=== PATIENT | female | born 1955 | race Caucasian/White ===

== ENCOUNTER → 2018-08-19 07:17 | Outpatient (CLI) | payer OTHER, SELFPAY ==
[2018-08-19 10:52] LABS: Anion Gap 4 (5-15); BUN 21 mg/dL (7-18); BUN/Creat Ratio 19.6 RATIO (10-20); CRP < 2.90 mg/L (0.0-3.0); Calcium,Total 8.8 mg/dL (8.5-10.1); Chloride 108 mmol/L (98-107); Cholesterol 239 mg/dL (200); Creatinine, Serum 1.07 mg/dL (0.55-1.02); EST Glomerular Filtration Rate 55 mL/min (>60); Est Glom Filt Rate - Afr Amer 67 mL/min (>60); Glucose 86 mg/dL (74-106); High Density Lipoprotein 71 mg/dL; Potassium 3.3 mmol/L (3.5-5.1); Sodium Level 141 mmol/L (136-145); T4 Total, Thyroxin 7.2 ug/dL (4.8-13.9); Thyroid Stim Hormone (TSH) 9.63 uIU/mL (0.358-3.74); Triglycerides 125 mg/dL; Very Low Density Lipoprotein 25 mg/dL (5-40)
== END ==
DX: I73.00 Raynaud's syndrome without gangrene (principal); E78.5 Hyperlipidemia, unspecified; E03.9 Hypothyroidism, unspecified
CPT/HCPCS: 36415; 80048; 80061; 84436; 84443; 86038; 86140

== ENCOUNTER → 2018-09-02 08:51 | Outpatient (CLI) | payer OTHER, SELFPAY ==
--- NOTE | 2018-09-02 09:07 | ART_ITS ---
Reason For Study: PVD/suspected raynauds Procedure A bilateral lower extremity continuous wave Doppler with analog waveform analysis,segmental pressures,and ankle brachial indexes without exercise. Left Segmental Pressures Left brachial= 120mmHg. Left posterior tibial artery = 134mmHg. Left dorsalis pedis artery = 128mmHg. Left digit = 68 mmHg. The left dorsalis pedis waveforms are triphasic. The left posterior tibial artery waveforms are triphasic. Right Segmental Pressures Right brachial= 114mmHg. Right posterior tibial artery = 132mmHg. Right dorsalis pedis artery = 133mmHg. Right digit = 69 mmHg. The right dorsalis pedis waveforms are triphasic. The right posterior tibial artery waveforms are triphasic. Indices The right ankle brachial index by the dorsalis pedis is 1.11. The right ankle brachial index by the posterior tibial artery is 1.10. The right digital-brachial index is 0.58. The left ankle brachial index by the dorsalis pedis is 1.07. The left ankle brachial index by the posterior tibial artery is 1.12. The left digital-brachial index is 0.57. Interpretation Summary Triphasic Doppler waveforms are noted at ankle level bilaterally. Pulse-volume recording waveform amplitudes appear diminished at digital level bilaterally. Resting ankle-brachial indices are normal bilaterally. Digital-brachial indices are mildly diminished bilaterally. Arterial flow appears to be relatively normal at ankle level bilaterally. There is evidence of mild, distal, small-vessel arterial occlusive disease at digital level in the lower extremities bilaterally. Ordering Physician: NKECHI GIMENEZ Performed By: Jessica Florian RVT
== END ==
DX: I73.9 Peripheral vascular disease, unspecified (principal)
CPT/HCPCS: 93923

== ENCOUNTER → 2018-10-04 15:19 | Outpatient (CLI) | payer OTHER, SELFPAY ==
[2017-01-19 06:32] VITALS: BMI 19.7
[2018-10-04 17:31] LABS: Absolute Lymphocyte Count 2.07 X10^3/ul (0.83-4.51); Absolute Neutrophil Count 2.6 X10^3/uL (2.0-7.7); Basophil# 0.02 X10^3/uL; Basophil% 0.4 % (0-1); Eosinophil# 0.11 X10^3/uL; Hematocrit 41.8 % (37-47); Hemoglobin 13.4 g/dl (12.0-15.0); Lymphocyte # 2.07 X10^3/ul (4.0); Lymphocyte % 37.2 % (19-41); Mean Corp Hgb Conc 32.1 g/gl (32-36); Mean Corpuscular Hgb 29.5 pg (27.0-32.0); Mean Corpuscular Volume 91.9 fL (81-99); Mean Platelet Vol. 10.8 fl (6.2-12.0); Monocyte# 0.73 X10^3/uL; Monocyte% 13.1 % (0-10); Neutrophil # 2.62 X10^3/uL (2.7-7.7); Neutrophil % 47.1 % (47-70); Platelet Count 236 K/mm3 (150-450); RBC Distribution Width CV 14.1 % (11.6-14.6); RBC Distribution Width SD 46.4 fl (35.1-43.9); Red Blood Count 4.55 M/mm3 (4.2-5.4); White Blood Count 5.6 K/mm3 (4.4-11.0)
[2018-10-04 17:33] LABS: Color, Urine Yellow (Yellow); Glucose, Dipstick Normal (Normal); Ketone-Dipstick Negative (Negative); Leukocyte Esterase-Dipstick 500 /ul (Negative); Nitrite-Dipstick Negative (Negative); Occult Blood-Urine Negative /ul (Negative); Protein-Dipstick Negative (Negative); Urine Bilirubin Dipstick Negative (Negative); Urine Clarity Clear (Clear); Urine Urobilinogen Normal (Normal)
[2018-10-04 17:42] LABS: POSITIVE COUNT NO; POSITIVE DIFFERENTIAL NO; POSITIVE MORPHOLOGY NO
[2018-10-04 17:52] LABS: ALB/GLOB Ratio 0.8 RATIO (0.9-2.4); AST(SGOT) 18 U/L (15-37); Alanine Aminotransfer ALT/SGPT 35 U/L (13-56); Albumin, Serum 3.2 g/dL (3.2-5.0); Alkaline Phosphatase 121 U/L (45-117); Anion Gap 7 (5-15); BUN 27 mg/dL (7-18); BUN/Creat Ratio 27.1 RATIO (10-20); Calcium,Total 8.6 mg/dL (8.5-10.1); Chloride 108 mmol/L (98-107); EST Glomerular Filtration Rate 60 mL/min (>60); Est Glom Filt Rate - Afr Amer 72 mL/min (>60); Globulin 3.9 g/dL (2.2-4.2); Glucose 77 mg/dL (74-106); Potassium 3.9 mmol/L (3.5-5.1); Protein, Total 7.1 g/dL (6.4-8.2); Sodium Level 142 mmol/L (136-145)
[2018-10-07 19:39] LABS: Anti-Smooth Muscle ABS 13 Units (0-19); HEPATITIS B SURFACE AG Negative (Negative); Hep C Antibodies <0.1 s/co ratio (0.0-0.9)
== END ==
DX: N18.9 Chronic kidney disease, unspecified (principal); M32.9 Systemic lupus erythematosus, unspecified
CPT/HCPCS: 36415; 80053; 81002; 83516; 85025; 86225; 86235; 86803; 87340

== ENCOUNTER → 2019-04-11 16:43 | Outpatient (CLI) | payer OTHER, SELFPAY ==
[2017-01-19 06:32] VITALS: BMI 19.7
[2019-04-11 18:02] LABS: AST(SGOT) 18 U/L (15-37); Alanine Aminotransfer ALT/SGPT 32 U/L (13-56); Albumin, Serum 3.7 g/dL (3.2-5.0); Alkaline Phosphatase 122 U/L (45-117); Globulin 3.6 g/dL (2.2-4.2); Protein, Total 7.3 g/dL (6.4-8.2); Thyroid Stim Hormone (TSH) 9.18 uIU/mL (0.358-3.74)
[2019-04-16 17:11] LABS: Thyroglobulin Antibody < 1.0 IU/mL (0.0-0.9); Thyroid Peroxidase AB 386 IU/mL (0-34)
== END ==
DX: E03.9 Hypothyroidism, unspecified (principal)
CPT/HCPCS: 36415; 80076; 84443; 86376; 86800

== ENCOUNTER → 2019-04-18 10:26 | Outpatient (CLI) | payer OTHER, SELFPAY ==
[2017-01-19 06:32] VITALS: BMI 19.7
[2019-04-21 14:07] LABS: Thyroid Peroxidase AB 390 IU/mL (0-34)
[2019-04-21 15:10] LABS: Thyroglobulin Antibody < 1.0 IU/mL (0.0-0.9)
== END ==
DX: E03.9 Hypothyroidism, unspecified (principal)
CPT/HCPCS: 36415; 86376; 86800

== ENCOUNTER → 2019-11-12 07:31 | Outpatient (CLI) | payer OTHER, SELFPAY ==
[2019-07-07 06:41] VITALS: BMI 19.7
== END ==
DX: E03.9 Hypothyroidism, unspecified (principal)
CPT/HCPCS: 36415; 84443

== ENCOUNTER → 2020-01-16 13:01 | Outpatient (CLI) | payer OTHER, SELFPAY ==
[2019-07-07 06:41] VITALS: BMI 19.7
--- NOTE | 2020-01-16 13:40 | BI_ITS ---
MAMMOGRAPHY - BILATERAL SCREENING REASON FOR EXAM: Female, 64 years old. Routine annual screening examination. PERTINENT HISTORY: Sister with breast cancer. Aunt with breast cancer. TECHNIQUE: Digital bilateral breast michelle (3D mammographic acquisition) in the CC and MLO projections. 2-D mediolateral oblique (MLO) and craniocaudad (CC) views of both breasts were obtained. CAD: Full Field Digital Mammography with Computer Added Detection was performed. COMPARISON: Comparison is made with prior examination dated 05/08/2017 and 09/11/2012. FINDINGS: Breast Composition: The breasts are extremely dense, which lowers the sensitivity of mammography. There are no dominant masses or suspicious calcifications. No other significant abnormalities are identified. There has been no significant change since the prior study. BI/SCREEN MAMM (CAD) W/MICHELLE BILAT IMPRESSION: Stable bilateral screening mammogram. Yearly follow-up mammogram recommended. (A) ASSESSMENT CATEGORY: BIRADS Category 1: Negative. A letter regarding these results will be sent to the patient by the facility within 30 days. Approximately 10% of breast cancers are not detected by mammography. A normal mammogram should not delay biopsy of a clinically suspicious abnormality. [id number] Electronically Signed: Dario Renteria, at 14:13 EDT , Service support ,
== END ==
DX: Z12.31 Encounter for screening mammogram for malignant neoplasm of breast (principal)
CPT/HCPCS: 77063; 77067

== ENCOUNTER 2020-05-21 12:43 | Outpatient (RCR) | payer OTHER, SELFPAY ==
[2019-07-07 06:41] VITALS: BMI 19.7
== END 2020-05-21 23:59 ==
LOC: IMMUN 12:43
PROVIDERS: Visit Provider Family Medicine
DX: Z23 Encounter for immunization (principal)
CPT/HCPCS: 0011A; 0012A; 91301

== ENCOUNTER → 2020-11-19 07:20 | Outpatient (CLI) | payer OTHER, SELFPAY ==
[2019-07-07 06:41] VITALS: BMI 19.7
[2020-11-19 10:32] LABS: T4 Total, Thyroxin 7.6 ug/dL (4.8-13.9); Thyroid Stim Hormone (TSH) 9.99 uIU/mL (0.358-3.74)
[2020-11-20 08:35] LABS: Thyroid Peroxidase AB 396 IU/mL (0-34)
== END ==
DX: E03.9 Hypothyroidism, unspecified (principal)
CPT/HCPCS: 36415; 84436; 84443; 86376

== ENCOUNTER → 2021-01-20 15:18 | Outpatient (CLI) | payer OTHER, SELFPAY ==
--- NOTE | 2021-01-20 15:22 | BI_ITS ---
MAMMOGRAPHY - BILATERAL SCREENING REASON FOR EXAM: Female, 65 years old. Routine annual screening examination. PERTINENT HISTORY: Aunt with breast cancer. TECHNIQUE: Digital bilateral breast michelle (3D mammographic acquisition) in the CC and MLO projections. 2-D mediolateral oblique (MLO) and craniocaudad (CC) views of both breasts were obtained. CAD: Full Field Digital Mammography with Computer Added Detection was performed. COMPARISON: Comparison is made with prior examination of 01/16/2020 and 05/08/2017. FINDINGS: Breast Composition: The breasts are extremely dense, which lowers the sensitivity of mammography. There are no dominant masses or suspicious calcifications. Stable small benign-appearing bilateral axillary nodes. No other significant abnormalities are identified. There has been no significant change since the prior study. BI/SCRN MAMM (CAD)W/MICHELLE BILAT IMPRESSION: Stable bilateral screening mammogram. Yearly follow-up mammogram recommended. (A) ASSESSMENT CATEGORY: BIRADS Category 2: Benign. A letter regarding these results will be sent to the patient by the facility within 30 days. Approximately 10% of breast cancers are not detected by mammography. A normal mammogram should not delay biopsy of a clinically suspicious abnormality. [id number] Electronically Signed: Dario Renteria MD at 8:36 EDT , Service support ,
== END ==
DX: Z12.31 Encounter for screening mammogram for malignant neoplasm of breast (principal)
CPT/HCPCS: 77063; 77067

== ENCOUNTER → 2022-01-27 | Outpatient (CLI) | payer OTHER, SELFPAY ==
--- NOTE | 2022-01-27 08:34 | BI_ITS ---
MAMMOGRAPHY - BILATERAL SCREENING REASON FOR EXAM: Female, 66 years old. Routine annual screening examination. PERTINENT HISTORY: Sister with breast cancer. Aunts with breast cancer. TECHNIQUE: Digital bilateral breast michelle (3D mammographic acquisition) in the CC and MLO projections. 2-D mediolateral oblique (MLO) and craniocaudad (CC) views of both breasts were obtained. CAD: Full Field Digital Mammography with Computer Added Detection was performed. COMPARISON: Comparison is made with prior study dated 01/20/2021 and 01/16/2020. FINDINGS: Breast Composition: The breasts are extremely dense, which lowers the sensitivity of mammography. There are no dominant masses or suspicious calcifications. Stable small benign-appearing bilateral axillary lymph nodes. No other significant abnormalities are identified. There has been no significant change since the prior study. BI/SCRN MAMM (CAD)W/MICHELLE BILAT IMPRESSION: Stable bilateral screening mammogram. Yearly follow-up mammogram recommended. (A) ASSESSMENT CATEGORY: BIRADS Category 2: Benign. A letter regarding these results will be sent to the patient by the facility within 30 days. Approximately 10% of breast cancers are not detected by mammography. A normal mammogram should not delay biopsy of a clinically suspicious abnormality. [id number] Electronically Signed: Dario Renteria MD at 10:03 EDT ,
== END | disposition home or self-care (01) ==
LOC: OPBI 08:32
PROVIDERS: PCP Internal Medicine; Visit Provider Nurse Practitioner Women's Health
DX: Z12.31 Encounter for screening mammogram for malignant neoplasm of breast (principal)
CPT/HCPCS: 77063; 77067

== ENCOUNTER → 2022-11-14 | Outpatient (CLI) | payer OTHER, SELFPAY ==
--- NOTE | 2022-11-13 | FLU_PTH ---
PATIENT: JAMARI THOMPSON LOC: [facility] U#:[id number] AGE/SX: 66/F ROOM: RE11/14/[address]: Dr. Kasey Go MD : 1955 BED: DIS: 11/14/2022 SPEC #: [id number] RECD: 11/14/22 12:11 STATUS: UNNO JHON #: [id number] ERNIE: 11/13/22 00:[address]: Kasey Go DEPT: CYTOLOGY RECD BY: Keely Washington ENTERED: 11/14/22 13:19 SP TYPE: Fluid OTHR DR: Dr. Tracy Treviño MD Tissues: A - Thyroid gland, NOS B - Thyroid gland, NOS Procedures: Special Stain Group II Surgery Specimen Level IV Cytospin Fluid Cytology Other HEADER OPERATION: Ultrasound-guided fine needle aspiration of right thyroid PRE-OP DIAGNOSIS: Abnormal ultrasound TISSUE SUBMITTED: A - FNA right thyroid fluid, B - FNA right thyroid x6 slides DIAGNOSIS CYTOLOGY A. Right thyroid fluid, fine needle aspiration (cytospin and cell block): Negative for malignant cells. See comment. B. Right thyroid, fine needle aspiration (smears): Consistent with benign follicular/colloid nodule ([place] Category II). Adequate for evaluation. See comment. SJ:anca 11/15/2022 COMMENT A. A few clusters of benign follicular cells are noted. Correlation with clinical, radiologic findings and appropriate follow up are necessary. The [place] System for thyroid diagnostic categorization was used in the evaluation of this case. CYTOLOGY STUDY Slides are reviewed. CYTOLOGY GROSS A - Received is 30 ml of cloudy brown fluid labeled with the patient's name and and designated per the requisition as right thyroid. Submitted for cytology preparation including cell block. B - Received are six smears labeled with the patient's name and designated per the requisition as right thyroid. Submitted for staining. / anca 11/14/2022 TC:5 CPT: 49861 x2, 30458
== END | disposition home or self-care (01) ==
LOC: LABSPEC 12:42
PROVIDERS: PCP Internal Medicine; Referring Provider Surgery; Visit Provider Surgery
DX: R94.6 Abnormal results of thyroid function studies (principal)
CPT/HCPCS: 88108; 88161; 88305; 88313

== ENCOUNTER → 2023-01-29 | Outpatient (CLI) | payer MEDICARE, SELFPAY ==
--- NOTE | 2023-01-29 08:25 | BI_ITS ---
MAMMOGRAPHY - BILATERAL SCREENING REASON FOR EXAM: Female, 67 years old. Routine annual screening examination. PERTINENT HISTORY: Sister with breast cancer. Aunt with breast cancer. TECHNIQUE: Digital bilateral breast michelle (3D mammographic acquisition) in the CC and MLO projections. 2-D mediolateral oblique (MLO) and craniocaudad (CC) views of both breasts were obtained. CAD: Full Field Digital Mammography with Computer Added Detection was performed. COMPARISON: Comparison is made with prior study dated January 27, 2022 and January 20, 2021. FINDINGS: Breast Composition: The breasts are extremely dense, which lowers the sensitivity of mammography. There are no dominant masses or suspicious calcifications. Stable small benign-appearing bilateral axillary lymph nodes. No other significant abnormalities are identified. There has been no significant change since the prior study. BI/SCRN MAMM (CAD)W/MICHELLE BILAT IMPRESSION: Stable bilateral screening mammogram. Yearly follow-up mammogram recommended. (A) ASSESSMENT CATEGORY: BIRADS Category 2: Benign. A letter regarding these results will be sent to the patient by the facility within 30 days. Approximately 10% of breast cancers are not detected by mammography. A normal mammogram should not delay biopsy of a clinically suspicious abnormality. [id number] Electronically Signed: Dario Renteria MD at 9:27 EDT ,
== END | disposition home or self-care (01) ==
PROVIDERS: PCP Internal Medicine; Referring Provider Nurse Practitioner Women's Health; Visit Provider Nurse Practitioner Women's Health
DX: Z12.31 Encounter for screening mammogram for malignant neoplasm of breast (principal)
CPT/HCPCS: 77063; 77067

== ENCOUNTER 2023-04-04 21:39 | Emergency (ER) | payer MEDICARE, SELFPAY ==
[2023-04-04 21:39] VITALS: BP 140/85; PULSE 75; RESP 16; TEMP 36.2; O2SAT 96; BMI 22.8
--- NOTE | 2023-04-04 21:51 | EX.ED.UPPERE ---
HPI History of Present Illness Chief Complaint: Laceration Narrative Narrative: 67-year-old female who denies significant past medical history presents with her sister for a laceration on her left hand that she sustained when she cut it on a broken pipe plate that was ceramic. The pipeline had already been broken and then was in the garbage. When she went to throw away something else, she pushed the item down, and sustained a laceration to her left hand from the broken pipe plate. She states that she sustained a laceration approximately 2 hours ago. She is unsure of her last tetanus immunization, may have been 10 years ago. She tried to get the laceration on her left hand at the base of her pinky finger to stop and it finally did, but she is not sure how deep it is. She denies any foreign body sensation but states she has a throbbing pain in her left hand. She is right-hand dominant. She denies other injury. 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 Had mets. had done radiation. Doing chemo now. No surgery. Surgical History Cataract extraction status of right eye H/O inguinal hernia repair History of rhinoplasty Social History Smoking Status: Never smoker alcohol intake: never substance use type: does not use what type of physical activity do you participate in: walking frequency: 5-6 times per week seatbelt use: always do you feel safe at home: Yes additional social history: Single ROS ROS ED ROS Narrative Constitutional: No fever, no chills. HEENT: No sore throat. No neck pain. No loss of vision. No rhinorrhea. Cardiovascular: No chest pain. No palpitations. No pedal edema. Respiratory: No cough, no shortness of breath. Abdominal: No abdominal pain. No nausea. No vomiting. Genitourinary: No dysuria. No hematuria. Musculoskeletal: No myalgias. No arthralgias. Neurologic: No headaches. No dizziness. No lightheadedness. Skin: No rash. No change in color. Positive laceration to left palm Psychiatric: No depression. No anxiety. EXAM Physical Exam Narrative Exam Narrative: Afebrile. Vital signs noted. HEENT: Normocephalic. Atraumatic. PERRL, EOMI. Neck soft and supple. No point tenderness or step off. Cardiovascular: Regular rate and rhythm. No murmurs, rubs, or gallops appreciated. Respiratory: No tachypnea. Lungs clear to auscultation bilaterally. Gastrointestinal: Abdomen soft, nontender, with normoactive bowel sounds. No rebound or guarding. Neurological: Awake. Alert. Nonfocal, nonlateralizing. Skin: No rash. Normal color. No pallor. 1.5 cm laceration running obliquely on palm of left hand below fifth digit. Minimal oozing from midportion of the laceration. Full range of motion of left digits. Good capillary refill. Palpable radial pulse. Musculoskeletal: No pedal edema. Full range of motion extremities. Const Vital Signs: 04/04/23 21:39 Temperature 97.2 F L Temperature Source Temporal Pulse Rate 75 Respiratory Rate 16 Blood Pressure 140/85 H Blood Pressure Mean 103 Pulse Ox 96 Oxygen Delivery Method Room Air MDM MDM MDM Narrative Medical decision making narrative: I do not feel x-rays are indicated. Her tetanus immunization will be updated. I do feel that in order to achieve hemostasis, that the wound should be cleansed and sutures applied. She denies foreign body sensation. She was informed of the risk of infection and scarring and acknowledges an understanding. See procedure note for full details. 3 simple interrupted sutures using five-point 0 Ethilon were used for the skin closure and hemostasis. She was placed in a dry sterile dressing. She will have the sutures removed by her primary care provider in the next 7 to 10 days or return to the emergency department. She will take [id number] analgesics as needed. I feel she can be discharged safely home with follow-up. Return instructions to the emergency department reviewed. Disposition is discharged home in improved and stable condition. History & Record Review Discussion w/independent historian: Patient Additional record(s) reviewed:: Prior ED visit (Noncontributory to current chief complaint.) Differential Diagnosis Differential Diagnosis: Not applicable. Procedures Lacerations Left hand: Length: 0.59 in Depth: Skin Shape: Linear Prep: Sterile Conditions and Shure-Clens Laceration repair: Irrigated, Lidocaine and Local Number of Sutures/[place]: 3 Suture Information: Ethilon, Simple and 5-0 Comment: Patient tolerated procedure well. Discharge Plan Triage Chief Complaint: Laceration ED Provider: Manjeet Moncada Dx/Rx/DC Orders Clinical Impression: Need for Tdap vaccination, Laceration of hand, left Instructions: ED Laceration, Hand: All Closures Prescriptions: No Action cholecalciferol (vitamin D3) [Vitamin D3] 50 mcg (2,000 unit) capsule 50 mcg PO DAILY Primary Care Provider: Tracy Treviño Referrals: Tracy Treviño MD [Primary Care Provider] - 10 Day for suture removal Activity Restrictions/Additional Instructions: Return with fever, drainage of pus from the wound, increased redness of wound, new or worsening symptoms. Disposition Disposition: Home, Self Care
[2023-04-04] MEDS: Diphth,Pertuss(Acell),Tet Vac 0.5 ML Vial IM (21:57)
[2023-04-04] MEDS: Lidocaine 1% (20 ml mdv) 20 ML Vial INFILT (21:57)
[2023-04-04 22:39] VITALS: BP 124/68; PULSE 69
== END 2023-04-04 22:50 | disposition home or self-care (01) ==
PROVIDERS: Emergency Provider Emergency Medicine; PCP Internal Medicine; Visit Provider Emergency Medicine
DX: S61.412A Laceration without foreign body of left hand, initial encounter (principal); Z23 Encounter for immunization; X58.XXXA Exposure to other specified factors, initial encounter
CPT/HCPCS: 12001; 90471; 90715; 99283

== ENCOUNTER 2023-05-03 15:18 | Emergency (ER) | payer MEDICARE, SELFPAY ==
[2023-05-03 15:19] VITALS: BP 130/85; PULSE 72; RESP 18; TEMP 35.5; O2SAT 100; BMI 21.7
[2023-05-03 15:56] LABS: Absolute Lymphocyte Count 2.63 X10^3/uL (0.83-4.51); Absolute Neutrophil Count 3.1 X10^3/uL (2.0-7.7); Basophil# 0.04 X10^3/uL; Basophil% 0.6 % (0-1); Eosinophil# 0.12 X10^3/uL; Eosinophils% 1.9 % (0-5); Hematocrit 45.6 % (37-47); Hemoglobin 14.4 g/dL (12.0-15.0); Lymphocyte # 2.63 X10^3/ul (0.83-4.51); Lymphocyte % 41.1 % (19-41); Mean Corp Hgb Conc 31.6 g/dL (32-36); Mean Corpuscular Hgb 29.2 pg (27.0-32.0); Mean Corpuscular Volume 92.5 fL (81-99); Mean Platelet Vol. 10.8 fl (6.2-12.0); Monocyte# 0.54 X10^3/uL; Monocyte% 8.4 % (0-10); NRBC Flagged by Analyzer 0 % (0-5); Neutrophil # 3.05 X10^3/uL (2.7-7.7); Neutrophil % 47.7 % (47-70); Platelet Count 299 K/mm3 (150-450); RBC Distribution Width CV 13.5 % (11.6-14.6); RBC Distribution Width SD 46.2 fl (35.1-43.9); Red Blood Count 4.93 M/mm3 (4.2-5.4); White Blood Count 6.4 K/mm3 (4.4-11.0)
[2023-05-03 16:14] LABS: ALB/GLOB Ratio 0.9 RATIO (0.9-2.4); AST(SGOT) 19 U/L (15-37); Alanine Aminotransfer ALT/SGPT 23 U/L (13-56); Albumin, Serum 3.5 g/dL (3.2-5.0); Alkaline Phosphatase 94 U/L (45-117); Anion Gap 5 (5-15); BUN 27 mg/dL (7-18); BUN/Creat Ratio 24.5 RATIO (10-20); Calcium,Total 8.7 mg/dL (8.5-10.1); Chloride 110 mmol/L (98-107); EST Glomerular Filtration Rate 53 mL/min (>60); Est Glom Filt Rate - Afr Amer 64 mL/min (>60); Estimated Creatinine Clearance 42.86 ml/min; Globulin 3.8 g/dL (2.2-4.2); Glucose 93 mg/dL (74-106); Potassium 3.6 mmol/L (3.5-5.1); Protein, Total 7.3 g/dL (6.4-8.2); Sodium Level 140 mmol/L (136-145)
[2023-05-03 16:14] LABS: Mucous, Urine 0 SEEN /hpf (<or=2+); Squamous Epithelial Cells - UA 0 SEEN /hpf (5-10)
[2023-05-03 16:17] LABS: Color, Urine Yellow (Yellow); Glucose, Dipstick Normal (Normal); Ketone-Dipstick 15 mg/dl (Negative); Leukocyte Esterase-Dipstick 500 /ul (Negative); Nitrite-Dipstick Negative (Negative); Occult Blood-Urine 50 /ul (Negative); Protein-Dipstick 30 mg/dl (Negative); Urine Bilirubin Dipstick Negative (Negative); Urine Clarity Sl. Cloudy (Clear); Urine Urobilinogen Normal (Normal)
[2023-05-03 16:27] LABS: Bacteria 1+ /hpf (None Seen); Red Blood Cells-Urine 10-25 SEEN /hpf (0-5); Transitional Epithelial - Ur 5-10 SEEN /hpf (0-5); White Blood Cells >100 SEEN /hpf (0-5)
--- NOTE | 2023-05-03 16:57 | EDS_ITS ---
HPI HPI - Female History of Present Illness Chief Complaint: Complaint Narrative Narrative: 67-year-old female presenting with dysuria, urinary frequency, hematuria. Patient states she has not had a UTI in many years. She states he started having symptoms a few days ago. No fevers. No chills. She was sick around [place] and thought she had something viral which resolved and she did not fevers at that time. Currently she denies chest pain, palpitations, shortness of breath, cough, fever, chills, myalgias. No abdominal pain or flank pain. No diarrhea or constipation. Patient states he simply has a urinary tract infection symptoms and generally feels unwell. She states she has been able to eat and drink and she is not vomiting. She went to urgent care to have her self assessed and they told her to come to the emergency room for IVs. She is unsure why as she states has been drinking plenty of fluids at home. 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 Had mets. had done radiation. Doing chemo now. No surgery. Surgical History Cataract extraction status of right eye H/O inguinal hernia repair History of rhinoplasty Social History Smoking Status: Never smoker alcohol intake: never substance use type: does not use what type of physical activity do you participate in: walking frequency: 5-6 times per week seatbelt use: always do you feel safe at home: Yes additional social history: Single ROS ROS ED Constitutional Constitutional ED: Denies chills, fever(s) or sweats Eyes Eyes: Denies blurry vision or change in vision ENT ENT ED: Denies ear pain, rhinorrhea or sore throat Cardiovascular Cardiovascular: Denies chest pain, palpitations or racing heartbeat Respiratory/Chest Respiratory/Chest: Denies cough, dyspnea or sputum Gastrointestinal Gastrointestinal: Denies abdominal pain, constipation, diarrhea or vomiting Genitourinary Genitourinary ED: Reports dysuria, hematuria and urinary frequency Musculoskeletal Musculoskeletal: Denies arthralgias, myalgias or neck pain Integumentary Denies abscess, Abrasions or rash Neurologic Neurologic: Denies headache(s), paresthesias or weakness Psychiatric Psychiatric: Denies anxiety, depression, suicidal ideation or suicidal thoughts Endocrine Endocrinology: Denies polydipsia or polyuria EXAM Physical Exam Const Vital Signs: 05/03/23 15:19 Temperature 96 F L Temperature Source Temporal Pulse Rate 72 Respiratory Rate 18 Blood Pressure 130/85 H Blood Pressure Mean 100 Pulse Ox 100 Oxygen Delivery Method Room Air Positive well nourished General Appearance ED: NAD HEENT Reports moist mucous membranes Eyes PERRL and EOMs intact bilaterally Neck no lymphadenopathy Chest Wall inspection of chest normal Resp normal respiratory effort and clear to auscultation bilaterally Auscultation: Negative for rales, rhonchi or wheezes Cardio regular rate and regular rhythm GI normal to inspection, nondistended, normoactive bowel sounds Neuro oriented x3 and CN's II-XII intact bilaterally Sensorium / Orientation: alert Psych mental status grossly normal Skin no rashes or lesions noted MDM MDM MDM Narrative Medical decision making narrative: Well-appearing 67-year-old female with urinary symptoms. Vital signs are stable she is afebrile. She is pleasant and smiling and appears to be in no acute distress. She states she simply has UTI symptoms and she does not feel she is dehydrated. The labs were put in while the patient was in the waiting room. CBC was obtained to assess for blood cell count, hemoglobin, platelets. CMP to assess liver function and electrolytes. Urinalysis to assess for UTI. On examination she has no CVA tenderness. Is likely she has UTI. CBC shows no leukocytosis. Hemoglobin hematocrit are stable. Platelets are normal. Function within normal limits. Slightly elevated 1.10 and GFR slightly decreased at 53. BUN/creatinine ratio 24.5. Patient was given a liter normal saline. Patient will be given Zofran and Keflex for home. Return precautions were discussed. Impression: 1. Cystitis 2. Dehydration Lab Data Attestation: I reviewed the patient's lab results. Labs: Laboratory Results - last 24 hr 05/03/23 05/03/23 15:30 15:55 WBC 6.4 RBC 4.93 Hgb 14.4 Hct 45.6 MCV 92.5 MCH 29.2 MCHC 31.6 L RDW Std Deviation 46.2 H RDW Coeff of [place] 13.5 Plt Count 299 MPV 10.8 Immature Gran % (Auto) 0.300 Neut % (Auto) 47.7 Lymph % (Auto) 41.1 H [place] % (Auto) 8.4 Eos % (Auto) 1.9 Baso % (Auto) 0.6 Absolute Neuts (auto) 3.1 Absolute Lymphs (auto) 2.63 Nucleated RBC % 0 Sodium 140 Potassium 3.6 Chloride 110 H Carbon Dioxide 25.0 Anion Gap 5 BUN 27 H Creatinine 1.10 H Estim Creat Clear Calc 42.86 Est GFR (MDRD) Af Amer 64 Est GFR (MDRD) Non-Af 53 L BUN/Creatinine Ratio 24.5 H Glucose 93 Calcium 8.7 Total Bilirubin 0.60 AST 19 ALT 23 Alkaline Phosphatase 94 Total Protein 7.3 Albumin 3.5 Globulin 3.8 Albumin/Globulin Ratio 0.9 Urine Color Yellow Urine Clarity Sl. Cloudy Urine pH 5.0 Ur Specific [place] 1.030 Urine Protein 30 H Urine Glucose (UA) Normal Urine Ketones 15 H Urine Occult Blood 50 H Urine Nitrite Negative Urine Bilirubin Negative Urine Urobilinogen Normal Ur Leukocyte Esterase 500 H Urine RBC 10-25 SEEN Urine WBC >100 SEEN Ur Squamous Epith Cells 0 SEEN Ur Transition Epith Cell 5-10 SEEN Urine Bacteria 1+ Urine Mucus 0 SEEN Discharge Plan Triage Chief Complaint: Complaint Other Complaint: Weakness ED Provider: Rebel Grider Dx/Rx/DC Orders Instructions: ED Cystitis Female Adult Prescriptions: New cephalexin 500 mg capsule 500 mg PO Q12 Qty: 14 0RF No Action cholecalciferol (vitamin D3) [Vitamin D3] 50 mcg (2,000 unit) capsule 50 mcg PO DAILY Primary Care Provider: Tracy Treviño Referrals: Tracy Treviño MD [Primary Care Provider] - Disposition Disposition: Home, Self Care
[2023-05-03] MEDS: Cephalexin 250 MG Capsule 500 MG PO (17:10)
--- OUTSIDE RECORDS SUMMARY | 2023-05-03 19:01 | XMS RPT_ITS | CCD ---
Author Name Unknown Address [address] [place] [address] Organization [facility] Care Team Providers Care Oil Heater Operator Name Role Phone Soheila KAUR, Tiffany Carey Unavailable Nitza Treviño MD Primary Care Provider Nitza Treviño MD Primary Care Provider Nitza Treviño MD Primary Care Provider CORINA KENT Attending Unavailable TALAMPAS, NITZA D Primary Care Unavailable CORINA KENT Attending Unavailable TALAMPAS, NITZA D Primary Care Unavailable KASEY GO Attending Unavailable TALAMPAS, NITZA D Primary Care Unavailable KASEY GO Attending Unavailable TALAMPAS, NITZA D Primary Care Unavailable KASEY GO Attending Unavailable YOLI CORINA Referring Unavailable TALAMPAS, NITZA D Primary Care Unavailable YOLICORINA Referring Unavailable TALAMPAS, NITZA D Primary Care Unavailable YOLICORINA Attending Unavailable TALAMPAS, NITZA D Primary Care Unavailable TALAMPAS, NITZA D Referring Unavailable TALAMPAS, NITZA D Primary Care Unavailable YOLICORINA Attending Unavailable TALAMPAS, NITZA D Primary Care Unavailable TALAMPAS, NITZA D Referring Unavailable TALAMPAS, NITZA D Primary Care Unavailable YOLI, CORINA Referring Unavailable TALAMPAS, NITZA D Primary Care Unavailable Allergies Allergy Classification Reported Allergen(s) Allergy Type Date of Onset Reaction(s) Facility (2 sources) erythromycin Drug Allergy 7 GI Upset [facility] (11 sources) Mold Extract Drug Allergy 0 [facility] Work Phone: (7 sources) ?asa [Other] Propensity to adverse reactions 0 [facility] Work Phone: (11 sources) anti-inflammatory [Other] Propensity to adverse reactions 0 [facility] Work Phone: (7 sources) calcium maddy teo [Other] Propensity to adverse reactions 0 [facility] Work Phone: (11 sources) claririn [Other] Propensity to adverse reactions 0 [facility] Work Phone: (11 sources) decongestants [Other] Propensity to adverse reactions 0 [facility] Work Phone: (11 sources) dog [Other] Propensity to adverse reactions 0 [facility] Work Phone: (11 sources) dust [Other] Propensity to adverse reactions 0 [facility] Work Phone: (11 sources) erythromyocin [Other] Propensity to adverse reactions 0 GI Upset [facility] (11 sources) Grasses [Other] Propensity to adverse reactions 0 [facility] Work Phone: (11 sources) Milk [Other] Propensity to adverse reactions 0 [facility] Work Phone: (1 source) OTHER; Translations: [OTHER] Propensity to adverse reactions (disorder) [facility] Medications Completed/Discontinued Medications Medication Drug Class(es) Dates Sig (Normalized) Sig (Original) betamethasone 1 mg/ml topical cream (5 sources) Corticosteroid Start: 10-19-2008 End: 05-17-2022 BETAMETHASONE VALERATE 0.1 % TOPICAL CREAM APPLY AT BEDTIME FOR 14 DAYS THEN TWICE A WEEK 0 10/19/2008 05/17/2022 Discontinued Problems Active Problems Problem Classification Problem Date Documented Da te Episodic/Chronic Abdominal pain (1 source) Indigestion; Translations: [Epigastric pain] Episodic Nutritional deficiencies (4 sources) Vitamin D deficiency; Translations: [Vitamin D deficiency, unspecified] Onset: 07-14-2022 Chronic Other circulatory disease (11 sources) Raynaud's disease; Translations: [Raynaud's syndrome without gangrene] Onset: 09-20-2021 09-20-2021 Chronic Other gastrointestinal disorders (1 source) Swallowing painful; Translations: [Dysphagia, unspecified] Episodic Other screening for suspected conditions (not mental disorders or infectious disease) (2 sources) Finding of thyroid gland; Translations: [Abnormal findings on diagnostic imaging of other specified body structures] Onset: 11-13-2022 11-13-2022 Chronic Other screening for suspected conditions (not mental disorders or infectious disease) (3 sources) Patient encounter status; Translations: [Encounter for screening mammogram for malignant neoplasm of breast] Episodic Residual codes; unclassified (1 source) Postmenopausal state; Translations: [Asymptomatic menopausal state] Episodic Thyroid disorders (20 sources) Goiter; Translations: [Nontoxic goiter, unspecified] Onset: 05-17-2022 Chronic Unclassified (2 sources) Screening for malignant neoplasm of colon ; Translations: [Encounter for screening for malignant neoplasm of colon] Onset: 03-29-2017 03-29-2017 Unclassified (2 sources) Screening mammography ; Translations: [Encounter for screening mammogram for malignant neoplasm of breast] Onset: 03-29-2017 03-29-2017 Unclassified (2 sources) Gynecologic examination ; Translations: [Encounter for gynecological examination (general) (routine) without abnormal findings] Onset: 03-29-2017 03-29-2017 Past or Other Problems Problem Classification Problem Date Documented Da te Episodic/Chronic Other aftercare (1 source) Encounter for therapeutic drug level monitoring; Translations: [Encounter for therapeutic drug monitoring] Onset: 07-14-2022 Episodic Other bone disease and musculoskeletal deformities (8 sources) Osteopenia; Translations: [Other specified disorders of bone density and structure, unspecified site] Onset: 05-17-2022 Episodic Other bone disease and musculoskeletal deformities (1 source) Other specified disorders of bone density and structure, unspecified site; Translations: [Osteopenia, unspecified location] Onset: 05-17-2022 Episodic Other bone disease and musculoskeletal deformities (1 source) Other specified disorders of bone density and structure, multiple sites; Translations: [Osteopenia of multiple sites] Onset: 03-29-2022 Episodic Other lower respiratory disease (5 sources) Cough; Translations: [Post-COVID chronic cough] Onset: 09-15-2022 09-15-2022 Episodic Results Test Name Value Interpretation Reference Range Facil ity Vital Signs Date Time Vital Sign Value Performing Clinician Danni ramirez 01-19-2023 13:39-0400 Body weight 59.42 kg Corina Yoli RV MECHANIC.ASSOCIATE PRODUCT MANAGER Work Phone: [facility] 01-19-2023 13:39-0400 Diastolic blood pressure 70 mm[Hg] Corina Yoli RV MECHANIC.ASSOCIATE PRODUCT MANAGER Work Phone: [facility] 01-19-2023 13:39-0400 Heart rate 70 /min Corina Yoli RV MECHANIC.ASSOCIATE PRODUCT MANAGER Work Phone: [facility] 01-19-2023 13:39-0400 SaO2% (BldA) [Mass fraction] 98 % Corina Yoli RV MECHANIC.ASSOCIATE PRODUCT MANAGER Work Phone: [facility] 01-19-2023 13:39-0400 Systolic blood pressure 100 mm[Hg] Corina Yoli RV MECHANIC.ASSOCIATE PRODUCT MANAGER Work Phone: [facility] 05-17-2022 09:12-0500 Body weight 57.15 kg Corina Yoli RV MECHANIC.ASSOCIATE PRODUCT MANAGER Work Phone: [facility] 05-17-2022 09:12-0500 Diastolic blood pressure 76 mm[Hg] Corina Yoli RV MECHANIC.ASSOCIATE PRODUCT MANAGER Work Phone: [facility] 05-17-2022 09:12-0500 Heart rate 90 /min Corina Yoli RV MECHANIC.ASSOCIATE PRODUCT MANAGER Work Phone: [facility] 05-17-2022 09:12-0500 SaO2% (BldA) [Mass fraction] 98 % Corina Yoli RV MECHANIC.ASSOCIATE PRODUCT MANAGER Work Phone: [facility] 05-17-2022 09:12-0500 Systolic blood pressure 110 mm[Hg] Corina Yoli RV MECHANIC.ASSOCIATE PRODUCT MANAGER Work Phone: [facility] 03-29-2017 11:09-0500 BMI (Body Mass Index) 20.45 kg/m2 Tiffany Parnell NP [facility] 03-29-2017 11:09-0500 BP Diastolic 78 mm[Hg] Tiffany Parnell NP [facility] 03-29-2017 11:09-0500 BP Systolic 120 mm[Hg] Tiffany Parnell AGENT PRODUCER [facility] 03-29-2017 11:09-0500 Height 163.83 cm Tiffany Parnell AGENT PRODUCER [facility] 03-29-2017 11:09-0500 Weight 54.89 kg Tiffany Parnell AGENT PRODUCER [facility] 03-29-2017 11:090500 Weight 54.88 kg Tiffany Parnell AGENT PRODUCER [facility] Encounters Encounter Date Encounter Type Care Provider Facility Start: 02-09-2023 ambulatory Corina Hinton PRNAnishASSOCIATE PRODUCT MANAGER Work Phone: [facility] Procedures Date Procedure Procedure Detail Performing Clinician Start: 11-13-2022 US THYROID BIOPSY RI GHT (POC) SURG USE ONLY Kasey Go MD Work Phone: Start: 01-27-2022 Mammography Corina newton RV MECHANIC.ASSOCIATE PRODUCT MANAGER Work Phone: Start: 10-10-2021 Dxa bone density martha dy 1/> sites axial skel Nitza Treviño MD Work Phone: Start: 09-28-2021 Us soft tissue head & neck real time imge docm Nitza Treviño MD Work Phone: Start: 09-20-2021 Adult depression scr eening assessment Nitza Treviño MD Work Phone: Start: 09-20-2021 Lipid 1996 panel - S lesley or Plasma Corina Kent RV MECHANIC.ASSOCIATE PRODUCT MANAGER Work Phone: Plan of Treatment Date Care Activity Detail Author Start: 09-20-2026 Lipid 1996 panel - S lesley or Plasma Lipid Screening [facility] Start: 09-20-2026 LIPID SCREEN LIPID SCREEN [facility] Start: 02-07-2026 Diabetes Screening [facility] Start: 07-14-2025 DIABETES SCREEN DIABETES SCREEN [facility] Start: 07-14-2025 Diabetes Screening [facility] Start: 03-29-2025 DIABETES SCREEN DIABETES SCREEN [facility] Start: 10-05-2024 COLOGUARD (FIT-DNA) COLOGUARD (FIT-D NA) [facility] Start: 10-05-2024 COLORECTAL CANCER SCREENING COLORECTAL CANCER SCREENING [facility] Start: 09-20-2024 DIABETES SCREEN DIABETES SCREEN [facility] Start: 01-30-[address] [facility] Start: 01-20-2024 Annual PCP Team Director Of Religious Life kip Disease Visit Annual PCP Team Chronic Disease Visit [facility] Start: 12-21-2023 ANNUAL PCP TEAM OUTDOOR GUIDE KIP DISEASE VISIT ANNUAL PCP TEAM CHRONIC DISEASE VISIT [facility] Start: 11-01-2023 Urine microalbumin profile [facility] Start: 09-16-2023 ANNUAL PCP TEAM OUTDOOR GUIDE KIP DISEASE VISIT ANNUAL PCP TEAM CHRONIC DISEASE VISIT [facility] Start: 05-17-2023 ANNUAL PCP TEAM OUTDOOR GUIDE KIP DISEASE VISIT ANNUAL PCP TEAM CHRONIC DISEASE VISIT [facility] Start: 01-27-2023 Mammography [facility] Start: 01-22-2023 End: 03-24-2023 25-hydroxyvitamin D3 [Mass/volume] in Serum or Plasma VITAMIN D 25 HYDROXY Lab Routine Vitamin D deficiency Expected: 01/22/2023, Expires: 03/24/2023 [facility] Work Phone: Immunizations Immunization Date Immunization Notes Care Provider Blanco tran 01-13-2015 influenza, injectabl e, quadrivalent, preservative free Corina Yoli RV MECHANIC.ASSOCIATE PRODUCT MANAGER Work Phone: [facility] Work Phone: 01-13-2015 influenza virus vaccine, unspecified formulation Corina Yoli RV MECHANIC.ASSOCIATE PRODUCT MANAGER Work Phone: [facility] 04-08-2014 influenza, injectabl e, quadrivalent, preservative free Corina Yoli RV MECHANIC.ASSOCIATE PRODUCT MANAGER Work Phone: [facility] Work Phone: 10-31-2013 tetanus toxoid, redu maryuri diphtheria toxoid, and acellular pertussis vaccine, adsorbed Nitza Treviño MD Work Phone: [facility] Work Phone: 02-14-2013 hepatitis B vaccine, adult dosage Corina Yoli RV MECHANIC.ASSOCIATE PRODUCT MANAGER Work Phone: [facility] Work Phone: 09-18-2012 hepatitis B vaccine, adult dosage Corina Yoli RV MECHANIC.ASSOCIATE PRODUCT MANAGER Work Phone: [facility] Work Phone: 08-19-2012 hepatitis B vaccine, adult dosage Corina Yoli RV MECHANIC.ASSOCIATE PRODUCT MANAGER Work Phone: [facility] Work Phone: 05-03-2012 influenza virus vaccine, whole virus Corina Yoli RV MECHANIC.ASSOCIATE PRODUCT MANAGER Work Phone: [facility] Work Phone: 10-24-1999 poliovirus vaccine, inactivated Corina Yoli RV MECHANIC.ASSOCIATE PRODUCT MANAGER Work Phone: [facility] Work Phone: Payers Date Payer Category Payer Medicare UHC AARP MEDICAR E [facility] AARP MEDICARE HMO [id number] 2022-Present [phone] [address] [address] [place] [address] HMO [id number] 2022 Medicare [id number] 2018 Unknown MMO MMO [employer] [id number] 2018-Present [phone] [address] [place] [address] O [id number] 2018 Unknown [id number] 2018 Unknown [id number] Social History Date Type Detail Facility Start: 09-20-2021 End: 05-17-2022 Tobacco smoking status NHIS Never smoked tobacco [facility] Start: 09-20-2021 End: 01-19-2023 Alcohol intake Current non-drinker of alcohol (finding) [facility] Start: 09-17-2021 End: 05-10-2022 History SDOH Alcohol Frequency 1 [facility] Start: 09-17-2021 End: 05-10-2022 History SDOH Social Connections Phone 5 [facility] Start: 09-17-2021 End: 05-10-2022 History SDOH Social Connections Buddhism 3 [facility] Start: 09-17-2021 End: 05-10-2022 History SDOH Social Connections Living 7 [facility] Start: 09-17-2021 End: 05-10-2022 History SDOH Stress 2 [facility] Start: 1955 Sex Assigned At Female C [facility] Start: 09-10-2021 End: 09-20-2021 Exposure to SARS-CoV-2 (event) Not sure [facility] Start: 09-20-2021 End: 05-17-2022 Tobacco use and exposure Smokeless tobacco non-user [facility] Start: 05-10-2022 History SDOH Alcohol Std Drinks 0 [facility] Start: 05-10-2022 End: 09-15-2022 History of Social function [facility] Start: 05-10-2022 End: 09-15-2022 Social connection and isolation panel [facility] Do you belong to any clubs or organizations such as buddhism groups, unions, fraternal or athletic groups, or school groups? Yes [facility] Are you now , , , , never or living with a partner? Never [facility] Frequency of Alcohol Consumption Not on file [facility] How often do you hav e 6 or more drinks on 1 occasion? Never [facility] Do you feel stress - tense, restless, nervous, or anxious, or unable to sleep at night because your mind is troubled all the time - these days [OSQ] Only a little [facility] (I/We) worried wheth er (my/our) food would run out before (I/we) got money to buy more. Never true [facility] In the past 12 month s, was there a time when you were not able to pay the mortgage or rent on time? No [facility] Start: 09-17-2021 Gender identity Identifies as female gender (finding) [facility] Start: 09-17-2021 Sexual orientation Heterosexual (sb hawley) [facility] Clinical Notes 10-10-2021 to 01-19-2023 Corina Kent APRN.ASSOCIATE PRODUCT MANAGER - 01/19/2023 1:42 PM EDTTelephone Encounter - Kimberlee Baker RN - 12/20/2022 8:25 AM EDTPatient Dottie Birmingham LPN - 11/13/2022 8:41 AM EDT Note Date & Type Note Facility 01-19-2023 Note HNO ID: [id number] Author: Corina Kent APRN.ROBERT Service: ? Author Type: Nurse Practitioner Type: Progress Notes Filed: 01/19/2023 2:47 PM Note Text: SUBJECTIVE Una Castro is a 67 year old female here today for a check up on her medical problems. Chief Complaint Patient presents with: 4 month follow up: would like to cut back on appointments. Is interested in confirming dx of jan. HPI Una Castro is a 67 year old female established patient. Here for a 4 month follow up. Would like labs for her thyroid. Would like antibodies for jan's checked. Overall doing well. Continues to take vitamin d as tolerated. Her medications were reviewed today and her list is now up to date. Medications Current Outpatient Medications Medication Sig Valtrex 500 mg Oral 1.0 tablet Oral PRN (Patient not taking: Reported on 11/03/2022) No current facility-administered medications for this visit. 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 Respiratory: Negative. Cardiovascular: Negative. OBJECTIVE BP 100/70 Pulse 70 Wt 131 lb (59.4kg) SpO2 98% Physical Exam Vitals and nursing note reviewed. Constitutional: General: She is awake. She is not in acute distress. Appearance: Normal appearance. She is well-developed and well-groomed. She is not ill-appearing, toxic-appearing or diaphoretic. HENT: Head: Normocephalic. Right Ear: External ear normal. Left Ear: External ear normal. Nose: Nose normal. Eyes: General: Vision grossly intact. Conjunctiva/sclera: Conjunctivae normal. Pupils: Pupils are equal, round, and reactive to light. Neck: Vascular: No JVD. Trachea: Trachea normal. Cardiovascular: Rate and Rhythm: Normal rate and regular rhythm. Pulses: Normal pulses. Heart sounds: Normal heart sounds. No murmur heard. Pulmonary: Effort: Pulmonary effort is normal. No accessory muscle usage, prolonged expiration or respiratory distress. Breath sounds: Normal breath sounds. Musculoskeletal: Cervical back: Neck supple. Skin: General: Skin is warm and dry. Capillary Refill: Capillary refill takes less than 2 seconds. Neurological: General: No focal deficit present. Mental Status: She is alert and oriented to person, place, and time. Mental status is at baseline. Psychiatric: Attention and Perception: Attention and perception normal. Mood and Affect: Mood and affect normal. Speech: Speech normal. Behavior: Behavior normal. Behavior is cooperative. Thought Content: Thought content normal. Cognition and Memory: Cognition and memory normal. Judgment: Judgment normal. ASSESSMENT/PLAN: 1. 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 Thyroid nodule - ICD9: 241.0, ICD10: E04.1 - THYROID PEROXIDASE ANTIBODY BLOOD - TSH BLD - T3 FREE BLD - T4 FREE/FREE THYROX 3. Vitamin D deficiency - ICD9: 268.9, ICD10: E55.9 stable - VITAMIN D 25 HYDROXY 4. Encounter for therapeutic drug monitoring - ICD9: V58.83, ICD10: Z51.81 - THYROID PEROXIDASE ANTIBODY BLOOD - TSH BLD - T3 FREE BLD - T4 FREE/FREE THYROX - CBC + DIFF - COMP METABOLIC PANEL Portions of this note have been entered by ancillary staff. I have reviewed and when necessary edited, so that they are an adequate record of my encounter with this patient Please note that parts of this document were created using voice recognition software and therefore may contain grammatical errors. Patient verbalizes understanding of instructions from today's visit and in agreement with treatment plan. Questions answered. Agrees to call the office if questions, concerns of issues with acute symptoms not improving or if they worsen. See diagnoses and orders for additional plan(s). Allergies and medications were reviewed, list was updated, and refills given if needed. Past medical, surgical, social, and family history reviewed and updated as appropriate. Encouraged proper diet AND exercise as well as compliance with taking medications. Age-appropriate health preventative measures were discussed. Return in about 1 year (around 01/20/2024) for Wellness physical.. Corina Kent APRN-ROBERT [facility] 01-19-2023 History of Presen t illness Narrative SUBJECTIVE Una Castro is a 67 year old female here today for a check up on her medical problems. Chief Complaint Patient presents with: 4 month follow up: would like to cut back on appointments. Is interested in confirming dx of jan. HPI Una Castro is a 67 year old female established patient. Here for a 4 month follow up. Would like labs for her thyroid. Would like antibodies for jan's checked. Overall doing well. Continues to take vitamin d as tolerated. Her medications were reviewed today and her list is now up to date. Medications Current Outpatient Medications Medication Sig Valtrex 500 mg Oral 1.0 tablet Oral PRN (Patient not taking: Reported on 11/03/2022) No current facility-administered medications for this visit. 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 Respiratory: Negative. Cardiovascular: Negative. OBJECTIVE BP 100/70 Pulse 70 Wt 131 lb (59.4kg) SpO2 98% Physical Exam Vitals and nursing note reviewed. Constitutional: General: She is awake. She is not in acute distress. Appearance: Normal appearance. She is well-developed and well-groomed. She is not ill-appearing, toxic-appearing or diaphoretic. HENT: Head: Normocephalic. Right Ear: External ear normal. Left Ear: External ear normal. Nose: Nose normal. Eyes: General: Vision grossly intact. Conjunctiva/sclera: Conjunctivae normal. Pupils: Pupils are equal, round, and reactive to light. Neck: Vascular: No JVD. Trachea: Trachea normal. Cardiovascular: Rate and Rhythm: Normal rate and regular rhythm. Pulses: Normal pulses. Heart sounds: Normal heart sounds. No murmur heard. Pulmonary: Effort: Pulmonary effort is normal. No accessory muscle usage, prolonged expiration or respiratory distress. Breath sounds: Normal breath sounds. Musculoskeletal: Cervical back: Neck supple. Skin: General: Skin is warm and dry. Capillary Refill: Capillary refill takes less than 2 seconds. Neurological: General: No focal deficit present. Mental Status: She is alert and oriented to person, place, and time. Mental status is at baseline. Psychiatric: Attention and Perception: Attention and perception normal. Mood and Affect: Mood and affect normal. Speech: Speech normal. Behavior: Behavior normal. Behavior is cooperative. Thought Content: Thought content normal. Cognition and Memory: Cognition and memory normal. Judgment: Judgment normal. ASSESSMENT/PLAN: 1. 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 Thyroid nodule - ICD9: 241.0, ICD10: E04.1 - THYROID PEROXIDASE ANTIBODY BLOOD - TSH BLD - T3 FREE BLD - T4 FREE/FREE THYROX 3. Vitamin D deficiency - ICD9: 268.9, ICD10: E55.9 stable - VITAMIN D 25 HYDROXY 4. Encounter for therapeutic drug monitoring - ICD9: V58.83, ICD10: Z51.81 - THYROID PEROXIDASE ANTIBODY BLOOD - TSH BLD - T3 FREE BLD - T4 FREE/FREE THYROX - CBC + DIFF - COMP METABOLIC PANEL Portions of this note have been entered by ancillary staff. I have reviewed and when necessary edited, so that they are an adequate record of my encounter with this patient Please note that parts of this document were created using voice recognition software and therefore may contain grammatical errors. Patient verbalizes understanding of instructions from today's visit and in agreement with treatment plan. Questions answered. Agrees to call the office if questions, concerns of issues with acute symptoms not improving or if they worsen. See diagnoses and orders for additional plan(s). Allergies and medications were reviewed, list was updated, and refills given if needed. Past medical, surgical, social, and family history reviewed and updated as appropriate. Encouraged proper diet & exercise as well as compliance with taking medications. Age-appropriate health preventative measures were discussed. Return in about 1 year (around 01/20/2024) for Wellness physical.. Corina Kent APRN-ROBERT documented in this encounter [facility] 12-20-2022 Note HNO ID: [id number] Author: Corina Kent APRN.CNP Service: ? Author Type: Nurse Practitioner Type: Progress Notes Filed: 12/20/2022 12:37 PM Note Text: SUBJECTIVE Una Castro is a 67 year old female here today for acute concern. Chief Complaint Patient presents with: Trauma: insect bite is itchy and swollen HPI Una Castro is a 67 year old female. She presents acutely for concerns of a rash to the right arm. Concerned of redness to the area. Looks and feels like a bug bite. Did not see a tick attached. Onset was yesterday. It has been constant. It itches. Feels swollen. Her medications were reviewed today and her list is now up to date. Medications Current Outpatient Medications Medication Sig doxycycline (VIBRA-TABS) 100 mg tablet Take 1 tablet by mouth twice daily for 7 days. Valtrex 500 mg Oral 1.0 tablet Oral PRN (Patient not taking: Reported on 11/03/2022) No current facility-administered medications for this visit. 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 Skin: Positive for rash. OBJECTIVE BP 116/82 Pulse 82 Wt 129 lb (58.5kg) SpO2 97% Physical Exam Vitals and nursing note reviewed. Constitutional: General: She is awake. She is not in acute distress. Appearance: Normal appearance. She is well-developed and well-groomed. She is not ill-appearing, toxic-appearing or diaphoretic. HENT: Head: Normocephalic. Right Ear: External ear normal. Left Ear: External ear normal. Nose: Nose normal. Eyes: General: Vision grossly intact. Conjunctiva/sclera: Conjunctivae normal. Pupils: Pupils are equal, round, and reactive to light. Neck: Vascular: No JVD. Trachea: Trachea normal. Cardiovascular: Pulses: Normal pulses. Pulmonary: Effort: Pulmonary effort is normal. No accessory muscle usage, prolonged expiration or respiratory distress. Musculoskeletal: Cervical back: Neck supple. Skin: General: Skin is warm and dry. Capillary Refill: Capillary refill takes less than 2 seconds. Neurological: General: No focal deficit present. Mental Status: She is alert and oriented to person, place, and time. Mental status is at baseline. Psychiatric: Attention and Perception: Attention and perception normal. Mood and Affect: Mood and affect normal. Speech: Speech normal. Behavior: Behavior normal. Behavior is cooperative. Thought Content: Thought content normal. Cognition and Memory: Cognition and memory normal. Judgment: Judgment normal. ASSESSMENT/PLAN: 1. Cellulitis of right upper extremity - ICD9: 682.3, ICD10: L03.113 (primary diagnosis) - Begin treatment with doxy to help cover for any possible Lyme disease thought low likelihood given short duration of exposure if any - No lymphangetic streaking, this was defined for patient to watch for and to seek medical care immediately if appears - Area of cellulitis defined, seek further attention if this area continues to enlarge - DOXYCYCLINE HYCLATE 100 MG TABLET 2. Insect bite, unspecified site, initial encounter - ICD9: 919.4, E906.4, ICD10: W57.XXXA See #1, discussed care of the area. 3. 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 - ICD9: 244.8, 245.2, ICD10: E03.8, E06.3 Discussed prior testing, questioning if this is a true jan's versus just a hypothyroid I spent a total of 31 minutes on the date of the service which included preparing to see the patient, [id number] patient care, completing clinical documentation, obtaining and/or reviewing separately obtained history, performing a medically appropriate examination, counseling and educating the patient/family/caregiver, ordering medications, tests, or procedures, communicating with other HCPs (not separately reported), independently interpreting results (not separately reported), communicating results to the patient/family/caregiver, and care coordination (not separately reported). Portions of this note have been entered by ancillary staff. I have reviewed and when necessary edited, so that they are an adequate record of my encounter with this patient Please note that parts of this document were created using voice recognition software and therefore may contain grammatical errors. Patient verbalizes understanding of instructions from today's visit and in agreement with treatment (more content not included)... [facility] 12-20-2022 Miscellaneous Notes Patient calls for bullseye rash to right arm. Nurse triage completed. Protocol recommends see provider within 24 hours. Appointment scheduled. Care advice reviewed. Patient verbalizes understanding. Reason for Disposition Tick bite(s) Red ring or bull's-eye rash occurs at tick bite Answer Assessment - Initial Assessment Questions 1. TYPE of INSECT: Patient not certain. 2. ONSET: Patient not certain. First noticed yesterday morning when woke up. 3. LOCATION: Right arm. 4. REDNESS: Is the area red or pink? If Yes, ask: What size is area of redness? (inches or cm). When did the redness start? White center surrounded by dark red chipewwa that is inflamed. Patient reports yesterday the area was about 2 inches in size. Today the area is about the size of a quarter. 5. PAIN: 5 6. ITCHING: - MODERATE-SEVERE: interferes with work, school, sleep, or other activities Hydrocortisone cream makes the itch worse. Soap and water seems to make it better. 7. SWELLING: About the size of a quarter today. Yesterday about double that size. 8. OTHER SYMPTOMS: No difficulty breathing. No hives. Answer Assessment - Initial Assessment Questions 1. TYPE of TICK: Unsure. Patient didn't see a tick. Patient thinks it could have been a tick bite as she was outside weeding flower beds the day before she noticed the bite. Patient is basing it on what the skin looks like. Bullseye appearance. 2. SIZE of TICK: Patient not certain. 3. ENGORGED: Patient not certain. 4. LOCATION:Right arm 5. ONSET: Weeding flower beds. Woke up yesterday morning with bullseye bite wero to right arm. 6. APPEARANCE of BITE or RASH: Bullseye rash to right arm. Protocols used: Insect [id number], Tick [id number] documented in this encounter [facility] 11-20-2022 Note HNO ID: [id number] Author: Kasey Go MD Service: ? Author Type: Physician Type: Progress Notes Filed: 11/20/2022 8:07 AM Note Text: VIRTUAL VISIT FOLLOW UP I have communicated my name and active licensure. The patient's identity and physical location were verified at the time of this visit. Either the patient or their legal phone representative has been informed of the risks and benefits of -- and alternatives to -- treatment through a remote evaluation and consents to proceed with the evaluation remotely. UPDATED HISTORY: I had a virtual visit with Ms. Castro today for follow up of US guided right (superior) thyroid FNA done on 11/13/2022. She notes no problems from the biopsy. Pathology reveals benign follicular/colloid nodule . PAST MEDICAL HISTORY Diagnosis Date 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 Hyperlipidemia Migraine-cluster headache syndrome Started in 1977 Raynaud's disease without gangrene PAST SURGICAL HISTORY Procedure Laterality Date CATARACT EXTRACTION HX Bilateral FOOT SURGERY HX for Lou's neuroma HERNIA REPAIR HX RHINOPLASTY Current Outpatient Medications Medication Sig Dispense Refill Valtrex 500 mg Oral 1.0 tablet Oral PRN (Patient not taking: Reported on 11/03/2022) 1.0 tablet 0 No current facility-administered medications for this visit. ALLERGIES Allergen Reactions Erythromyocin [Othe* GI Upset Vomiting, led to hospitalization Anti-Inflammatory [* Claririn [Other] Decongestants [Othe* Dog [Other] Dust [Other] Grasses [Other] Milk [Other] Mold [Other] REVIEW OF SYSTEMS: PAIN ASSESSMENT: Negative for pain, history of chronic pain, or current treatment for a chronic pain condition. PHYSICAL FINDINGS OF NOTE: General - Normal, healthy, cooperative, in no acute distress Able to interact verbally by video conference Psych - ORIENTATION: normal to time place, person and situation Mood/Affect: AFFECT AND MOOD: Normal Head/Neuro - Normal size and shape Facial appearance normal Pulmonary - respiratory effort normal Cardiovascular - patient describes extremities normal, warm, no cyanosis,no clubbing, and no edema Abdominal - Not performed Skin - abnormal lesions not visualized Motor - patient seen sitting with Normal appearing strength and coordination Anorectal exam - Not Performed IMPRESSION Benign right thyroid nodule RECOMMENDATION: I have reassured patient that there is no clinical evidence of thyroid malignancy. I have recommended follow up US thyroid in one year and she can follow up with her PCP for this. I have answered her questions and she has no further questions. Patient encouraged to return to clinic if any worsening signs/symptoms. Patient acknowledges the above. I spent more than 5 minutes [id number] with the patient and over half the time was devoted to counseling and/or coordination of care. Kasey Go MD [facility] 11-13-2022 Note HNO ID: [id number] Author: Dottie Benton LPN Service: ? Author Type: LICENSED NURSE Type: Progress Notes Filed: 11/14/2022 8:30 AM Note Text: UNIVERSAL PROTOCOL / SAFETY CHECKLIST Procedure to be Performed: US guided FNA right thyroid nodule biopsy Sign In: A Moment of CARE was completed. Personnel directly involved with the procedure wore the appropriate PPE (Personal Protective Equipment). Patient/Surrogate Stated/Verified: PATIENT VERIFIED(optional for EMERGENT procedures): Patient name, Date of , Relevant allergies, and The intended procedure Time Out Communication: Intended patient and procedure match the source documents. Consent documented and matches the intended procedure. Relevant labs, photos, and/or imaging studies have been reviewed. Medications required for procedure verified. No fire risk assessment and interventions applicable. No implant(s) inserted. Sign Out: SIGN OUT (optional for EMERGENT procedures): All specimen containers correctly labeled. No instruments, equipment or retained foreign bodies applicable. Dottie Benton LPN [facility] 11-13-2022 Note HNO ID: [id number] Author: Kasey Go MD Service: ? Author Type: Physician Type: Progress Notes Filed: 11/14/2022 8:30 AM Note Text: Una presents for US guided FNA of right thyroid nodule. PROCEDURE NOTE: After informed consent was given and patient gives permission for the procedure, the patient was in the supine position with neck in slight extension. Appropriate time out protocol was followed. The ultrasound machine was used for real time imaging. The anterior neck skin was cleansed with a sterile surgical skin preparation. The skin and subcutaneous tissues were infiltrated with 1% xylocaine with epinephrine. The ultrasound transducer probe was brought up to localize the thyroid nodules. The right thyroid nodule was identified using the US transducer. It was about mid level. A 22 G needle attached to a 10 cc syringe was inserted into the nodule under US guidance. Several passes were made to ensure obtaining enough material. The needle was withdrawn. Smear slides were made and also the specimen was placed in a formalin solution and forwarded to pathology. The above was repeated with a new 22 G needle attached to a 10 cc syringe. This was done to ensure adequate sampling. This process was again repeated until adequate sampling was deemed to be achieved. The specimens were then forwarded to pathology. Hemostasis was achieved by pressure. A small bandaid was applied and patient told that she could remove it tomorrow. No evidence of bleeding noted. Patient tolerated procedure well. Complications - none EBL - minimal PLAN: Patient is scheduled for televisit for discussion of above results. Post procedure care instructions given by clinic staff. Patient acknowledges above. [facility] 11-13-2022 Instructions Dottie Benton LPN - 11/13/2022 9:07 AM EDT The following instructions are important for you related to your office visit today with the [facility] General Surgeons. Instructions After THYROID FINE NEEDLE ASPIRATION Please do not take aspirin or other blood thinners for the next few days. If you have bleeding from the needle site, hold pressure with a clean gauze. If the bleeding continues, contact our office immediately. I recommend taking Advil or Tylenol for the discomfort. An ice pack may improve your discomfort to the area. Contact our office immediately if you have any questions or concerns @ [phone]. Please make an appointment to follow up in one week with your physician and [facility] If you note any additional difficulties, questions, or concerns, you should contact our office immediately @ [phone] and ask to be transferred to the General Surgery department. documented in this encounter [facility] 11-13-2022 History of Presen t illness Narrative UNIVERSAL PROTOCOL / SAFETY CHECKLIST Procedure to be Performed: US guided FNA right thyroid nodule biopsy Sign In: A Moment of CARE was completed. Personnel directly involved with the procedure wore the appropriate PPE (Personal Protective Equipment). Patient/Surrogate Stated/Verified: PATIENT VERIFIED(optional for EMERGENT procedures): Patient name, Date of , Relevant allergies, and The intended procedure Time Out Communication: Intended patient and procedure match the source documents. Consent documented and matches the intended procedure. Relevant labs, photos, and/or imaging studies have been reviewed. Medications required for procedure verified. No fire risk assessment and interventions applicable. No implant(s) inserted. Sign Out: SIGN OUT (optional for EMERGENT procedures): All specimen containers correctly labeled. No instruments, equipment or retained foreign bodies applicable. Dottie Benton LPN Una presents for US guided FNA of right thyroid nodule. PROCEDURE NOTE: After informed consent was given and patient gives permission for the procedure, the patient was in the supine position with neck in slight extension. Appropriate time out protocol was followed. The ultrasound machine was used for real time imaging. The anterior neck skin was cleansed with a sterile surgical skin preparation. The skin and subcutaneous tissues were infiltrated with 1% xylocaine with epinephrine. The ultrasound transducer probe was brought up to localize the thyroid nodules. The right thyroid nodule was identified using the US transducer. It was about mid level. A 22 G needle attached to a 10 cc syringe was inserted into the nodule under US guidance. Several passes were made to ensure obtaining enough material. The needle was withdrawn. Smear slides were made and also the specimen was placed in a formalin solution and forwarded to pathology. The above was repeated with a new 22 G needle attached to a 10 cc syringe. This was done to ensure adequate sampling. This process was again repeated until adequate sampling was deemed to be achieved. The specimens were then forwarded to pathology. Hemostasis was achieved by pressure. A small bandaid was applied and patient told that she could remove it tomorrow. No evidence of bleeding noted. Patient tolerated procedure well. Complications - none EBL - minimal PLAN: Patient is scheduled for televisit for discussion of above results. Post procedure care instructions given by clinic staff. Patient acknowledges above. documented in this encounter [facility] 11-03-2022 Note HNO ID: [id number] Author: Kasey Go MD Service: ? Author Type: Physician Type: Progress Notes Filed: 11/06/2022 7:18 AM Note Text: Una Castro 1955 REFERRING PHYSICIAN: Corina Kent APRN.ASSOCIATE PRODUCT MANAGER CHIEF COMPLAINT: Consult (Thyroid nodule) HPI: The patient is a 66 year old female presents with abnormal ultrasound of thyroid. She complains of occasional anterior neck ache . She also notes occasional swallowing difficulties in this area. She also complains of fatigue. She has had abnormal thyroid function tests and thus ultrasound was obtained; she has been diagnosed with 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 in the past. She denies unusual exposure to radiation therapy. She denies taking thyroid hormones - she doesn't tolerate them. She notes no thyroid cancer in her family. She denies cigarettes use. US 10/10/2022 - reveals a right superior thyroid nodule at 1.5 cm for which FNA is recommended by the radiologist. PAST MEDICAL HISTORY Diagnosis Date 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 Hyperlipidemia Migraine-cluster headache syndrome Started in 1977 Raynaud's disease without gangrene PAST SURGICAL HISTORY Procedure Laterality Date CATARACT EXTRACTION HX Bilateral FOOT SURGERY HX for Lou's neuroma HERNIA REPAIR HX RHINOPLASTY Current Outpatient Medications Medication Sig Valtrex 500 mg Oral 1.0 tablet Oral PRN (Patient not taking: Reported on 11/03/2022) No current facility-administered medications for this visit. ALLERGIES: Erythromyocin [Other], Anti-Inflammatory [Other], Claririn [Other], Decongestants [Other], Dog [Other], Dust [Other], Grasses [Other], Milk [Other], and Mold [Other] PERSONAL HISTORY: Social History Tobacco Use Smoking status: Never Smokeless tobacco: Never Vaping Use Vaping Use: Never used Substance Use Topics Alcohol use: No Drug use: No FAMILY HISTORY Problem Relation Age of Onset Alzheimer's Disease Mother Ischemic Heart Disease Father Breast Cancer Sister The review of systems data was entered by the nurse and reviewed by ct Nursing Notes: Corina Figueredo RN 11/03/2022 3:03 PM Signed REVIEW OF SYSTEMS: General: The patient NOTES fatigue, denies weight loss, NOTES weight gain, denies feeling hot, and NOTES feelings of cold. Eyes: The patient denies glaucoma, NOTES eye injury/surgery, wears glasses or contacts. Ear/Nose/Throat: The patient NOTES allergies, NOTES hayfever, denies ear infections, and denies bloody noses. Cardiovascular: The patient denies chest pain, denies heart disease, denies high blood pressure,denies cardiac stent, denies prior heart attack, denies irregular heart beat, denies high cholesterol, NOTES poor circulation, denies heart failure, other cardiac issues, denies claudication, NOTES cold feet, denies peripheral arterial stent. Respiratory: The patient denies tuberculosis, denies pneumonia, denies frequent cough, denies pulmonary embolism, denies shortness of breath, and denies coughing up blood. Gastrointestinal: The patient NOTES difficulty swallowing, denies acid reflux, denies ulcers, denies vomiting, denies jaundice/hepatitis, denies gallbladder problems, denies black or tarry stools, denies hemorrhoids, denies bleeding from rectum, denies diverticulitis, denies constipation, denies diarrhea, denies loss of stool control, and denies hernias. Kidney/Bladder: The patient denies kidney stones, denies urine infections, and denies bloody urine. Skin: The patient denies a history of skin cancer, denies bleeding/changing moles, and denies a history of skin rash. Neurologic: The patient denies a history of epilepsy/convulsions, NOTES headaches, denies head/spinal injuries, and denies stroke/TIA. Psychiatric: The patient denies psychiatric medications, denies depression, and denies voices, denies substance abuse. Endocrine: The patient NOTES thyroid disorders, denies diabetes, and denies hormonal problems. Hematologic: The patient denies a history of bruising, denies bleeding, and denies anemia, denies blood clots. Infections: The patient NOTES a history of measles and mumps, denies rheumatic fever, and denies sexually transmitted diseases. Musculoskeletal: The patient denies back pain/injury, denies back problems, denies sciatica, denies knee/foot trouble, denies arthritis, or denies gout. When was patient's last Mammogram screening? 2021 Last Colonoscopy: 10 + years Corina Figueredo RN PHYSICAL EXAMINATION: General: The patient is 66 year old female, well nourished, well hydrated in no acute distress. The patient is oriented to time, place, and person. VITALS: Blood pressure 124/88, pulse 95, temperature 36.4 ?C (97.6 ?F), height 162.6 cm (5' 4 ), weight 59.7 kg (131 lb 9.6 oz), SpO2 95 %. Body mass index is 22.59 kg/m?. Head - Normocephalic. EOM intact with sclera clear and no icterus noted. Mouth with mucus membranes moist. Neck - supple with no jugu (more content not included)... [facility] 10-17-2022 Miscellaneous Notes PATIENT NOTIFIED OF SAME. Call transferred to [facility] to scheduled consult. Please let patient know that recent ultrasound of the thyroid showed a nodule that had slightly increased in size, radiology does recommend a fine needle aspiration of this. I placed a referral for general surgery to see them to discuss this further. documented in this encounter [facility] 10-10-2022 Note HNO ID: [id number] Author: Shweta Vazquez RDMS Service: ? Author Type: Food And Nutrition Services Assistant Type: Progress Notes Filed: 10/10/2022 7:50 AM Note Text: Radiology Service Progress Note PATIENT NAME: Una Castro DATE OF SERVICE: October 10, 2022 TIME: 7:49 AM PATIENT IDENTITY VERIFICATION COMPLETED USING TWO (2) IDENTIFIERS: Name and Date of confirmed by patient verbally. FALL SCREENING: Has the patient had 2 falls in the last year or 1 fall with injury or currently using an Ambulatory Assistive Device (Walker, Cane, Wheelchair, Crutches, etc.)? No PATIENT GENDER DATA: Female. status: : No status: NO. PATIENT RELEVANT IMPLANT DATA REVIEWED: Not Applicable RADIOLOGY DEPARTMENT: Ultrasound PERIPHERAL IV DATA: Not applicable SIGNED BY: Shweta Vazquez RDMS RVT October 10, 2022 7:49 AM [facility] 09-15-2022 Note HNO ID: [id number] Author: Corina Kent APRN.CNP Service: ? Author Type: Nurse Practitioner Type: Progress Notes Filed: 09/15/2022 4:40 PM Note Text: SUBJECTIVE Una Castro is a 66 year old female here today for a check up on her medical problems. Chief Complaint Patient presents with: Recheck HPI Una Castro is a 66 year old female who presents today for 4 month follow up. She was seen 05/17/2022, discussed osteopenia, hypothyroidism and thyroid nodules, vitamin d def. She has been trying to supplement her vitamin D with [employer]. [place] brand vitamin D caused a headache, D3 400 international unit(s) still caused issues. Taking vitamin D3 2000 units once a week right now and tolerating. Vitamin d up from 17.2 to 26.1. Tried a probiotic. Caused loose stools. TSH up to 11, issues with synthroid in the past. Covid the end of March, since issues with cold air or breathing hard has a wheeze and cough. Not sleeping well. Sleeping about 4 hours, on going over the last 1-2 years. Feeling tired during the day. Has two pets that share a room with her. Living with sister with terminal cancer. Tries to go to bed when feels sleepy. Goes to bed after midnight. Her medications were reviewed today and her list is now up to date. Medications Current Outpatient Medications Medication Sig Valtrex 500 mg Oral 1.0 tablet Oral PRN No current facility-administered medications for this visit. 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 Respiratory: Positive for cough (with cold air). Cardiovascular: Negative. Psychiatric/Behavioral: Positive for sleep disturbance. OBJECTIVE BP 120/80 Pulse 66 Wt 130 lb (59.0kg) Physical Exam Vitals and nursing note reviewed. Constitutional: General: She is awake. She is not in acute distress. Appearance: Normal appearance. She is well-developed and well-groomed. She is not ill-appearing, toxic-appearing or diaphoretic. HENT: Head: Normocephalic. Right Ear: External ear normal. Left Ear: External ear normal. Nose: Nose normal. Eyes: General: Vision grossly intact. Conjunctiva/sclera: Conjunctivae normal. Pupils: Pupils are equal, round, and reactive to light. Neck: Vascular: No JVD. Trachea: Trachea normal. Cardiovascular: Rate and Rhythm: Normal rate and regular rhythm. Pulses: Normal pulses. Heart sounds: Normal heart sounds. No murmur heard. Pulmonary: Effort: Pulmonary effort is normal. No accessory muscle usage, prolonged expiration or respiratory distress. Breath sounds: Normal breath sounds. Musculoskeletal: Cervical back: Neck supple. Skin: General: Skin is warm and dry. Capillary Refill: Capillary refill takes less than 2 seconds. Neurological: General: No focal deficit present. Mental Status: She is alert and oriented to person, place, and time. Mental status is at baseline. Psychiatric: Attention and Perception: Attention and perception normal. Mood and Affect: Mood and affect normal. Speech: Speech normal. Behavior: Behavior normal. Behavior is cooperative. Thought Content: Thought content normal. Cognition and Memory: Cognition and memory normal. Judgment: Judgment normal. ASSESSMENT/PLAN: 1. 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 - US THYROID/PARATHYROID - TSH BLD - T3 FREE BLD - T4 FREE/FREE THYROX 2. Thyroid nodule - ICD9: 241.0, ICD10: E04.1 - US THYROID/PARATHYROID 3. Vitamin D deficiency - ICD9: 268.9, ICD10: E55.9 - VITAMIN D 25 HYDROXY 4. Dyspepsia - ICD9: 536.8, ICD10: R10.13 Probiotics not helpful. 5. 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 Other insomnia - ICD9: 780.52, ICD10: G47.09 Discussed regular bed time routine, use of a very low dose of melatonin or trying sleepy time tea 7. Encounter for therapeutic drug monitoring - ICD9: V58.83, ICD10: Z51.81 - BASIC METABOLIC PNL I spent a total of 35 minutes on the date of the service which included preparing to see the patient, [id number] patient care, completing clinical documentation, obtaining and/or reviewing separately obtained hi (more content not included)... [facility] 05-17-2022 Miscellaneous Notes Found correct order. Please review and advise. Can we please call [employer] and let them know [employer] does not have that option but I put comments with the order that they can substitute. Thanks! Ed Grider reports the cholecalciferol 400 unit/ 5 ml- is not available. Reports it should read 400 unit / 1 ml. documented in this encounter [facility] 05-17-2022 Note HNO ID: [id number] Author: Corina Kent APRN.ROBERT Service: ? Author Type: Nurse Practitioner Type: Progress Notes Filed: 05/17/2022 12:22 PM Note Text: SUBJECTIVE Una Castro is a 66 year old female here today for a check up on her medical problems. Chief Complaint Patient presents with: Results: discuss lab results Gas: bloating and distention in bowels treats with mk and lactaid. Questions lactose intolerance. denies constipation or diarrhea. denies any GERD or heartburn. Throat Problem: has a constant achy throat and Dr. Treviño states that she has odynophagia Covid Positive: on 05/03/22 symptoms started on 04/29/22 HPI Una Castro is a 66 year old female established patient of Dr. Treviño who presents today for follow up. She did recently have COVID. Still some fatigue/tiredness in the morning. Tested positive the beginning of the month. Cough here and there. Slowly improving. She would like to go over her recent labs and bone density results. Bone density shows osteopenia. Labs show stable thyroid functioning, low vitamin d level. She does not currently take a vitamin d supplement due to having issues with her stomach bothering her when she takes oral medications. Tried lactaid and mk this am, feeling okay with this. Thinking of trying bone broth. Has not tried probiotics. She is also wondering about when she should repeat her next thyroid ultrasound due to nodules noted. Her medications were reviewed today and her list is now up to date. Medications Current Outpatient Medications Medication Sig Valtrex 500 mg Oral 1.0 tablet Oral PRN cholecalciferol, vitamin D3, 10 mcg/5 mL (400 unit/5 mL) liqd Take 15 mL by mouth once daily. No current facility-administered medications for this visit. ALLERGIES Allergen Reactions Erythromyocin [Othe* GI Upset Vomiting, led to hospitalization ?Asa [Other] Anti-Inflammatory [* Calcium Maddy Bloc* Claririn [Other] Decongestants [Othe* Dog [Other] Dust [Other] Grasses [Other] Milk [Other] Mold [Other] ACTIVE PROBLEM LIST Osteopenia - 05/17/2022 Hypothyroidism Due to Jan's Thyroiditis - 05/17/2022 Thyroid Nodule - 05/17/2022 Raynaud's Disease - 09/20/2021 Social History Tobacco Use Smoking status: Never Smokeless tobacco: Never Substance Use Topics Alcohol use: No Drug use: No Review of Systems Cardiovascular: Negative. Gastrointestinal: Positive for nausea. Negative for constipation, diarrhea and vomiting. OBJECTIVE BP 110/76 Pulse 90 Wt 126 lb (57.2kg) SpO2 98% Physical Exam Vitals and nursing note reviewed. Constitutional: General: She is awake. She is not in acute distress. Appearance: Normal appearance. She is well-developed and well-groomed. She is not ill-appearing, toxic-appearing or diaphoretic. HENT: Head: Normocephalic. Right Ear: External ear normal. Left Ear: External ear normal. Nose: Nose normal. Eyes: General: Vision grossly intact. Conjunctiva/sclera: Conjunctivae normal. Pupils: Pupils are equal, round, and reactive to light. Neck: Vascular: No JVD. Trachea: Trachea normal. Cardiovascular: Rate and Rhythm: Normal rate and regular rhythm. Pulses: Normal pulses. Heart sounds: Normal heart sounds. No murmur heard. Pulmonary: Effort: Pulmonary effort is normal. No accessory muscle usage, prolonged expiration or respiratory distress. Breath sounds: Normal breath sounds. Musculoskeletal: Cervical back: Neck supple. Skin: General: Skin is warm and dry. Capillary Refill: Capillary refill takes less than 2 seconds. Neurological: General: No focal deficit present. Mental Status: She is alert and oriented to person, place, and time. Mental status is at baseline. Psychiatric: Attention and Perception: Attention and perception normal. Mood and Affect: Mood and affect normal. Speech: Speech normal. Behavior: Behavior normal. Behavior is cooperative. Thought Content: Thought content normal. Cognition and Memory: Cognition and memory normal. Judgment: Judgment normal. ASSESSMENT/PLAN: 1. Osteopenia, unspecified location - ICD9: 733.90, ICD10: M85.80 (primary diagnosis) Reviewed bone density - Reviewed the need for Calcium and Vitamin D supplements and weight bearing exercise as tolerated - Check for secondary causes of bone loss with PTH, this was not done with most recent labs Start vitamin D drops to help with vitamin d def. - PTH INTACT BLD 2. Vitamin D deficiency - ICD9: 268.9, ICD10: E55.9 Reviewed vitamin d level Start vitamin D drops due to issues with tablets/capsules. Recheck lab with follow up in 4 months - VITAMIN D 25 HYDROXY - CHOLECALCIFEROL (VITAMIN D3) 10 MCG/5 ML (400 UNIT/5 ML) ORAL LIQUID 3. Thyroid nodule - ICD9: 241.0, ICD10: E04.1 Order 1 year ultrasound follow up with her 4 month up in August. 4. 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 [facility] 05-17-2022 History of Presen t illness Narrative SUBJECTIVE Una Castro is a 66 year old female here today for a check up on her medical problems. Chief Complaint Patient presents with: Results: discuss lab results Gas: bloating and distention in bowels treats with mk and lactaid. Questions lactose intolerance. denies constipation or diarrhea. denies any GERD or heartburn. Throat Problem: has a constant achy throat and Dr. Treviño states that she has odynophagia Covid Positive: on 05/03/22 symptoms started on 04/29/22 HPI Una Castro is a 66 year old female established patient of Dr. Treviño who presents today for follow up. She did recently have COVID. Still some fatigue/tiredness in the morning. Tested positive the beginning of the month. Cough here and there. Slowly improving. She would like to go over her recent labs and bone density results. Bone density shows osteopenia. Labs show stable thyroid functioning, low vitamin d level. She does not currently take a vitamin d supplement due to having issues with her stomach bothering her when she takes oral medications. Tried lactaid and mk this am, feeling okay with this. Thinking of trying bone broth. Has not tried probiotics. She is also wondering about when she should repeat her next thyroid ultrasound due to nodules noted. Her medications were reviewed today and her list is now up to date. Medications Current Outpatient Medications Medication Sig Valtrex 500 mg Oral 1.0 tablet Oral PRN cholecalciferol, vitamin D3, 10 mcg/5 mL (400 unit/5 mL) liqd Take 15 mL by mouth once daily. No current facility-administered medications for this visit. ALLERGIES Allergen Reactions Erythromyocin [Othe* GI Upset Vomiting, led to hospitalization ?Asa [Other] Anti-Inflammatory [* Calcium Maddy Bloc* Claririn [Other] Decongestants [Othe* Dog [Other] Dust [Other] Grasses [Other] Milk [Other] Mold [Other] ACTIVE PROBLEM LIST Osteopenia - 05/17/2022 Hypothyroidism Due to Jan's Thyroiditis - 05/17/2022 Thyroid Nodule - 05/17/2022 Raynaud's Disease - 09/20/2021 Social History Tobacco Use Smoking status: Never Smokeless tobacco: Never Substance Use Topics Alcohol use: No Drug use: No Review of Systems Cardiovascular: Negative. Gastrointestinal: Positive for nausea. Negative for constipation, diarrhea and vomiting. OBJECTIVE BP 110/76 Pulse 90 Wt 126 lb (57.2kg) SpO2 98% Physical Exam Vitals and nursing note reviewed. Constitutional: General: She is awake. She is not in acute distress. Appearance: Normal appearance. She is well-developed and well-groomed. She is not ill-appearing, toxic-appearing or diaphoretic. HENT: Head: Normocephalic. Right Ear: External ear normal. Left Ear: External ear normal. Nose: Nose normal. Eyes: General: Vision grossly intact. Conjunctiva/sclera: Conjunctivae normal. Pupils: Pupils are equal, round, and reactive to light. Neck: Vascular: No JVD. Trachea: Trachea normal. Cardiovascular: Rate and Rhythm: Normal rate and regular rhythm. Pulses: Normal pulses. Heart sounds: Normal heart sounds. No murmur heard. Pulmonary: Effort: Pulmonary effort is normal. No accessory muscle usage, prolonged expiration or respiratory distress. Breath sounds: Normal breath sounds. Musculoskeletal: Cervical back: Neck supple. Skin: General: Skin is warm and dry. Capillary Refill: Capillary refill takes less than 2 seconds. Neurological: General: No focal deficit present. Mental Status: She is alert and oriented to person, place, and time. Mental status is at baseline. Psychiatric: Attention and Perception: Attention and perception normal. Mood and Affect: Mood and affect normal. Speech: Speech normal. Behavior: Behavior normal. Behavior is cooperative. Thought Content: Thought content normal. Cognition and Memory: Cognition and memory normal. Judgment: Judgment normal. ASSESSMENT/PLAN: 1. Osteopenia, unspecified location - ICD9: 733.90, ICD10: M85.80 (primary diagnosis) Reviewed bone density - Reviewed the need for Calcium and Vitamin D supplements and weight bearing exercise as tolerated - Check for secondary causes of bone loss with PTH, this was not done with most recent labs Start vitamin D drops to help with vitamin d def. - PTH INTACT BLD 2. Vitamin D deficiency - ICD9: 268.9, ICD10: E55.9 Reviewed vitamin d level Start vitamin D drops due to issues with tablets/capsules. Recheck lab with follow up in 4 months - VITAMIN D 25 HYDROXY - CHOLECALCIFEROL (VITAMIN D3) 10 MCG/5 ML (400 UNIT/5 ML) ORAL LIQUID 3. Thyroid nodule - ICD9: 241.0, ICD10: E04.1 Order 1 year ultrasound follow up with her 4 month up in August. 4. 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 Dyspepsia - ICD9: 536.8, ICD10: R10.13 Discussed trying a probiotic daily. 6. Encounter for therapeutic drug monitoring - ICD9: V58.83, ICD10: Z51.81 - BASIC METABOLIC PNL - CBC + DIFF Medical Decision Making: Problems: Moderate: 2+ stable chronic illnesses Data: Unique test result(s) reviewed: 3+ Unique test(s) ordered: 3+ Risk: Moderate: Drug management Medical Decision Making Level: 4 - Moderate Portions of this note have been entered by ancillary staff. I have reviewed and when necessary edited, so that they are an adequate record of my encounter with this patient Please note that parts of this document were created using voice recognition software and therefore may contain grammatical errors. Patient verbalizes understanding of instructions from today's visit and in agreement with treatment plan. Questions answered. Agrees to call the office if questions, concerns of issues with acute symptoms not improving or if they worsen. See diagnoses and orders for additional plan(s). Allergies and medications were reviewed, list was updated, and refills given if needed. Past medical, surgical, social, and family history reviewed and updated as appropriate. Encouraged proper diet & exercise as well as compliance with taking medications. Age-appropriate health preventative measures were discussed. Return in about 4 months (around 09/14/2022) for Follow up on chronic conditions and medications.. Corina Kent APRN-ROBERT documented in this encounter [facility] 12-14-2021 Miscellaneous Notes My chart message to pt also. ----- Message from Nitza Treviño MD sent at 12/13/2021 11:03 PM EDT ----- Noted that TSH was still elevated and up to 7 but Free T4 and Free T4 within normal limits. Noted that had not tolerated levothyroxine even at lowest dose before. Can recheck labs every 4 to 6 months to see if TSH goes higher and Free T4 and Free T3 get lower, or if develops symptoms of thyroid being underactive. Could check up to every 2 months if needed having symptoms or if needs treated and dose adjusted. Blood counts are fine. Creatinine up to 1.11-make sure to drink enough water daily plus have water before labs (8 to 12 ounces adequate; okay even if having fasting labs). I ordered standing orders for thyroid tests so may do up to every 3 to 4 months. Also ordered BMP as well as Vitamin D and intact PTH to check in 3 to 4 months to see if anything contributing to thinning of the bone seen on recent bone density that showed osteopenia. Close to criteria for recommending medication to prevent progression to osteoporosis (10 year Fracture risk major osteoporotic fracture over 20% or hip fracture risk over 3 are the criteria--her risks are 19% and 2.2%). Would repeat bone density in 2 years. Also noted thyroid ultrasound--recommendations to recheck ultrasound with next one in 1 year. Follow up appointment if wants to discuss results after gets labs in 4 to 6 months. . documented in this encounter [facility] 10-10-2021 History of Presen t illness Narrative Radiology Service Progress Note PATIENT NAME: Una Castro DATE OF SERVICE: October 10, 2021 TIME: 8:13 AM PATIENT IDENTITY VERIFICATION COMPLETED USING TWO (2) IDENTIFIERS: Name and Date of confirmed by patient verbally. FALL SCREENING: Has the patient had 2 falls in the last year or 1 fall with injury or currently using an Ambulatory Assistive Device (Walker, Cane, Wheelchair, Crutches, etc.)? No PATIENT GENDER DATA: Female. status: : No status: NO. PATIENT RELEVANT IMPLANT DATA REVIEWED: Not Applicable RADIOLOGY DEPARTMENT: Bone Density PERIPHERAL IV DATA: Not applicable SIGNED BY: RT Puma(R) October 10, 2021 8:13 AM documented in this encounter [facility] Diagnosis Enlarged thyroid Goiter, unspecified Odynophagia Dysphagia, unspecified [facility] Diagnosis Asymptomatic postmenopausal status [facility]* Diagnosis Osteopenia, unspecified location- Primary Vitamin D deficiency Unspecified vitamin D deficiency Thyroid nodule Nontoxic uninodular goiter 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 Dyspepsia Dyspepsia and other specified disorders of function of stomach Encounter for therapeutic drug monitoring [facility] Diagnosis Vitamin D deficiency Unspecified vitamin D deficiency [facility]* Diagnosis Thyroid nodule- Primary Nontoxic uninodular goiter [facility] Diagnosis Abnormal ultrasound of thyroid gland- Primary Nonspecific abnormal results of thyroid function study [facility]* Diagnosis 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 Thyroid nodule Nontoxic uninodular goiter Vitamin D deficiency Unspecified vitamin D deficiency Encounter for therapeutic drug monitoring documented in this encounter [facility] for referral (narrative)* Diagnostic Procedure Only (Routine) - Pending Review Specialty Diagnoses / Procedures Referred By Vitor zaman Referred To Contact [facility] Diagnoses Encounter for screening mammogram for breast cancer Procedures ALESSANDRA SCREENING SCREENING MAMMOGRAPHY BI 2-VIEW BREAST INC CAD Nitza Treviño MD [address] [place] [address] [facility] [address] [place] [address] Referral ID Status Reason Start Date Expiration Date Visits Requested Visits Authorized [id number] Pending Review Auto-Generat ed Referral 09/21/2021 10/21/2022 1 1 T [facility] for referral (narrative)* Diagnostic Procedure Only (Routine) - Closed Specialty Diagnoses / Procedures Referred By Vitor zaman Referred To Contact [facility] Diagnoses Enlarged thyroid Odynophagia Procedures US THYROID/PARATHYROID US SOFT TISSUE HEAD & NECK REAL TIME IMGE Nitza Yu MD [address] [place] [address] [facility] Referral ID Status Reason Start Date Expiration Date V isits Requested Visits Authorized [id number] Closed Auto-Generate d Referral 09/20/2021 10/20/2022 1 1 T [facility] for visit Narrative* Diagnostic Procedure Only (Routine) - Closed Specialty Diagnoses / Procedures Referred By Vitor zaman Referred To Contact [facility] Diagnoses Enlarged thyroid Odynophagia Procedures US THYROID/PARATHYROID US SOFT TISSUE HEAD & NECK REAL TIME IMGE Nitza Yu MD [address] [place] [address] [facility] Referral ID Status Reason Start Date Expiration Date V isits Requested Visits Authorized [id number] Closed Auto-Generate d Referral 09/20/2021 10/20/2022 1 1 [facility] Reason for Referral Specialty Diagnoses / Procedures Referred By Vitor zaman Referred To Contact General Surgery Diagnoses Thyroid nodule Procedures CONSULT TO GENERAL SURGERY OFFICE/OUTPATIENT [facility] 60-74 MINUTES Corina Kent APRN.[employer] MA[employer]GER [address] [place] [address] Referral ID Status Reason Start Date Expiration Date Visits Requested Visits Authorized [id number] Authorized PCP Requested Referral 10/17/2022 10/17/2023 1 1 Advance Directives Documents on File Type Date Recorded Patient [employer] Expl anation Advance Directive(s) 11/06/2022 3:01 PM Summary Purpose Family History No Family History Records Found Additional Source Comments Source Comments (unrecognize d section and content) In the event this informatio n is protected by the Federal Confidentiality of Alcohol and Drug Abuse Patient Records regulations: The Federal rules restrict any use of the information to criminally investigate or prosecute any alcohol or drug abuse patient.[facility] the event this information is protected by the Federal Confidentiality of Alcohol and Drug Abuse Patient Records regulations: The Federal rules restrict any use of the information to criminally investigate or prosecute any alcohol or drug abuse patient.[facility] the event this information is protected by the Federal Confidentiality of Alcohol and Drug Abuse Patient Records regulations: The Federal rules restrict any use of the information to criminally investigate or prosecute any alcohol or drug abuse patient.[facility] the event this information is protected by the Federal Confidentiality of Alcohol and Drug Abuse Patient Records regulations: The Federal rules restrict any use of the information to criminally investigate or prosecute any alcohol or drug abuse patient.[facility] the event this information is protected by the Federal Confidentiality of Alcohol and Drug Abuse Patient Records regulations: The Federal rules restrict any use of the information to criminally investigate or prosecute any alcohol or drug abuse patient.[facility] the event this information is protected by the Federal Confidentiality of Alcohol and Drug Abuse Patient Records regulations: The Federal rules restrict any use of the information to criminally investigate or prosecute any alcohol or drug abuse patient.[facility] the event this information is protected by the Federal Confidentiality of Alcohol and Drug Abuse Patient Records regulations: The Federal rules restrict any use of the information to criminally investigate or prosecute any alcohol or drug abuse patient.[facility] the event this information is protected by the Federal Confidentiality of Alcohol and Drug Abuse Patient Records regulations: The Federal rules restrict any use of the information to criminally investigate or prosecute any alcohol or drug abuse patient.[facility] event this information is protected by the Federal Confidentiality of Alcohol and Drug Abuse Patient Records regulations: The Federal rules restrict any use of the information to criminally investigate or prosecute any alcohol or drug abuse patient.[facility] Center[facility] the event this information is protected by the Federal Confidentiality of Alcohol and Drug Abuse Patient Records regulations: The Federal rules restrict any use of the information to criminally investigate or prosecute any alcohol or drug abuse patient.[facility] Center[facility] the event this information is protected by the Federal Confidentiality of Alcohol and Drug Abuse Patient Records regulations: The Federal rules restrict any use of the information to criminally investigate or prosecute any alcohol or drug abuse patient.[facility] Care Teams (unrecognized sec tion and content) Oil Heater Operator Relationship Specialty Start Date End Date Nitza Treviño MD [facility] [place] [address] PCP - General Internal Medicine 09/20/21 Oil Heater Operator Relationship Specialty Start Date End Date Nitza Treviño MD [address] [place] [id number] PCP - General Internal Medicine 09/20/21 Oil Heater Operator Relationship Specialty Start Date End Date Nitza Treviño MD [address] [place] [id number] PCP - General Internal Medicine 09/20/21 Oil Heater Operator Relationship Specialty Start Date End Date Nitza Treviño MD [address] [place] [id number] PCP - General Internal Medicine 09/20/21 Oil Heater Operator Relationship Specialty Start Date End Date Nitza Treviño MD [address] [place] [id number] PCP - General Internal Medicine 09/20/21 Oil Heater Operator Relationship Specialty Start Date End Date Nitza Treviño MD [address] [place] [id number] PCP - General Internal Medicine 09/20/21 Oil Heater Operator Relationship Specialty Start Date End Date Nitza Treviño MD [address] [place] [id number] PCP - General Internal Medicine 09/20/21 Oil Heater Operator Relationship Specialty Start Date End Date Nitza Treviño MD [address] [place] [address] PCP - General Internal Medicine 09/20/21 Oil Heater Operator Relationship Specialty Start Date End Date Nitza Treviño MD [address] [place], [place] [id number] PCP - General Internal Medicine 09/20/21 Oil Heater Operator Relationship Specialty Start Date End Date Nitza Treviño MD [address] [place], [place] [id number] PCP - General Internal Medicine 09/20/21 Reason for Visit (unrecogniz ed section and content) Reason Comments Results discuss lab results Gas bloating and distent ion in bowels treats with mk and lactaid. Questions lactose intolerance. denies constipation or diarrhea. denies any GERD or heartburn. Throat Problem has a constant achy throat and Dr. Treviño states that she has odynophagia Covid Positive on 05/03/22 symptoms started on 04/29/22 Reason Comments Medication Problem Reason Comments Results Reason Comments Procedure US guided FNA right thyroid nodule biopsy Reason Comments Derm Problem Reason Comments 4 month follow up would like to cut ba ck on appointments. Is interested in confirming dx of jan. INFORMATION SOURCE (unrecogn ized section and content) FOR RECORDS PERTAINING TO PATIENTS WHO ARE OR HAVE BEEN ENROLLED IN A CHEMICAL DEPENDENCY/SUBSTANCEABUSE PROGRAM, SOME INFORMATION MAY BE OMITTED. This clinical summary was aggregated from multiple sources. Caution should be exercised in using it in the provision of clinical care. This summary normalizes information from multiple sources, and as a consequence, information in this document may materially change the coding, format and clinical context of patient data. In addition, data may be omitted in some cases. CLINICAL DECISIONS SHOULD BE BASED ON THE PRIMARY CLINICAL RECORDS. [employer] provides no warranty or guarantee of the accuracy or completeness of information in this document.
== END 2023-05-03 17:15 | disposition home or self-care (01) ==
PROVIDERS: Emergency Provider Student in an Organized Health Care Education/Training Program; PCP Internal Medicine; Visit Provider Student in an Organized Health Care Education/Training Program
DX: N30.91 Cystitis, unspecified with hematuria (principal); E86.0 Dehydration
CPT/HCPCS: 80053; 81001; 85025; 99284; A4216

== ENCOUNTER 2023-08-20 08:44 | Emergency (ER) | payer MEDICARE, SELFPAY ==
[2023-08-20 08:45] VITALS: BP 122/86; PULSE 77; RESP 16; TEMP 36.6; O2SAT 98; BMI 21.9
--- NOTE | 2023-08-20 08:58 | EX.ED.DYSGE1 ---
HPI History of Present Illness Chief Complaint: Other, Pain/Inj Detail of Chief Complaint: Pain and swelling neck Informant: patient Onset/Context/Timing Onset: Yesterday Context: Sudden Onset Timing: Continuous Quality: Pain Location: Anterior left and right neck Current Severity: Mild Maximum Severity: Moderate Worsened by: Palpation Relieved by: Nothing Associated Symptoms Associated Symptoms: None Narrative Narrative: Patient is a 67-year-old woman. She is on no medical duration. She has allergy to penicillin. She has taken azithromycin in the past. Of note erythromycin base she is intolerant of i.e. GI GI upset. She denies fever, chills night sweats. She denies change in voice. She denies inability to swallow liquids or solids. She states she does have odynophagia. She has some increased pain with drinking cold liquids. She denies weight loss or weight gain. She has no other complaints. Patient in April was diagnosed with strep pharyngitis. Patient's been seen for minor symptoms. ER records. 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 She also had a visit for dysuria. Patient has history of Raynaud's reviewing old records. Patient is only on vitamin D. Prior similar symptoms: No Recent Illness/Hospitalization: Yes (Strep pharyngitis through urgent care records.) [facility] Medical History Cyst of left breast Maribell's disease Odynophagia Raynaud's disease Home Medications cholecalciferol (vitamin D3) 50 mcg (2,000 unit) capsule (Vitamin D3) 50 mcg PO DAILY 05/22/22 [History Last Taken Unknown] Lactobacillus rhamnosus-Bifidobac. animalis 3 billion cell capsule (Codenomicon) cap PO 05/29/23 [History Last Taken Unknown] azithromycin 250 mg tablet See Rx Instructions PO .COMPLEX #6 tabs 06/21/23 [Rx Last Taken Unknown] azithromycin 250 mg tablet See Rx Instructions PO .COMPLEX #6 tabs 08/20/23 [Rx Last Taken Unknown] Allergy/AdvReac Type Severity Reaction Status Date / Time erythromycin base AdvReac gi upset Verified 08/20/23 08:45 Family History Mother Dementia Hypertension Sister Breast cancer, Onset Age: 68 No genetic testing. Had mets. had done radiation. Doing chemo now. No surgery. Surgical History Cataract extraction status of right eye H/O inguinal hernia repair History of rhinoplasty Social History Smoking Status: Never smoker alcohol intake: never substance use type: does not use what type of physical activity do you participate in: walking frequency: 5-6 times per week seatbelt use: always do you feel safe at home: Yes additional social history: Single ROS ROS ED Constitutional Constitutional ED: Denies chills, fever(s), subjective or sweats Eyes Eyes: Denies blurry vision, change in vision or diplopia ENT ENT ED: Reports other Details: Concern for mastitis. She denies ear pain. Denies ear drainage. She denies pain postauricular area. ; Denies ear pain, rhinorrhea or sore throat Cardiovascular Cardiovascular: Denies chest pain or palpitations Respiratory/Chest Respiratory/Chest: Denies cough, dyspnea or dyspnea on exertion Gastrointestinal Gastrointestinal: Denies nausea or vomiting Hematologic/Lymphatic Hematologic/Lymphatic: Reports systems reviewed and no addt'l complaints, except as documented Allergic/Immunologic Allergic/Immunologic ED: Denies mouth swelling or tongue swelling EXAM Physical Exam Const Vital Signs: 08/20/23 08:45 Temperature 97.8 F Temperature Source Temporal Pulse Rate 77 Respiratory Rate 16 Blood Pressure 122/86 H Blood Pressure Mean 98 Pulse Ox 98 Oxygen Delivery Method Room Air Positive well nourished and well developed General Appearance ED: well developed and NAD HEENT Reports moist mucous membranes HEENT Narrative: Head is atraumatic normocephalic. Ears normal. External auditory canals normal. TMs normal. There is no pain palpation over the mastoid region right or left. There is no swelling or erythema noted. Uvula is midline. There is no erythema of the posterior pharynx. Patient has no dysphonia. Patient does have bilateral anterior superior cervical lymphadenopathy. Nodes are tender, mobile and firm not hard. They are not irregularly shaped. Eyes PERRL and EOMs intact bilaterally General Eye ED: Negative for pale conjunctiva or scleral icterus Neck No no lymphadenopathy, supple and no JVD Resp normal respiratory effort and clear to auscultation bilaterally Cardio regular rate, regular rhythm, S1 normal heart sound, S2 normal heart sound and no murmurs Extremity normal to inspection Neuro oriented x3 and CN's II-XII intact bilaterally Sensorium / Orientation: alert Skin no rashes or lesions noted, no wounds and skin turgor normal MDM MDM MDM Narrative Medical decision making narrative: With no erythema exudate of posterior pharynx no history of fever this is not consistent with strep. Patient has in all likelihood cervical adenitis. Because of her allergy to penicillin she was treated with azithromycin. Patient was informed that if there is no improvement in 5 to 7 days she should follow-up with her doctor for further testing which may include imaging. History & Record Review Additional record(s) reviewed:: Prior outpatient record (Urgent care for strep pharyngitis), Prior ED visit (Noted in the HPI narrative) and Prior labs Discharge Plan Triage Chief Complaint: Other, Pain/Inj ED Provider: Zhen Kemp Dx/Rx/DC Orders Clinical Impression: Acute cervical adenitis, Odynophagia, Penicillin adverse reaction, Raynauds syndrome Instructions: ED ADENITIS Cervical Abx Tx Prescriptions: New azithromycin 250 mg tablet See Rx Instructions .ROUTE .COMPLEX Qty: 6 0RF Rx Instructions: For 250 mg dose pack: take 500 mg today (day 1), then 250 mg for 4 days (days 2-5) No Action cholecalciferol (vitamin D3) [Vitamin D3] 50 mcg (2,000 unit) capsule 50 mcg PO DAILY Codenomicon 3 billion cell capsule PO azithromycin 250 mg tablet See Rx Instructions PO .COMPLEX Qty: 6 0RF Rx Instructions: take 500 mg today (day 1), then 250 mg for 4 days (days 2-5) PO Primary Care Provider: Tracy Treviño Referrals: Tracy Treviño MD [Primary Care Provider] - 1 Week if not improving Disposition Disposition: Home, Self Care
== END 2023-08-20 09:30 | disposition home or self-care (01) ==
LOC: ED 09:17
PROVIDERS: Emergency Provider Emergency Medicine; PCP Internal Medicine; Visit Provider Emergency Medicine
DX: L04.0 Acute lymphadenitis of face, head and neck (principal); T36.0X5A Adverse effect of penicillins, initial encounter; I73.00 Raynaud's syndrome without gangrene
CPT/HCPCS: 99282

== ENCOUNTER → 2024-02-13 | Outpatient (CLI) | payer MEDICARE, SELFPAY ==
--- NOTE | 2024-02-13 07:51 | BI_ITS ---
MAMMOGRAPHY - BILATERAL SCREENING 3-D TOMOSYNTHESIS REASON FOR EXAM: Female, 68 years old. Screening for breast cancer PERTINENT HISTORY: No significant family history. TECHNIQUE: 2-D mammograms and 3-D Tomosynthesis of the breast (s) were performed. CAD was performed. COMPARISON: 01/29/2023 FINDINGS: The breast composition is Extermely dense tissue. Scattered benign calcifications are seen. No dense spiculated masses or suspicious microcalcifications are identified. No architectural distortion is identified. There is no skin thickening or retraction. There has been no significant change since the prior study. BI/SCRN MAMM (CAD)W/MICHELLE BILAT IMPRESSION: No mammographic signs of malignancy. Routine yearly mammograms recommended. ASSESSMENT CATEGORY: BIRADS Category 1: Negative. A letter regarding these results will be sent to the patient by the facility within 30 days. FOLLOW UP RECOMMENDATION: Yearly follow up mammogram recommended. (A) Approximately 10% of breast cancers are not detected by mammography. A normal mammogram should not delay biopsy of a clinically suspicious abnormality. Electronically Signed: Roger Giles MD at 8:47 EDT ,
== END | disposition home or self-care (01) ==
LOC: OPBI 07:50
PROVIDERS: PCP Internal Medicine; Referring Provider Nurse Practitioner Women's Health; Visit Provider Nurse Practitioner Women's Health
DX: Z12.31 Encounter for screening mammogram for malignant neoplasm of breast (principal)
CPT/HCPCS: 77063; 77067

== ENCOUNTER → 2025-02-13 | Outpatient (CLI) | payer MEDICARE, SELFPAY ==
--- NOTE | 2025-02-13 07:45 | BI_ITS ---
EXAM: SCRN MAMM (CAD)W/MICHELLE BILAT DATE: 02/13/2025 CLINICAL HISTORY: F, Age 69 y/o , BREAST CANCER SCREENING TECHNIQUE: Procedure Code: [id number] Modality: MG Procedure: SCRN MAMM (CAD)W/MICHELLE BILAT COMPARISON: Prior exam(s) dated 02/13/2024, 01/29/2023. FINDINGS: TISSUE DENSITY: The breasts are heterogeneously dense, which may obscure small masses. The mammogram demonstrates that the patient has dense breasts. Supplemental screening with whole breast ultrasound or MRI may be considered for further evaluation. Bilateral Breast Mammographic Findings: There is a focal asymmetry with associated architectural distortion in the slightly upper central left breast at anterior depth. No significant masses, calcifications or other abnormalities are identified in the right breast. BI/SCRN MAMM (CAD)W/MICHELLE BILAT IMPRESSION: The focal asymmetry with associated architectural distortion in the slightly up per central left breast at anterior depth requires further evaluation. Recommend diagnostic mammogram with magnification and spot compression views, as well as an ultrasound of the left breast. OVERALL FINAL ASSESSMENT BI-RADS 0: INCOMPLETE - NEED ADDITIONAL IMAGING EVALUATION. RECOMMENDATION: Additional Views obtained/call backs Additional Recommendation none A letter with findings and recommendations will be mailed to the patient. Reading Location: [id number]
--- OUTSIDE RECORDS SUMMARY | 2025-02-13 07:47 | XMS RPT_ITS | CCD ---
Author Organization [facility] Care Team Providers Care Psychological Operations Specialist Name Role Phone Soheila KAUR, Tiffany S Unavailable [phone] Nitza Treviño MD Primary Care Provider Nitza Treviño MD Primary Care Provider Nitza Treviño MD Primary Care Provider Dr. Nitza Treviño Primary Care Provider Dr. Nitza Treviño Referring Provider Soheila KAUR, MACHINIST LINOTYPEYonyC Tiffany Attending Provider CURRY Thomas Attending Provider BEBO Jernigan Attending Provider Nitza Treviño MD Primary Care Provider Yoli SNATH HANDLE ASSEMBLER.COMPUTER SYSTEMS SOFTWARE ENGINEER, Corina Unavailable Armando SNATH HANDLE ASSEMBLER.ISSUING OPERATOR, Makenna Unavailable [phone] CORINA KENT Referring Unavailable TALAMPAS, NITZA D Primary Care Unavailable ROBERTS, MAKENNA Attending Unavailable TALAMPAS, NITZA D Primary Care Unavailable Talampas, Nitza D Referring Unavailable Talampas, Nitza D Primary Care Unavailable Clay MACHINIST LINOTYPE, Tiffany Attending Unavailable Talampas, Nitza D Primary Care Unavailable Clay MACHINIST LINOTYPE, Tiffany Referring Unavailable Clay MACHINIST LINOTYPE, Tiffany Attending Unavailable Talampas, Nitza D Primary Care Unavailable Soheila MACHINIST LINOTYPE, Tiffany Referring Unavailable Soheila MACHINIST LINOTYPE, Tiffany Attending Unavailable Allergies Allergy Classification Reported Allergen(s) Allergy Type Date of Onset Reaction(s) Facility (2 sources) erythromycin Drug Allergy 03-29-[address] [facility] (17 sources) Mold Extract Drug Allergy 10-21-19 [facility] Work Phone: (7 sources) ?asa [Other] Propensity to adverse reactions 10-21-19 [facility] Work Phone: (17 sources) anti-inflammatory [Other] Propensity to adverse reactions 10-21-19 [facility] Work Phone: (7 sources) calcium maddy teo [Other] Propensity to adverse reactions 10-21-19 [facility] Work Phone: (17 sources) claririn [Other] Propensity to adverse reactions 10-21-19 [facility] Work Phone: (17 sources) decongestants [Other] Propensity to adverse reactions 10-21-19 [facility] Work Phone: (17 sources) dog [Other] Propensity to adverse reactions 10-21-19 [facility] Work Phone: (17 sources) dust [Other] Propensity to adverse reactions 10-21-19 [facility] Work Phone: (17 sources) erythromyocin [Other] Propensity to adverse reactions 10-21-19 GI Upset [facility] (17 sources) Grasses [Other] Propensity to adverse reactions 10-21-19 [facility] Work Phone: (17 sources) Milk [Other] Propensity to adverse reactions 10-21-19 [facility] Work Phone: (5 sources) Erythromycin Drug Allergy 05-11-19 22 gi upset [facility] (6 sources) Penicillins; Translations: [PENICILLINS] Drug Allergy 08-28-19 24 Rash, Itching [facility] (1 source) Penicillins Drug Allergy 08-28-19 24 Rash, Itching [facility] (1 source) OTHER; Translations: [OTHER] Propensity to adverse reactions (disorder) 10-21-19 [facility] (1 source) Erythromycin Drug Allergy 06-03-19 [facility] Medications Current Medications Medication Drug Class(es) Dates Sig (Normalized) Sig (Original) azithromycin 250 mg oral tablet (2 sources) Macrolide Antimicrobial Start: 06-21-2023 Azithromycin Active 0 PO .COMPLEX 6 August 20, 2023 12:00am For 250 mg dose pack: take 500 mg today (day 1), then 250 mg for 4 days (days 2-5) cholecalciferol 0.05 mg oral capsule (15 sources) Vitamin D Start: 05-22-2022 take 1 capsule by mouth once daily Cholecalciferol (Vitamin D3) (Vitamin D3) 50 mcg (2,000 unit) capsule Active 50 MCG PO DAILY May 22, 2022 1:00am Start: 05-17-2022 End: 05-17-2022 take 15 mL by mouth once daily cholecalciferol, vitamin D3, 10 mcg/5 mL (400 unit/5 mL) liqd Indications: Vitamin D deficiency Take 15 mL by mouth once daily. 240 mL 2 05/17/2022 05/17/2022 Discontinued Start: 05-17-2022 End: 05-17-2022 take 1 mL by mouth once daily Cholecalciferol, Vitamin D3, 125 mcg/mL (5,000 unit/mL) drop Indications: Osteopenia, unspecified location , Vitamin D deficiency Take 1 mL by mouth once daily. 59 mL 2 05/17/2022 05/17/2022 Discontinued Start: 05-17-2022 take 5 mL by mouth once daily cholecalciferol, Vitamin D3, (D--MARCO) 400 units/mL oral liquid Indications: Vitamin D deficiency Take 5 mL by mouth once daily. 450 mL 1 05/17/2022 Active take 1 tablet by carlos th once daily cholecalciferol (VITAMIN D-3) 50 mcg (2,000 unit) tablet Take 2,000 Units by mouth once daily. Active Comment on above: Take 1 mL by mouth o nce daily. Take 15 mL by mouth once daily. Take 5 mL by mouth o nce daily. Take 15 mL by mouth once daily. Can substitute with 400 unit / 1 ml concentration at a total of 3 ml orally daily. [employer] system does not have that concentration as an option L.Rhamnosus-B.Anim nuvia (Hlidacky.cz) 3 billion cell capsule (1 source) Start: 05-29-2023 L.Rhamnosus-B.Ani malis (Hlidacky.cz) 3 billion cell capsule Active CAP PO May 29, 2023 1:00am L.rhamnosus/B.anim vesna pedersen, ([employer] ORAL) (6 sources) take 1 tablet by mouth once daily L.rhamnosus/B.ani menalactis, ([employer] ORAL) Take 1 tablet by mouth once daily. Active take 1 tablet by carlos th once daily L.rhamnosus/B.animalislactis, ([employer] ORAL) Take 1 tablet by mouth once daily. 0 Active [place] (Nk) (1 source) Start: 05-11-2021 [place] (Nk) Active May 11, 2021 1:00am valACYclovir 500 mg oral tablet (17 sources) Herpesvirus Nucleoside Analog DNA Polymerase Inhibitor, Herpes Simplex Virus Nucleoside Analog DNA Polymerase Inhibitor, Herpes Zoster Virus Nucleoside Analog DNA Polymerase Inhibitor Start: 10-21-1999 Valtrex 500 mg Oral 1.0 tablet Oral PRN 1.0 tablet 0 10/21/1999 Active Comment on above: 1.0 tablet Oral PRN Completed/Discontinued Medications Medication Drug Class(es) Dates Sig (Normalized) Sig (Original) betamethasone 1 mg/ml topical cream (5 sources) Corticosteroid Start: 10-19-2008 End: 05-17-2022 BETAMETHASONE VALERATE 0.1 % TOPICAL CREAM APPLY AT BEDTIME FOR 14 DAYS THEN TWICE A WEEK 0 10/19/2008 05/17/2022 Discontinued Comment on above: APPLY AT BEDTIME FOR 14 DAYS THEN TWICE A WEEK cephalexin 500 mg oral capsule (2 sources) Cephalosporin Antibacterial Start: 05-03-2023 End: 05-29-2023 take 500 mg by mouth every twelve hours Cephalexin Discontinued 500 MG PO EVERY 12 HOURS May 03, 2023 1:00am May 29, 2023 9:59am levothyroxine sodium 0.025 mg oral tablet (5 sources) l-Thyroxine Start: 07-07-2019 End: 05-11-2021 Levothyroxine Discontinued PO July 07, 2019 12:00am May 11, 2021 11:14am nitrofurantoin, macrocrystals 25 mg / nitrofurantoin, monohydrate 75 mg oral capsule (5 sources) Nitrofuran Antibacterial Start: 07-07-2019 End: 07-12-2019 take 100 mg by mouth every twelve hours at mealtime Nitrofurantoin Monohyd/M-Cryst Discontinued 100 MG PO Q12H 10 5 July 07, 2019 12:00am July 12, 2019 12:09am must administer with a meal/food ondansetron 4 mg disintegrating oral tablet (2 sources) Serotonin-3 Receptor Antagonist Start: 05-03-2023 End: 05-29-2023 take 4 mg by mouth every eight hours as needed Ondansetron Discontinued 4 MG PO EVERY 8 HOURS NEEDED May 03, 2023 1:00am May 29, 2023 9:59am penicillin v potassium 500 mg oral tablet (1 source) Start: 06-17-2023 End: 06-27-2023 take 500 mg by mouth twice daily Penicillin V Potassium Discontinued 500 MG PO TWICE A DAY 16 02June 17, 2023 1:00am June 27, 2023 1:09am Problems Active Problems Problem Classification Problem Date Documented Da te Episodic/Chronic Abdominal pain (1 source) Indigestion; Translations: [Epigastric pain] Episodic Diseases of mouth; excluding dental (2 sources) Glossitis; Translations: [Glossitis] Onset: 01-01-2025 01-01-2025 Episodic E Codes: Adverse effects of medical drugs (4 sources) Penicillin adverse reaction; Translations: [Adverse effect of penicillins, initial encounter] Onset: 01-01-2025 08-20-2023 Episodic Immunizations and screening for infectious disease (3 sources) Requires diphtheria, tetanus and pertussis vaccination; Translations: [Encounter for immunization] 04-04-2023 Episodic Lymphadenitis (2 sources) Acute cervical adenitis ; Translations: [Acute lymphadenitis of face, head and neck] 08-20-2023 Episodic Nutritional deficiencies (7 sources) Vitamin D deficiency; Translations: [Vitamin D deficiency, unspecified] Onset: 01-23-2024 Chronic Open wounds of extremities (3 sources) Laceration of hand; Translations: [Laceration without foreign body of left hand, initial encounter] 04-04-2023 Episodic Other circulatory disease (20 sources) Raynaud's disease; Translations: [Raynaud's syndrome without gangrene] Onset: 09-20-2021 09-20-2021 Chronic Other connective tissue disease (5 sources) Foot pain; Translations: [Pain in right foot] 01-19-2017 Episodic Other gastrointestinal disorders (5 sources) Swallowing painful; Translations: [Dysphagia, unspecified] Episodic Other nervous system disorders (5 sources) Mortons neuroma of right foot; Translations: [Lesion of plantar nerve, right lower limb] 01-19-2017 Chronic Other screening for suspected conditions (not mental disorders or infectious disease) (1 source) Finding of thyroid gland; Translations: [Abnormal findings on diagnostic imaging of other specified body structures] 11-13-2022 Chronic Other screening for suspected conditions (not mental disorders or infectious disease) (7 sources) Patient encounter status; Translations: [Encounter for screening mammogram for malignant neoplasm of breast] Onset: 03-06-2024 Episodic Other upper respiratory disease (1 source) Allergic rhinitis; Translations: [Allergic rhinitis, unspecified] 01-01-2025 Chronic Other upper respiratory disease (1 source) Allergic rhinitis, unspecified; Translations: [Allergic rhinitis, unspecified seasonality, unspecified trigger] Onset: 01-01-2025 Chronic Other upper respiratory infections (3 sources) Streptococcal sore throat; Translations: [Streptococcal pharyngitis] 06-17-2023 Episodic Residual codes; unclassified (1 source) Postmenopausal state; Translations: [Asymptomatic menopausal state] Episodic Residual codes; unclassified (5 sources) Family history of malignant neoplasm of breast in first degree relative; Translations: [Family history of malignant neoplasm of breast] 05-11-2021 Episodic Thyroid disorders (20 sources) Goiter; Translations: [...] Problem Date Documented Da te Episodic/Chronic Other bone disease and musculoskeletal deformities (15 sources) Osteopenia; Translations: [Other specified disorders of bone density and structure, unspecified site] Onset: 05-17-2022 Episodic Other lower respiratory disease (11 sources) Cough; Translations: [Post-COVID chronic cough] Onset: 09-15-2022 09-15-2022 Episodic Results Test Name Value Interpretation Reference Range Facility [facility] 01-01-2025 CNOV Office Visit (INTMWS ) JAMARI THOMPSON ([id number]) 1955 F Date Time Provider Department 01/01/25 8:20 AM MAKENNA ROBERTS INTMWS During your visit today, we recorded the following information about you: Pulse Respiration Blood pressure Weight 71/minute 16/minute 122/82 56.4 kg Makenna Roberts APRN.ISSUING OPERATOR 01/01/2025 9:06 AM Signed Subjective Patient ID: Jamari is a 69 year old female who presents for Thyroid Problem (thyroid problem getting worse and unable to take pills due to gastric upset) and tongue (scalloped but getting better. Related to Hasimoto thyroiditis). HPI The patient is a 69-year-old female with Jan?s thyroiditis, presenting for evaluation of tongue pain and swelling and for thyroid function testing. Tongue Swelling and Pain: - Onset: Sunday. - Initial presentation: Pain and redness at the tip of the tongue, no open sores noted. - Aggravated by contact with teeth. - Associated symptoms: Sore throat and tingling sensation in the tongue. - Noticed swelling and a "wavy" appearance of the tongue. - Applied ice to the tongue, which alleviated the pain. - Jamari denies current pain; swelling has decreased. Present for 5 days, improving. Jan's Thyroiditis: - Jamari was diagnosed with 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. - Concerns about potential thyroid-related causes for tongue swelling. - Previous adverse reaction to levothyroxine, including headaches, palpitations, insomnia, and irritability. - Jamari reports consistently high TSH levels; most recent T3 and T4 levels were below normal. - Jamari has not had thyroid levels checked recently due to insurance billing issues. Review of chart shows no recent prescription levothyroxine Medication Sensitivity: - Jamari reports hypersensitivity to medications, including NSAIDs and vitamins. - Experiences abdominal pain radiating to the neck and back with any oral medication or vitamin intake. - Pain described as "tightness" across the abdomen, leading to severe discomfort. - Jamari has not undergone endoscopy. - Uses Maalox every 4-5 days and Gas-X at bedtime, which provides some relief. - Previous use of vitamin D resulted in insomnia and disrupted sleep patterns; discontinued use after several weeks of poor sleep. Objective BP 122/82 Pulse 71 Resp 16 Wt 56.4 kg (124 lb 5.4 oz) LMP (LMP Unknown) SpO2 99% BMI 21.34 kg/m? Physical Exam Vitals and nursing note reviewed. Constitutional: Appearance: Normal appearance. HENT: Head: Normocephalic and atraumatic. Mouth/Throat: Lips: [place]. Mouth: Mucous membranes are moist. Pharynx: Oropharynx is clear. Tonsils: No tonsillar exudate. Comments: No current scalloping, tongue is clear Eyes: Conjunctiva/sclera: Conjunctivae normal. Cardiovascular: Rate and Rhythm: Normal rate. Pulmonary: Effort: Pulmonary effort is normal. Skin: General: Skin is warm and dry. Neurological: General: No focal deficit present. Mental Status: She is alert and oriented to person, place, and time. 1. 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 - Order TSH, free T3, and free T4 labs. - Discussed importance of regular thyroid monitoring and management options if levels are abnormal. 2. Allergic rhinitis, unspecified seasonality, unspecified trigger (J30.9) - Symptoms currently mild and attributed to recent gardening. 3. Glossitis (K14.0) - Acute onset of tongue pain and swelling began Sunday; improved with ice application. - No current pain or swelling on exam. 4. Adverse effect of other nonsteroidal anti-inflammatory drugs (NSAID), initial encounter (T39.395A) - History of significant GI sensitivity to NSAIDs and other medications. - Advised continuation of Gas-X as needed for gas relief. 5. Vitamin D deficiency (E55.9) - History of adverse reaction to vitamin D supplementation. She reports prior difficulty with levothyroxine, sounds like her dose of medication may have been too high. Reports concern about taking medication if needed. She reports sensitivity to medications and vitamins. Reports vitamin D caused insomnia. Notes GI upset and left-sided abdominal pain with bloating with medications, no prior EGD. Has been taking Gas-X and Maalox for GI upset with relief. Makenna Roberts APRN.ISSUING OPERATOR Medical Decision Making: Problems: Low: Acute, uncomplicated illness or injury Data: Unique test(s) ordered: 3+ Risk: Moderate: Drug management Medical Decision Making Level: 4 - Moderate Allergies As of Date: 01/01/2025 Noted Allergy Reaction erythromyocin [Other] 10/21/1999 8 - GI Upset Comments: Vomiting, led to hospitalization anti-inflammatory [Other] 10/21/1999 claririn [Other] 10/21/1999 decongestants [Other (more content not included)... 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 cap PO 05/29/23 06/03/24 History animalis 3 billion cell capsule (Hlidacky.cz) azithromycin 250 mg tablet See Rx Instructions PO .COMPLEX #6 06/21/23 06/03/24 Rx tabs azithromycin 250 mg tablet See Rx Instructions PO .COMPLEX #6 08/20/23 06/03/24 Rx tabs Is last menstrual period known: No Post menopausal: Yes Patient : No : No PFSH Medical History Odynophagia Cyst of left breast Raynaud's disease Jan's disease Surgical History History of rhinoplasty Cataract extraction status of right eye H/O inguinal hernia repair Family History Mother Dementia Hypertension Sister Breast cancer, Onset Age: 68 No genetic testing. Had mets. had done radiation. Doing chemo now. No surgery. Social History Smoking Status: Never smoker alcohol intake: never substance use type: does not use what type of physical activity do you participate in: walking frequency: 5-6 times per week seatbelt use: always do you feel safe at home: Yes additional social history: Single History 0 Elective abortions Hx Para Spontaneous abortions Hx # Term Pregnancies Ectopic pregnancies Hx # Pregnancies Multiple births # of living children HPI Encounter for routine gynecological examination Details: JAMARI THOMPSON is a 68 year old who presents for annual exam. She declines pelvic exam. Denies other concerns. Never sexually active. Last PAP: NA History of abnormal PAP: no Last mammogram: 01/2024 History of abnormal mammogram: no Colon cancer screening: cologuard up to date with PCP Other preventative health care screenings: Kamila Female Reproductive History Questions: metorrhagia: No and sexually active: No ROS Const Constitutional: Denies fatigue, weight gain or weight loss Cardio Card: Denies chest pain Resp Resp: Denies cough or dyspnea on exertion GI GI: Denies abdominal pain, bloating, change in stool character, constipation or vomiting : Reports as per HPI; Denies difficulty voiding, pelvic pain, urinary frequency, urinary incontinence, urinary urgency, vaginal discharge or vaginal pruritus Exam Const General: cooperative, healthy appearing, no acute distress and well developed Orientation: alert, oriented to person and oriented to place HENTX Head: normal to inspection Neck Neck: normal visual inspection Thyroid: thyroid normal Lymphatic: no lymphadenopathy noted Chest Breast inspection: normal inspection of the breasts and normal inspection of the axillae Breast palpation: normal palpation of the breasts, normal palpation of the axillae and no axillary lymphadenopathy Resp Effort Inspection: normal respiratory effort GI Palpation: soft, no masses and nontender Rectal Exam: deferred Neuro General: patient alert and patient oriented x3 Psych Affect: normal affect Coding Level of Care Code Pelvic/Breast Diagnoses Encounter for gynecological examination without abnormal finding Z01.419 Gynecological examination findings: abnormal findings ABSENT Assessment and Plan Assessment and Plan (1) Encounter for routine gynecological examination: Qualifiers: Gynecological examination findings: abnormal findings ABSENT Qualified Code(s): Z01.419 - Encounter for gynecological examination (general) (routine) without abnormal findings Plan Completed breast exam Reviewed diet and exercise Pap na Mammogram ordered breast self exam encouraged monthly Contraception abstinence Colonoscopy cologuard recent Bone density with PCP RTO 1 year, prn with problems Tiffany Parnell [facility] 06/03/24 1445 Date (more content not included)... Normal [facility] SCRN MAMM (CAD)W/MICHELLE BILATo n 02-13-2024 SCRN MAMM (CAD)W/MICHELLE BILAT [facility] Imaging Services [address] [place] [id number] SCRN MAMM (CAD)W/MICHELLE BILAT MR#: [id number] Acct: [id number] Name: JAMARI THOMPSON Rep #: [id number] : 1955 F 68 From: Roger Giles MD PCP: Dr. Nitza Treviño MD Status: REG CLI Study: SCRN MAMM (CAD)W/MICHELLE BILAT Date of Exam: 01/28 10/21 Exam# [id number] Ordering Dr: Tiffany Parnell MACHINIST LINOTYPE MACHINIST LINOTYPE -[id number] MAMMOGRAPHY - BILATERAL SCREENING 3-D TOMOSYNTHESIS REASON FOR EXAM: Female, 68 years old. Screening for breast cancer PERTINENT HISTORY: No significant family history. TECHNIQUE: 2-D mammograms and 3-D Tomosynthesis of the breast (s) were performed. CAD was performed. COMPARISON: 01/29/2023 FINDINGS: The breast composition is Extermely dense tissue. Scattered benign calcifications are seen. No dense spiculated masses or suspicious microcalcifications are identified. No architectural distortion is identified. There is no skin thickening or retraction. There has been no significant change since the prior study. BI/SCRN MAMM (CAD)W/MICHELLE BILAT IMPRESSION: No mammographic signs of malignancy. Routine yearly mammograms recommended. ASSESSMENT CATEGORY: BIRADS Category 1: Negative. A letter regarding these results will be sent to the patient by the facility within 30 days. FOLLOW UP RECOMMENDATION: Yearly follow up mammogram recommended. (A) Approximately 10% of breast cancers are not detected by mammography. A normal mammogram should not delay biopsy of a clinically suspicious abnormality. Electronically Signed: Roger Giles MD at 8:47 EDT , CC: CURRY Parnell; Dr. Nitza Treviño MD Epic Director: Signed Normal [facility] 25(OH)D3 [facility] 2023 25-hydroxyvitamin D3 [Mass/Vol] 27.5 ng/mL Low 31.0-80.0 [facility] Comment on above: Order Comment: Speci men Type: BLOOD SPECIMEN Ordering Facility: [facility] Address: [address] [place] [address] Result Comment: Clas sification of 25 [place] Vitamin D status: Deficiency/Insufficiency: < or = 30 ng/ml. Sufficiency/Optimal Levels: 31-80 ng/mL Toxicity: > 100 ng/mL. Test performed by chemiluminescent immunoassay. Performed By: #### 1 989-3 #### [facility] CLIA [id number] [address] [place] [address] [id number], [place] [address] [place] T3Free SerPl-mCncon 01-23-20 24 Free T3 [Mass/Vol] 2.8 pg/mL Normal 2.3-4.1 [facility] Comment on above: Order Comment: Speci men Type: BLOOD SPECIMEN Ordering Facility: [facility] Address: [address] [place] [address] Performed By: #### 3 016-3, 3024-7, 305-0 #### [facility] CLIA [id number] [address] [place] [address] [place] T4 Free SerPl-mCncon 024 Free T4 [Mass/Vol] 0.9 ng/dL Normal 0.9-1.7 [facility] Comment on above: Order Comment: Aranzai karsten Type: BLOOD SPECIMEN Ordering Facility: [facility] Address: [address] [place] [address] Performed By: #### 3 016-3, 30247, 305-0 #### [facility] CLIA [id number] [address] [place] [address] [place] THYROID PEROXIDASE ANTIBODYo n 01-23-2024 TPO Ab Qn 1660.0 [IU]/mL High <5.6 [facility] Comment on above: Order Comment: Aranzai karsten Type: BLOOD SPECIMEN Ordering Facility: [facility] Address: [address] [place] [address] Result Comment: Thyr oid Peroxidase Antibody test is used as an aid in diagnosis of autoimmune thyroid disease. Clinical correlation is required. Performed By: #### M ICRO #### [facility] [facility] CLIA [id number] [address] [place] [address] [place] TSH SerPl-aCncon 01-23-2024 TSH Qn 11.900 m[IU]/L High 0.270-4.200 [facility] Comment on above: Order Comment: Aranzai men Type: BLOOD SPECIMEN Ordering Facility: [facility] Address: [address] [place] [address] Performed By: #### 3 016-3, 3024-7, 3051-0 #### [facility] CLIA [id number] [address] [place] [address] [place] Laboratory - Microbiology an d Antimicrobial susceptibilityon 06-17-2023 S. pyogenes Ag IA Ql (Unsp spec) Positive [facility] No Panel Informationon 06-17 POC SARS CoV-2 Antigen Negative [facility] Absolute lymphocyte countOrd ered By: ED PROVIDER on 05-03-2023 Lymphocytes Auto (Unsp spec) [#/Vol] 2.63 10*3/uL 0.83-4.51 [facility] Basophil percentageOrdered B y: ED PROVIDER on 05-03-2023 Basophil percentage >100 SEEN /hpf 0-5 [facility] Basophils/100 WBC (Bld) 0.6 % 0-1 [facility] Bilirubin [Mass/Vol] 0.60 mg/dL 0.20-1.00 [facility] Comment on above: For patients on eltr ombopag therapy, use of Dimension [place] TBIL is not recommended. Chloride [Moles/Vol] 110 mmol/L 98-107 [facility] Eosinophils/100 WBC (Bld) 1.9 % 0-5 [facility] Glucose [Mass/Vol] 93 mg/dL 74-106 [facility] Neutrophils (Bld) [#/Vol] 3.1 10*3/uL 2.0-7.7 [facility] Neutrophils/100 WBC (Bld) 47.7 % 47-70 [facility] Potassium [Moles/Vol] 3.6 mmol/L 3.5-5.1 [facility] Protein [Mass/Vol] 7.3 g/dL 6.4-8.2 [facility] Sodium [Moles/Vol] 140 mmol/L 136-145 [facility] WBC (Bld) [#/Vol] 6.4 10*3/uL 4.4-11.0 [facility] Bilirubin Test strip Ql (U)O rdered By: ED PROVIDER on 05-03-2023 Bilirubin Ql (U) Negative Negative [facility] Blood erythrocytes count (nu mber/volume)Ordered By: ED PROVIDER on 05-03-2023 RBC (Bld) [#/Vol] 4.93 10*6/uL 4.2-5.4 [facility] Blood hemoglobin measurement (mass/volume)Ordered By: ED PROVIDER on 05-03-2023 Hemoglobin (Bld) [Mass/Vol] 14.4 g/dL 12.0-15.0 [facility] Blood lymphocytes/100 leukoc ytesOrdered By: ED PROVIDER on 05-03-2023 Lymphocytes/100 WBC (Bld) 41.1 % 19-41 [facility] Blood monocytes/100 leukocyt esOrdered By: ED PROVIDER on 05-03-2023 Monocytes/100 WBC (Bld) 8.4 % 0-10 [facility] Blood platelet mean volumeOr dered By: ED PROVIDER on 05-03-2023 Platelet mean volume (Bld) [Entitic vol] 10.8 fL 6.2-12.0 [facility] Determination of erythrocyte mean corpuscular volume (MCV)Ordered By: ED PROVIDER on 05-03-2023 MCV (RBC) [Entitic vol] 92.5 fL 81-99 [facility] Hematocrit Auto (Bld) [Volum e fraction]Ordered By: ED PROVIDER on 05-03-2023 Hematocrit (Bld) [Volume fraction] 45.6 % 37-47 [facility] Ketones Test strip Ql (U)Ord ered By: ED PROVIDER on 05-03-2023 Ketones Ql (U) 15 mg/dl Negative [facility] Laboratory - Chemistry and C hemistry - challengeOrdered By: ED PROVIDER on 05-03-2023 ALP [Catalytic activity/Vol] 94 U/L 45-117 [facility] ALT [Catalytic activity/Vol] 23 U/L 13-56 [facility] CO2 [Moles/Vol] 25.0 mmol/L 21.0-32.0 [facility] Globulin (S) [Mass/Vol] 3.8 g/dL 2.2-4.2 [facility] Urea nitrogen/Creatinine [Mass ratio] 24.5 mg/mg 10-20 [facility] Laboratory - Hematology and Cell countsOrdered By: ED PROVIDER on 05-03-2023 Erythrocyte distribution width (RBC) [Entitic vol] 46.2 fL 35.1-43.9 [facility] Erythrocyte distribution width (RBC) [Ratio] 13.5 % 11.6-14.6 [facility] Immature granulocytes/100 WBC (Bld) 0.300 % 0.0-0.9 [facility] Comment on above: IG% - Immature Granu locytes (promyelocytes, myelocytes and metamyelocytes) > 1% indicates that a LEFT SHIFT is Present. MCH (RBC) [Entitic mass] 29.2 pg 27.0-32.0 [facility] Nucleated RBC/100 WBC (Bld) [Ratio] 0 % 0-5 [facility] MCHC Auto (RBC) [Mass/Vol]Or dered By: ED PROVIDER on 05-03-2023 MCHC (RBC) [Mass/Vol] 31.6 g/dL 32-36 [facility] Mucus LM Ql (Urine sed)Order ed By: ED PROVIDER on 05-03-2023 Mucus Ql (Urine sed) 0 SEEN /hpf [facility] Nitrite Test strip Ql (U)Ord ered By: ED PROVIDER on 05-03-2023 Nitrite Ql (U) Negative Negative [facility] No Panel InformationOrdered By: ED PROVIDER on 05-03-2023 Urine Transitional Epithelial Cells 5-10 SEEN /hpf 0-5 [facility] Estimated Creatinine Clearance Calc 42.86 ml/min [facility] Estimated GFR (MDRD) Amer 64 mL/min >60 [facility] Comment on above: GFR Calc Estimated GFR (MDRD) Non-Af Amer 53 mL/min >60 [facility] Comment on above: Non- GFR Calc Platelets bldOrdered By: ED PROVIDER on 05-03-2023 Platelets (Bld) [#/Vol] 299 10*3/uL 150-450 [facility] Protein Test strip Ql (U)Ord ered By: ED PROVIDER on 05-03-2023 Protein Ql (U) 30 mg/dl Negative [facility] Serum or plasma albumin fransisca urement (mass/volume)Ordered By: ED PROVIDER on 05-03-2023 Albumin [Mass/Vol] 3.5 g/dL 3.2-5.0 [facility] Serum or plasma albumin/glob ulin mass ratioOrdered By: ED PROVIDER on 05-03-2023 Albumin/Globulin [Mass ratio] 0.9 {ratio} 0.9-2.4 [facility] Serum or plasma calcium fransisca urement (mass/volume)Ordered By: ED PROVIDER on 05-03-2023 Calcium [Mass/Vol] 8.7 mg/dL 8.5-10.1 [facility] Serum or plasma creatinine m easurement (mass/volume)Ordered By: ED PROVIDER on 05-03-2023 Creatinine [Mass/Vol] 1.10 mg/dL 0.55-1.02 [facility] Comment on above: The validity of the calculated GFR & GFRAA in patients over 70 years has not been determined. Clinical correlation is essential. Serum or plasma urea nitroge n measurement (mass/volume)Ordered By: ED PROVIDER on 05-03-2023 Urea nitrogen [Mass/Vol] 27 mg/dL 7-18 [facility] Squamous epithelial cells de tection in urine sediment by light microscopyOrdered By: ED PROVIDER on 05-03-2023 Epithelial cells.squamous LM Ql (Urine sed) 0 SEEN /hpf 5-10 [facility] Thin prep Papanicolaou smear with manual screeningOrdered By: ED PROVIDER on 05-03-2023 Thin prep Papanicolaou smear with manual screening 19 U/L 15-37 [facility] Thin prep Papanicolaou smear with manual screening 5 5-15 [facility] Urine blood detectionOrdered By: ED PROVIDER on 05-03-2023 RBC Ql (U) 50 /ul Negative [facility] RBC Ql (U) 10-25 SEEN /hpf 0-5 [facility] Urine clarityOrdered By: ED PROVIDER on 05-03-2023 Clarity (U) Sl. Cloudy Clear [facility] Urine color determinationOrd ered By: ED PROVIDER on 05-03-2023 Color (U) Yellow Yellow [facility] Urine glucose detectionOrder ed By: ED PROVIDER on 05-03-2023 Glucose Ql (U) Normal mg/dl Normal [facility] Urine leukocyte esterase det ection by dipstickOrdered By: ED PROVIDER on 05-03-2023 Leukocyte esterase Test strip Ql (U) 500 /ul Negative [facility] Urine pHOrdered By: ED PROVI RONALD on 05-03-2023 pH (U) 5.0 [pH] 5.0 - 8.0 [facility] Urine sediment bacteria coun t by microscopy (number/high power field)Ordered By: ED PROVIDER on 05-03-2023 Bacteria LM.HPF (Urine sed) [#/Area] 1 /[HPF] None Seen [facility] Urine specific gravity measu rementOrdered By: ED PROVIDER on 05-03-2023 Specific gravity (U) [Rel density] 1.030 1.002-1.030 [facility] Urobilinogen Auto test strip Ql (U)Ordered By: ED PROVIDER on 05-03-2023 Urobilinogen Ql (U) Normal mg/dl Normal [facility] THYROID BIOPSY RIGHT (POC ) SURG USE ONLYon 11-13-2022 [facility] DXA-AXIAL SKELETONon 022 [facility] US THYROID/PARATHYROIDon [facility] Office Visit: new annualon 1 05-29-2016 Documentation of current medications (procedure) Done Invalid Interpretation Code [facility] Documentation of current medications (procedure) T Invalid Interpretation Code [facility] Fall risk assessment No Invalid Interpretation Code [facility] Tobacco smoking status NHIS Never Invalid Interpretation Code [facility] Tobacco smoking status [facility] Tobacco smoking status [facility] Invalid Interpretation Code [facility] Tobacco use CPHS Never smoker Invalid Interpretation Code [facility] Vital Signs Date Time Vital Sign Value Performing Clinician Facility 01-01-2025 08:12-0400 Body mass index (BMI) [Ratio] 21.34 kg/m2 Makenna Roberts APRN.ISSUING OPERATOR Work Phone: [facility] 01-01-2025 08:12-0400 Body weight 56.4 kg Makenna Roberts APRN.ISSUING OPERATOR Work Phone: [facility] 01-01-2025 08:12-0400 Diastolic blood pressure 82 mm[Hg] Makenna Roberts APRN.ISSUING OPERATOR Work Phone: [facility] 01-01-2025 08:12-0400 Heart rate 71 /min Makenna Roberts APRN.ISSUING OPERATOR Work Phone: [facility] 01-01-2025 08:12-0400 Respiratory rate 16 /min Makenna Roberts SNATH HANDLE ASSEMBLER.ISSUING OPERATOR Work Phone: [facility] 01-01-2025 08:12-0400 SaO2% (BldA) [Mass fraction] 99 % Makenna Roberts SNATH HANDLE ASSEMBLER.ISSUING OPERATOR Work Phone: [facility] 01-01-2025 08:12-0400 Systolic blood pressure 122 mm[Hg] Makenna Roberts SNATH HANDLE ASSEMBLER.ISSUING OPERATOR Work Phone: [facility] 08-28-2023 07:38-0400 Body mass index (BMI) [Ratio] 21.46 kg/m2 Corina Yoli SNATH HANDLE ASSEMBLER.COMPUTER SYSTEMS SOFTWARE ENGINEER Work Phone: [facility] 08-28-2023 07:38-0400 Body weight 56.7 kg Corina Yoli SNATH HANDLE ASSEMBLER.COMPUTER SYSTEMS SOFTWARE ENGINEER Work Phone: [facility] 08-28-2023 07:38-0400 Diastolic blood pressure 78 mm[Hg] Corina Yoli SNATH HANDLE ASSEMBLER.COMPUTER SYSTEMS SOFTWARE ENGINEER Work Phone: [facility] 08-28-2023 07:38-0400 Heart rate 77 /min Corina Yoli SNATH HANDLE ASSEMBLER.COMPUTER SYSTEMS SOFTWARE ENGINEER Work Phone: [facility] 08-28-2023 07:38-0400 SaO2% (BldA) [Mass fraction] 97 % Corina Yoli SNATH HANDLE ASSEMBLER.COMPUTER SYSTEMS SOFTWARE ENGINEER Work Phone: [facility] 08-28-2023 07:38-0400 Systolic blood pressure 106 mm[Hg] Corina Yoli SNATH HANDLE ASSEMBLER.COMPUTER SYSTEMS SOFTWARE ENGINEER Work Phone: [facility] 08-20-2023 08:45-0400 Body height 162.[address] Nitza Treviño Work Phone: [facility] 08-20-2023 08:45-0400 Body mass index (BMI) [Ratio] 21.9 kg/m2 Dr. Nitza Treviño Work Phone: [facility] 08-20-2023 08:45-0400 Body temperature 97.8 [degF] Dr. Nitza Treviño Work Phone: [facility] 08-20-2023 08:45-0400 Body weight 58.[address] Nitza Treviño Work Phone: 8(501)207-438403 [place] [address] 08-20-2023 08:45-0400 Diastolic blood pressure 86 mm[Hg] Dr. Nitza Treviño Work Phone: 6(330)343-406353 [place] [address] 08-20-2023 08:45-0400 Heart rate 77 /min Dr. Nitza Treviño Work Phone: 5(511)732-023453 [place] [address] 08-20-2023 08:45-0400 Respiratory rate 16 /min Dr. Nitza Treviño Work Phone: 8(123)385-297653 [place] [address] 08-20-2023 08:45-0400 SaO2% (BldA) [Mass fraction] 98 % Dr. Nitza Treviño Work Phone: 9(942)025-892253 [place] [address] 08-20-2023 08:45-0400 Systolic blood pressure 122 mm[Hg] Dr. Nitza Treviño Work Phone: 2(416)326-303553 [place] [address] 06-21-2023 06:57-0500 Body temperature 97.5 [degF] Dr. Nitza Treviño Work Phone: 7(258)940-171953 [place] [address] 06-21-2023 06:57-0500 Diastolic blood pressure 74 mm[Hg] Dr. Nitza Treviño Work Phone: 5(482)629-494853 [place] [address] 06-21-2023 06:57-0500 Heart rate 89 /min Dr. Nitza Treviño Work Phone: 4(849)581-009803 [place] [address] 06-21-2023 06:57-0500 Respiratory rate 12 /min Dr. Nitza Treviño Work Phone: 1(699)900-673003 [place] [address] 06-21-2023 06:57-0500 SaO2% (BldA) [Mass fraction] 96 % Dr. Nitza Treviño Work Phone: 5(101)145-237353 [place] [address] 06-21-2023 06:57-0500 Systolic blood pressure 114 mm[Hg] Dr. Nitza Treviño Work Phone: 9(256)197-795353 [place] [address] 06-17-2023 08:25-0500 Body mass index (BMI) [Ratio] 21.7 kg/m2 Dr. Nitza Treviño Work Phone: 5(751)799-244553 [place] [address] 06-17-2023 08:25-0500 Body temperature 97.9 [degF] Dr. Nitza Treviño Work Phone: 4(935)516-235853 [place] [address] 06-17-2023 08:25-0500 Body weight 57.[address] Nitza Treviño Work Phone: 0(716)114-898653 [place] [address] 06-17-2023 08:25-0500 Diastolic blood pressure 60 mm[Hg] Dr. Nitza Treviño Work Phone: 2(011)868-393553 [place] [address] 06-17-2023 08:25-0500 Heart rate 93 /min Dr. Nitza Treviño Work Phone: 2(929)777-890353 [place] [address] 06-17-2023 08:25-0500 Respiratory rate 16 /min Dr. Nitza Treviño Work Phone: 0(067)924-397853 [place] [address] 06-17-2023 08:25-0500 SaO2% (BldA) [Mass fraction] 97 % Dr. Nitza Treviño Work Phone: 4(449)906-926853 [place] [address] 06-17-2023 08:25-0500 Systolic blood pressure 126 mm[Hg] Dr. Nitza Treviño Work Phone: 7(788)150-253053 [place] [address] 05-29-2023 08:50-0500 Body mass index (BMI) [Ratio] 21.7 kg/m2 Dr. Nitza Treviño Work Phone: 0(538)397-838353 [place] [address] 05-29-2023 08:50-0500 Body weight 57.[address] Nitza Treviño Work Phone: 5(899)930-815753 [place] [address] 05-29-2023 08:50-0500 Diastolic blood pressure 72 mm[Hg] Dr. Nitza Treviño Work Phone: 0(182)912-501353 [place] [address] 05-29-2023 08:50-0500 Systolic blood pressure 104 mm[Hg] Dr. Nitza Treviño Work Phone: [facility] 05-03-2023 15:19-0500 Body height 162.56 cm [facility] 05-03-2023 15:19-0500 Body mass index (BMI) [Ratio] 21.7 kg/m2 [facility] 05-03-2023 15:19-0500 Body temperature 96 [degF] [facility] 05-03-2023 15:19-0500 Body weight 57.28 kg [facility] 05-03-2023 15:19-0500 Diastolic blood pressure 85 mm[Hg] [facility] 05-03-2023 15:19-0500 Heart rate 72 /min [facility] 05-03-2023 15:19-0500 Respiratory rate 18 /min [facility] 05-03-2023 15:19-0500 SaO2% (BldA) [Mass fraction] 100 % [facility] 05-03-2023 15:19-0500 Systolic blood pressure 130 mm[Hg] [facility] 04-04-2023 22:39-0500 Diastolic blood pressure 68 mm[Hg] [facility] 04-04-2023 22:39-0500 Heart rate 69 /min [facility] 04-04-2023 22:39-0500 Systolic blood pressure 124 mm[Hg] [facility] 04-04-2023 21:39-0500 Body height 162.56 cm [facility] 04-04-2023 21:39-0500 Body mass index (BMI) [Ratio] 22.8 kg/m2 [facility] 04-04-2023 21:39-0500 Body temperature 97.2 [degF] [facility] 04-04-2023 21:39-0500 Body weight 60.32 kg [facility] 04-04-2023 21:39-0500 Respiratory rate 16 /min [facility] 04-04-2023 21:39-0500 SaO2% (BldA) [Mass fraction] 96 % [facility] 01-19-2023 13:39-0400 Body weight 59.42 kg Corina Kent APRN.CNP Work Phone: [facility] 01-19-2023 13:39-0400 Diastolic blood pressure 70 mm[Hg] Corina Yoli SNATH HANDLE ASSEMBLER.COMPUTER SYSTEMS SOFTWARE ENGINEER Work Phone: [facility] 01-19-2023 13:39-0400 Heart rate 70 /min Corina Yoli SNATH HANDLE ASSEMBLER.COMPUTER SYSTEMS SOFTWARE ENGINEER Work Phone: [facility] 01-19-2023 13:39-0400 SaO2% (BldA) [Mass fraction] 98 % Corina Yoli SNATH HANDLE ASSEMBLER.COMPUTER SYSTEMS SOFTWARE ENGINEER Work Phone: [facility] 01-19-2023 13:39-0400 Systolic blood pressure 100 mm[Hg] Corina Yloi SNATH HANDLE ASSEMBLER.COMPUTER SYSTEMS SOFTWARE ENGINEER Work Phone: [facility] 05-17-2022 09:12-0500 Body weight 57.15 kg Corina Yoli SNATH HANDLE ASSEMBLER.COMPUTER SYSTEMS SOFTWARE ENGINEER Work Phone: [facility] 05-17-2022 09:12-0500 Diastolic blood pressure 76 mm[Hg] Corina Yoli SNATH HANDLE ASSEMBLER.COMPUTER SYSTEMS SOFTWARE ENGINEER Work Phone: [facility] 05-17-2022 09:12-0500 Heart rate 90 /min Corina Yoli SNATH HANDLE ASSEMBLER.COMPUTER SYSTEMS SOFTWARE ENGINEER Work Phone: [facility] 05-17-2022 09:12-0500 SaO2% (BldA) [Mass fraction] 98 % Corina Yoli SNATH HANDLE ASSEMBLER.COMPUTER SYSTEMS SOFTWARE ENGINEER Work Phone: [facility] 05-17-2022 09:12-0500 Systolic blood pressure 110 mm[Hg] Corina Yoli SNATH HANDLE ASSEMBLER.COMPUTER SYSTEMS SOFTWARE ENGINEER Work Phone: [facility] 03-29-2017 11:09-0500 BMI (Body Mass Index) 20.45 kg/m2 Tiffany Parnell NP [facility] 03-29-2017 11:09-0500 BP Diastolic 78 mm[Hg] Tiffany Parnell NP [facility] 03-29-2017 11:09-0500 BP Systolic 120 mm[Hg] Tiffany Parnell NP [facility] 03-29-2017 11:09-0500 Height 163.83 cm Tiffany Parnell NP [facility] 03-29-2017 11:050 Weight 54.89 kg Tiffany Soheila MACHINIST [employer] [facility] 03-29-2017 11:0500 Weight 54.88 kg Tiffany Soheila MACHINIST [employer] [facility] Encounters Encounter Date Encounter Type Care Provider Facility Start: 02-13-2025 ambulatory Nitza Treviño Facilit y:[facility] Start: 01-01-2025 End: 01-01-2025 Office outpatient visit 25 minutes Makenna Roberts APRN.ISSUING OPERATOR Work Phone: [facility] [place] Comment on above: Hypothyroidism due t o Jan thyroiditis (Primary Dx); Allergic rhinitis, unspecified seasonality, unspecified trigger; Glossitis; Adverse effect of other nonsteroidal anti-inflammatory drugs (NSAID), initial encounter; Vitamin D deficiency Start: 01-01-2025 End: 01-01-2025 ambulatory MAKENNA ROBERTS Facility:[facility] Start: 06-03-2024 End: 06-03-2024 ambulatory Nitza Treviño Facility:[facility] Start: 03-12-2024 End: 03-17-2024 ambulatory Nitza Treviño MD Work Phone: [facility] Start: 02-21-2024 End: 02-25-2024 ambulatory Michelle Jonesate [facility] Start: 02-21-2024 End: 02-25-2024 Patient encounter procedure Michelle Nath MA [facility] [facility] Comment on above: Population Health Na vigation Outreach [facility] Start: 02-13-2024 End: 02-13-2024 ambulatory Nitza Maggie Treviño Facility:[facility] Start: 01-28-2024 End: 01-29-2024 ambulatory Corina Kent APRN.COMPUTER SYSTEMS SOFTWARE ENGINEER Work Phone: [facility] [place] Comment on above: Results Start: 01-28-2024 End: 01-29-2024 E-mail encounter from caregiver Corina Kent APRN.COMPUTER SYSTEMS SOFTWARE ENGINEER Work Phone: [facility] [place] Start: 01-23-2024 End: 01-23-2024 ambulatory CORINA KENT Facility:[facility] Start: 08-31-2023 ambulatory Corina Yoli SNATH HANDLE ASSEMBLER.COMPUTER SYSTEMS SOFTWARE ENGINEER Work Phone: [facility] [place] Comment on above: Results Start: 08-31-2023 E-mail encounter fro m caregiver Corina Yoli SNATH HANDLE ASSEMBLER.COMPUTER SYSTEMS SOFTWARE ENGINEER Work Phone: [facility] [place] Start: 08-28-2023 End: 08-28-2023 Patient encounter procedure Corina Kent APRN.COMPUTER SYSTEMS SOFTWARE ENGINEER Work Phone: [facility] [place] Comment on above: Lymphadenitis, acute (Primary Dx); 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; Thyroid nodule; Vitamin D deficiency; Encounter for therapeutic drug monitoring Start: 08-20-2023 End: 08-20-2023 Emergency department patient visit Dr. [facility]itza [facility] Start: 06-21-2023 End: 06-21-[address] Nitza Treviño Work Phone: [facility] Work Phone: Start: 06-17-2023 End: 06-17-[address] Nitza Treviño Work Phone: [facility] Work Phone: Start: 05-29-2023 End: 05-29-[address] Nitza Treviño Work Phone: [facility] Work Phone: Start: 05-03-2023 End: 05-03-2023 Emergency department patient visit [facility] Work Phone: Start: 04-04-2023 End: 04-04-2023 Emergency department patient visit [facility] Work Phone: Start: 02-09-2023 ambulatory Corina Yoli SNATH HANDLE ASSEMBLER.COMPUTER SYSTEMS SOFTWARE ENGINEER Work Phone: [facility] [place] Comment on above: Results Start: 02-09-2023 E-mail encounter fro m caregiver Corina Kent APRN.COMPUTER SYSTEMS SOFTWARE ENGINEER Work Phone: [facility] Start: 01-29-2023 End: 01-29-2023 Patient encounter procedure [facility] Work Phone: Start: 01-19-2023 End: 01-19-2023 Patient encounter procedure Corina Kent APRN.COMPUTER SYSTEMS SOFTWARE ENGINEER Work Phone: [facility] [place] Comment on above: Hypothyroidism due t o 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 (Primary Dx); Thyroid nodule; Vitamin D deficiency; Encounter for therapeutic drug monitoring Start: 12-20-2022 ambulatory Nitza echavarria MD Work Phone: Internal [facility] Comment on above: Derm Problem Start: 11-14-2022 End: 11-14-2022 ambulatory [facility] Work Phone: Start: 11-14-2022 End: 11-14-2022 Patient encounter procedure [facility]-Laboratory, Specimen Work Phone: Start: 11-13-2022 End: 11-13-2022 Patient encounter procedure Kasey Go MD Work Phone: General Surgery Comment on above: Abnormal ultrasound of thyroid gland (Primary Dx) Start: 10-17-2022 Telephone encounter Corina newton APRN.COMPUTER SYSTEMS SOFTWARE ENGINEER Work Phone: [facility] Comment on above: Results Start: 05-17-2022 Telephone encounter Nitza may MD Work Phone: Internal [facility] Comment on above: Medication Problem Start: 05-17-2022 End: 05-17-2022 Patient encounter procedure Corina Kent APRN.COMPUTER SYSTEMS SOFTWARE ENGINEER Work Phone: Internal [facility] Comment on above: Osteopenia, unspecif ied location (Primary Dx); Vitamin D deficiency; Thyroid nodule; 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; Dyspepsia; Encounter for therapeutic drug monitoring Start: 01-27-2022 End: 01-27-2022 ambulatory [facility] Work Phone: Start: 01-27-2022 End: 01-27-2022 Patient encounter procedure [facility] Start: 12-14-2021 Telephone encounter Nitza may MD Work Phone: [facility] [place] Comment on above: Results Start: 10-10-2021 End: 10-10-2021 Subsequent hospital visit by physician Bone Density [facility] Work Phone: Radiology Comment on above: Asymptomatic postmen opausal status [Z78.0] Start: 09-28-2021 End: 09-28-2021 Subsequent hospital visit by physician Us [facility] Work Phone: Radiology Comment on above: Enlarged thyroid [E0 4.9] Start: 09-21-2021 ambulatory Nitza echavarria MD Work Phone: [facility] [place] Procedures Date Procedure Procedure Detail Performing Clinician Start: 01-29-2023 Screening mammography Start: 11-13-2022 US THYROID BIOPSY RI GHT (POC) SURG USE ONLY Kasey Go MD Work Phone: Start: 01-27-2022 End: 01-27-2022 Screening mammography Start: 10-10-2021 Dxa bone density martha dy 1/> sites axial skel Nitza Treviño MD Work Phone: Start: 09-28-2021 Us soft tissue head & neck real time imge docm Nitza Treviño MD Work Phone: Start: 09-20-2021 Adult depression scr eening assessment Nitza Treviño MD Work Phone: Start: 09-20-2021 Lipid 1996 panel - S lesley or Plasma Corina Kent APRN.CNP Work Phone: Plan of Treatment Date Care Activity Detail Author Start: 04-04-2033 Urine microalbumin profile DTaP,Tdap,Td Vaccine (3 - Td or Tdap) [facility] Start: 12-04-2030 RSV Vaccine (1 - 1-d ose 75+ series) RSV Vaccine (1 - 1-dose 75+ series) [facility] Start: 09-20-2026 Lipid 1996 panel - S lesley or Plasma Lipid Screening [facility] Start: 09-20-2026 Lipid panel Lipid Screening [facility] Start: 09-20-2026 LIPID SCREEN LIPID SCREEN [facility] Start: 08-29-2026 Diabetes Screening Diabetes Screenin g [facility] Start: 02-07-2026 Diabetes Screening Diabetes Screenin g [facility] Start: 01-01-2026 Annual PCP Team Hydraulic Design Engineer kip Disease Visit Annual PCP Team Chronic Disease Visit [facility] Start: 07-17-2025 End: 07-17-2025 Patient encounter procedure 07/17/2025 8:40 AM EDT Office Visit [facility] [place] [address] [place] [id number] Nitza Treviño MD [address] [place] [id number] Annual physical Internal Medicine [facility] Comment on above: Annual physical Start: 07-14-2025 DIABETES SCREEN DIABETES SCREEN [facility] Start: 07-14-2025 Diabetes Screening Diabetes Screenin g [facility] Start: 03-29-2025 DIABETES SCREEN DIABETES SCREEN [facility] Start: 01-01-2025 End: 04-02-2025 Thyrotropin [Units/volume] in Serum or Plasma THYROID STIMULATING HORMONE Lab Routine Hypothyroidism due to Jan thyroiditis Expected: 01/01/2025, Expires: 04/02/2025 [facility] Work Phone: Comment on above: Expected: 01/01/2025 , Expires: 04/02/2025 Start: 01-01-2025 End: 04-02-2025 Thyroxine (T4) free [Mass/volume] in Serum or Plasma T4 FREE/FREE THYROXINE Lab Routine Hypothyroidism due to Jan thyroiditis Expected: 01/01/2025, Expires: 04/02/2025 [facility] Comment on above: Expected: 01/01/2025 , Expires: 04/02/2025 Start: 01-01-2025 End: 04-02-2025 Triiodothyronine (T3) Free [Mass/volume] in Serum or Plasma T3, FREE Lab Routine Hypothyroidism due to Jan thyroiditis Expected: 01/01/2025, Expires: 04/02/2025 [facility] Comment on above: Expected: 01/01/2025 , Expires: 04/02/2025 Start: 12-29-2024 Influenza vaccination Influenza Vacc ine (#1) [facility] Start: 10-05-2024 COLOGUARD (FIT-DNA) COLOGUARD (FIT-D NA) [facility] Start: 10-05-2024 COLORECTAL CANCER SCREENING COLORECTAL CANCER SCREENING [facility] Start: 10-05-2024 Screening for malign ant neoplasm of colon [facility] Start: 09-20-2024 DIABETES SCREEN DIABETES SCREEN [facility] Start: 08-27-2024 Annual PCP Team Hydraulic Design Engineer kip Disease Visit Annual PCP Team Chronic Disease Visit [facility] Start: 04-30-2024 Advance Directive Discussion Advance Directive Discussion [facility] Start: 04-30-2024 Medicare Advantage A nnual Wellness Visit Medicare Advantage Annual Wellness Visit [facility] Start: 01-30-2024 Mammography Mammogram Screening [facility] Start: 01-30-2024 Screening for malign ant neoplasm of breast Mammogram Screening [facility] Start: 01-20-2024 Annual PCP Team Hydraulic Design Engineer kip Disease Visit Annual PCP Team Chronic Disease Visit [facility] Start: 12-30-2023 Covid-19 Vaccine ( season) Covid-19 Vaccine () [facility] Start: 12-30-2023 Influenza vaccination C [facility] Start: 12-21-2023 ANNUAL PCP TEAM DIRECTOR OF LITIGATION KIP DISEASE VISIT ANNUAL PCP TEAM CHRONIC DISEASE VISIT [facility] Start: 11-01-2023 Urine microalbumin profile [facility] Start: 10-30-2023 End: 01-29-2024 25-hydroxyvitamin D3 [Mass/volume] in Serum or Plasma VITAMIN D 25 HYDROXY Lab Routine Vitamin D deficiency Expected: 10/30/2023, Expires: 01/29/2024 [facility] Comment on above: Expected: 10/30/2023 , Expires: 01/29/2024 Start: 10-30-2023 End: 01-29-2024 THYROID PEROXIDASE ANTIBODY THYROID PEROXIDASE ANTIBODY Lab Routine 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 Expected: 10/30/2023, Expires: 01/29/2024 [facility] Comment on above: Expected: 10/30/2023 , Expires: 01/29/2024 Start: 10-30-2023 End: 01-29-2024 Thyrotropin [Units/volume] in Serum or Plasma THYROID STIMULATING HORMONE Lab Routine 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 Expected: 10/30/2023, Expires: 01/29/2024 [facility] Work Phone: Comment on above: Expected: 10/30/2023 , Expires: 01/29/2024 Start: 10-30-2023 End: 01-29-2024 Thyroxine (T4) free [Mass/volume] in Serum or Plasma T4 FREE/FREE THYROXINE Lab Routine 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 Expected: 10/30/2023, Expires: 01/29/2024 [facility] Comment on above: Expected: 10/30/2023 , Expires: 01/29/2024 Start: 10-30-2023 End: 01-29-2024 Triiodothyronine (T3) Free [Mass/volume] in Serum or Plasma T3, FREE Lab Routine 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 Expected: 10/30/2023, Expires: 01/29/2024 [facility] Comment on above: Expected: 10/30/2023 , Expires: 01/29/2024 Start: 09-16-2023 ANNUAL PCP TEAM DIRECTOR OF LITIGATION KIP DISEASE VISIT ANNUAL PCP TEAM CHRONIC DISEASE VISIT [facility] Start: 08-28-2023 End: 11-27-2023 25-hydroxyvitamin D3 [Mass/volume] in Serum or Plasma VITAMIN D 25 HYDROXY Lab Routine Vitamin D deficiency Expected: 08/28/2023, Expires: 11/27/2023 [facility] Comment on above: Expected: 08/28/2023 , Expires: 11/27/2023 Start: 08-28-2023 End: 11-27-2023 CBC W Auto Differential panel - Blood COMPLETE BLOOD COUNT AND DIFFERENTIAL Lab Routine Encounter for therapeutic drug monitoring Expected: 08/28/2023, Expires: 11/27/2023 [facility] Comment on above: Expected: 08/28/2023 , Expires: 11/27/2023 Start: 08-28-2023 End: 11-27-2023 Comprehensive metabolic 2000 panel - Serum or Plasma COMPREHENSIVE METABOLIC PANEL Lab Routine Encounter for therapeutic drug monitoring Expected: 08/28/2023, Expires: 11/27/2023 [facility] Comment on above: Expected: 08/28/2023 , Expires: 11/27/2023 Start: 08-28-2023 End: 11-27-2023 THYROID PEROXIDASE ANTIBODY THYROID PEROXIDASE ANTIBODY Lab Routine 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 Thyroid nodule Expected: 08/28/2023, Expires: 11/27/2023 [facility] Comment on above: Expected: 08/28/2023 , Expires: 11/27/2023 Start: 08-28-2023 End: 11-27-2023 Thyrotropin [Units/volume] in Serum or Plasma THYROID STIMULATING HORMONE Lab Routine 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 Thyroid nodule Encounter for therapeutic drug monitoring Expected: 08/28/2023, Expires: 11/27/2023 [facility] Comment on above: Expected: 08/28/2023 , Expires: 11/27/2023 Start: 08-28-2023 End: 11-27-2023 Thyroxine (T4) free [Mass/volume] in Serum or Plasma T4 FREE/FREE THYROXINE Lab Routine 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 Thyroid nodule Encounter for therapeutic drug monitoring Expected: 08/28/2023, Expires: 11/27/2023 [facility] Comment on above: Expected: 08/28/2023 , Expires: 11/27/2023 Start: 08-28-2023 End: 11-27-2023 Triiodothyronine (T3) Free [Mass/volume] in Serum or Plasma T3, FREE Lab Routine 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 Thyroid nodule Encounter for therapeutic drug monitoring Expected: 08/28/2023, Expires: 11/27/2023 [facility] Comment on above: Expected: 08/28/2023 , Expires: 11/27/2023 Start: 08-20-2023 [facility] Start: 05-17-2023 ANNUAL PCP TEAM DIRECTOR OF LITIGATION KIP DISEASE VISIT ANNUAL PCP TEAM CHRONIC DISEASE VISIT [facility] Start: 05-03-2023 [facility] Start: 04-30-2023 Behavioral Health Screening Behavioral Health Screening [facility] Start: 04-04-2023 [facility] Start: 04-04-2023 Simple repair scalp/neck/ax/genit/trunk 2.5cm/< RPR S/N/AX/GEN/TRNK 2.5CM/< [facility] Start: 01-27-2023 [facility] Start: 01-22-2023 End: 03-24-2023 25-hydroxyvitamin D3 [Mass/volume] in Serum or Plasma VITAMIN D 25 HYDROXY Lab Routine Vitamin D deficiency Expected: 01/22/2023, Expires: 03/24/2023 [facility] Work Phone: Comment on above: Expected: 01/22/2023 , Expires: 03/24/2023 Start: 01-22-2023 End: 03-24-2023 CBC W Auto Differential panel - Blood CBC + DIFF Lab Routine Encounter for therapeutic drug monitoring Expected: 01/22/2023, Expires: 03/24/2023 [facility] Work Phone: Comment on above: Expected: 01/22/2023 , Expires: 03/24/2023 Start: 01-22-2023 End: 03-24-2023 Comprehensive metabolic 2000 panel - Serum or Plasma COMP METABOLIC PANEL Lab Routine Encounter for therapeutic drug monitoring Expected: 01/22/2023, Expires: 03/24/2023 [facility] Work Phone: Comment on above: Expected: 01/22/2023 , Expires: 03/24/2023 Start: 01-22-2023 End: 03-24-2023 THYROID PEROXIDASE ANTIBODY BLOOD THYROID PEROXIDASE ANTIBODY BLOOD Lab Routine 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 Thyroid nodule Encounter for therapeutic drug monitoring Expected: 01/22/2023, Expires: 03/24/2023 [facility] Work Phone: Comment on above: Expected: 01/22/2023 , Expires: 03/24/2023 Start: 01-22-2023 End: 03-24-2023 Thyrotropin [Units/volume] in Serum or Plasma TSH BLD Lab Routine 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 Thyroid nodule Encounter for therapeutic drug monitoring Expected: 01/22/2023, Expires: 03/24/2023 [facility] Work Phone: Comment on above: Expected: 01/22/2023 , Expires: 03/24/2023 Start: 01-22-2023 End: 03-24-2023 Thyroxine (T4) free [Mass/volume] in Serum or Plasma T4 FREE/FREE THYROX Lab Routine 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 Thyroid nodule Encounter for therapeutic drug monitoring Expected: 01/22/2023, Expires: 03/24/2023 [facility] Work Phone: Comment on above: Expected: 01/22/2023 , Expires: 03/24/2023 Start: 01-22-2023 End: 03-24-2023 Triiodothyronine (T3) Free [Mass/volume] in Serum or Plasma T3 FREE BLD Lab Routine 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 Thyroid nodule Encounter for therapeutic drug monitoring Expected: 01/22/2023, Expires: 03/24/2023 [facility] Work Phone: Comment on above: Expected: 01/22/2023 , Expires: 03/24/2023 Start: 12-29-2022 Covid-19 Vaccine ( season) Covid-19 Vaccine ( season) [facility] Start: 12-29-2022 Influenza vaccination C [facility] Start: 10-27-2022 Influenza vaccination INFLUENZA (#1) [facility] Comment on above: Postponed from 12/29 (Declined at this time) Start: 09-20-2022 Adult depression screening assessment DEPRESSION SCREENING [facility] Start: 09-20-2022 PNEUMOCOCCAL: 65+ (1 - PCV) PNEUMOCOCCAL: 65+ (1 - PCV) [facility] Comment on above: Postponed from 12/04 (Declined at this time) Start: 09-20-2022 SHINGRIX VACCINE (1 of 2) JIMENES GRIX VACCINE (1 of 2) [facility] Comment on above: Postponed from 12/04 (Declined at this time) Start: 05-17-2022 End: 07-17-2022 25-hydroxyvitamin D3 [Mass/volume] in Serum or Plasma VITAMIN D 25 HYDROXY Lab Routine Vitamin D deficiency Expected: 05/17/2022, Expires: 07/17/2022 [facility] Work Phone: Comment on above: Expected: 05/17/2022 , Expires: 07/17/2022 Start: 05-17-2022 End: 07-17-2022 Basic metabolic 2000 panel - Serum or Plasma BASIC METABOLIC PNL Lab Routine Encounter for therapeutic drug monitoring Expected: 05/17/2022, Expires: 07/17/2022 [facility] Work Phone: Comment on above: Expected: 05/17/2022 , Expires: 07/17/2022 Start: 05-17-2022 End: 07-17-2022 CBC W Auto Differential panel - Blood CBC + DIFF Lab Routine Encounter for therapeutic drug monitoring Expected: 05/17/2022, Expires: 07/17/2022 [facility] Work Phone: Comment on above: Expected: 05/17/2022 , Expires: 07/17/2022 Start: 05-17-2022 End: 07-17-2022 Parathyrin.intact [Mass/volume] in Serum or Plasma PTH INTACT BLD Lab Routine Osteopenia, unspecified location Expected: 05/17/2022, Expires: 07/17/2022 [facility] Work Phone: Comment on above: Expected: 05/17/2022 , Expires: 07/17/2022 Start: 04-30-2022 ADVANCE DIRECTIVE DISCUSSION ADVANCE DIRECTIVE DISCUSSION [facility] Start: 12-29-2021 Influenza vaccination C [facility] Start: 08-18-2021 COVID-19 VACCINE (4 - Booster for Moderna series) COVID-19 VACCINE (4 - Booster for Moderna series) [facility] Start: 06-14-2021 COVID-19 VACCINE (4 - Booster for Moderna series) COVID-19 VACCINE (4 - Booster for Moderna series) [facility] Start: 06-14-2021 COVID-19 VACCINE (4 - Moderna series) COVID-19 VACCINE (4 - Moderna series) [facility] Start: 12-04-2020 BONE DENSITY BONE DENSITY [facility] Start: 12-04-2020 Pneumococcal Vaccine : 65+ (1 - PCV) Pneumococcal Vaccine: 65+ (1 - PCV) [facility] Start: 12-04-2020 Pneumococcal Vaccine : 65+ (1 of 1 - PCV) Pneumococcal Vaccine: 65+ (1 of 1 - PCV) [facility] Start: 12-04-2020 PNEUMOCOCCAL: 65+ (1 - PCV) PNEUMOCOCCAL: 65+ (1 - PCV) [facility] Start: 03-29-2017 End: 03-29-2017 Mammogram, screening Mammogram, Screening, both breasts [facility] Start: 03-29-2017 End: 03-29-2017 Surgery Referral Surgery Referral [facility] Start: 03-29-2017 End: 03-29-[address] [facility] Start: 2015 RSV Vaccine (1 - 1-d ose 60+ series) RSV Vaccine (1 - 1-dose 60+ series) [facility] Start: 12-04-2005 Pneumococcal Vaccine : 50+ (1 of 1 - PCV) Pneumococcal Vaccine: 50+ (1 of 1 - PCV) [facility] Start: 12-04-2005 SHINGRIX VACCINE (1 of 2) JIMENES GRIX VACCINE (1 of 2) [facility] Start: 12-04-2000 COLOGUARD (FIT-DNA) COLOGUARD (FIT-D NA) [facility] Start: 12-04-2000 Colonoscopy COLONOSCOPY [facility] Start: 12-04-2000 COLORECTAL CANCER SCREENING COLORECTAL CANCER SCREENING [facility] Start: 12-04-[address] COLONOGRAPHY [facility] Start: 12-04-2000 FECAL OCCULT BLOOD FECAL OCCULT BLOO D [facility] Start: 12-04-2000 Screening for malign ant neoplasm of colon [facility] Start: 12-04-2000 [facility] Start: 1995 Mammography MAMMOGRAM [facility] Start: 12-04-1973 Anxiety Screening Anxiety Screening [facility] Start: 12-04-1973 Depression Screening Depression Scre ening [facility] End: 04-11-2025 DBT Breast - bilateral screening ALESSANDRA SCREENING W MICHELLE Radiology Routine Encounter for screening mammogram for breast cancer 1 Occurrences starting 03/12/2024 until 04/11/2025 [facility] Work Phone: Comment on above: 1 Occurrences starti ng 03/12/2024 until 04/11/2025 MG Breast - bilatera l Screening [facility] Patient Education [facility] Work Phone: Patient referral [facility] Work Phone: End: 10-21-2022 Screening mammography bi 2-view breast inc cad ALESSANDRA SCREENING Radiology Routine Encounter for screening mammogram for breast cancer 1 Occurrences starting 09/21/2021 until 10/21/2022 [facility] Work Phone: Comment on above: 1 Occurrences starti ng 09/21/2021 until 10/21/2022 End: 09-26-2024 US Thyroid gland US THYROID/PARATHYROID Radiology Routine 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COMPUTER SYSTEMS SOFTWARE ENGINEER Work Phone: [facility] Work Phone: 01-13-2015 influenza virus vaccine, unspecified formulation Corina Yoli SNATH HANDLE ASSEMBLER.COMPUTER SYSTEMS SOFTWARE ENGINEER Work Phone: [facility] 04-08-2014 influenza, injectabl e, quadrivalent, preservative free Corina Yoli SNATH HANDLE ASSEMBLER.COMPUTER SYSTEMS SOFTWARE ENGINEER Work Phone: [facility] Work Phone: 10-31-2013 tetanus toxoid, redu maryuri diphtheria toxoid, and acellular pertussis vaccine, adsorbed Nitza Treviño MD Work Phone: [facility] Work Phone: 02-14-2013 hepatitis B vaccine, adult dosage Corina Yoli SNATH HANDLE ASSEMBLER.COMPUTER SYSTEMS SOFTWARE ENGINEER Work Phone: [facility] Work Phone: 09-18-2012 hepatitis B vaccine, adult dosage Corina Yoli SNATH HANDLE ASSEMBLER.COMPUTER SYSTEMS SOFTWARE ENGINEER Work Phone: [facility] Work Phone: 08-19-2012 hepatitis B vaccine, adult dosage Corina Yoli SNATH HANDLE ASSEMBLER.COMPUTER SYSTEMS SOFTWARE ENGINEER Work Phone: [facility] Work Phone: 05-03-2012 influenza virus vaccine, whole virus Corina Yoli SNATH HANDLE ASSEMBLER.COMPUTER SYSTEMS SOFTWARE ENGINEER Work Phone: [facility] Work Phone: 10-24-1999 poliovirus vaccine, inactivated Corina Yoli SNATH HANDLE ASSEMBLER.COMPUTER SYSTEMS SOFTWARE ENGINEER Work Phone: [facility] Work Phone: Payers Date Payer Category Payer Self-pay [id number] 2022 Medicare (Managed Care) [facility] O [id number] 2022 Unknown [id number] 2022 Medicare [id number] 2018 Unknown MMO MMO [employer] [id number] 2018-Present [phone] [address] [place] [address] PPO [id number] 2018 Unknown [id number] 2011 Unknown [facility] [id number] Unknown AARP MCR ADV [id number] Unknown [id number] Unknown [id number] Unknown [id number] Social History Date Type Detail Facility Start: 09-20-2021 End: 05-17-2022 Tobacco smoking status NHIS Never smoked tobacco [facility] Start: 09-20-2021 End: 01-01-2025 Alcohol intake Current non-drinker of alcohol (finding) [facility] Start: 09-17-2021 End: 05-10-2022 History SDOH Alcohol Frequency 1 [facility] Start: 09-17-2021 End: 05-10-2022 History SDOH Social Connections Phone 5 [facility] Start: 09-17-2021 End: 05-10-2022 History SDOH Social Connections Muslim 3 [facility] Start: 09-17-2021 End: 05-10-2022 History SDOH Social Connections Living 7 [facility] Start: 09-17-2021 End: 05-10-2022 History SDOH Stress 2 [facility] Start: 1955 Sex Assigned At Female [facility] Start: 09-10-2021 End: 09-20-2021 Exposure to SARS-CoV-2 (event) Not sure [facility] Start: 09-20-2021 End: 05-17-2022 Tobacco use and exposure Smokeless tobacco non-user [facility] Start: 05-11-2021 End: 08-20-2023 Tobacco smoking status NHIS Unknown if ever smoked [facility] Start: 05-10-2022 History SDOH Alcohol Std Drinks 0 [facility] Start: 05-10-2022 End: 09-15-2022 History of Social function [facility] Start: 05-10-2022 End: 09-15-2022 Social connection and isolation panel [facility] Do you belong to any clubs or organizations such as methodist groups, unions, fraternal or athletic groups, or school groups? Yes [facility] Are you now , , , , never or living with a partner? Never [facility] Start: 03-31-2012 Frequency of Alcohol Consumption Not on file [facility] How often do you hav e 6 or more drinks on 1 occasion? Never [facility] Do you feel stress - tense, restless, nervous, or anxious, or unable to sleep at night because your mind is troubled all the time - these days [OSQ] Only a little [facility] (I/We) worried wheth er (my/our) food would run out before (I/we) got money to buy more. Never true [facility] In the past 12 month s, was there a time when you were not able to pay the mortgage or rent on time? No [facility] Start: 09-17-2021 Gender identity Identifies as female gender (finding) [facility] Start: 09-17-2021 Sexual orientation Heterosexual (finding) [facility] How hard is it for y ou to pay for the very basics like food, housing, medical care, and heating Not very hard [facility] Do you feel stress - tense, restless, nervous, or anxious, or unable to sleep at night because your mind is troubled all the time - these days [OSQ] Not at all [facility] Mental Status Date Assessment Result Facility 08-20-2023 Cognitive function Level Of Cons ciousness Awake;Alert;Appropriate;Follow s Commands [facility] Work Phone: 05-03-2023 Cognitive function Level Of Cons ciousness Awake;Alert;Appropriate;Follow s Commands [facility] Work Phone: Clinical Notes 10-10-2021 to 01-01-2025 Makenna Roberts APRN.ISSUING OPERATOR - 01/01/2025 8:37 AM Michelle Wallace MA - 02/21/2024 1:24 PM Corina Shrestha APRN.COMPUTER SYSTEMS SOFTWARE ENGINEER - 08/28/2023 7:42 AM EDT Note Date & Type Note Facility 01-01-2025 Note HNO ID: [id number] Author: MAKENNA ROBERTS APRN.ISSUING OPERATOR Service: ? Author Type: Nurse Specialist Type: Progress Notes Filed: 01/01/2025 09:06 Note Text: Subjective Patient ID: Jamari is a 69 year old female who presents for Thyroid Problem (thyroid problem getting worse and unable to take pills due to gastric upset) and tongue (scalloped but getting better. Related to Hasimoto thyroiditis). HPI The patient is a 69-year-old female with Jan?s thyroiditis, presenting for evaluation of tongue pain and swelling and for thyroid function testing. Tongue Swelling and Pain: - Onset: Sunday. - Initial presentation: Pain and redness at the tip of the tongue, no open sores noted. - Aggravated by contact with teeth. - Associated symptoms: Sore throat and tingling sensation in the tongue. - Noticed swelling and a "wavy" appearance of the tongue. - Applied ice to the tongue, which alleviated the pain. - Jamari denies current pain; swelling has decreased. Present for 5 days, improving. Jan's Thyroiditis: - Jamari was diagnosed with 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. - Concerns about potential thyroid-related causes for tongue swelling. - Previous adverse reaction to levothyroxine, including headaches, palpitations, insomnia, and irritability. - Jamari reports consistently high TSH levels; most recent T3 and T4 levels were below normal. - Jamari has not had thyroid levels checked recently due to insurance billing issues. Review of chart shows no recent prescription levothyroxine Medication Sensitivity: - Jamari reports hypersensitivity to medications, including NSAIDs and vitamins. - Experiences abdominal pain radiating to the neck and back with any oral medication or vitamin intake. - Pain described as "tightness" across the abdomen, leading to severe discomfort. - Jamari has not undergone endoscopy. - Uses Maalox every 4-5 days and Gas-X at bedtime, which provides some relief. - Previous use of vitamin D resulted in insomnia and disrupted sleep patterns; discontinued use after several weeks of poor sleep. Objective BP 122/82 Pulse 71 Resp 16 Wt 56.4 kg (124 lb 5.4 oz) LMP (LMP Unknown) SpO2 99% BMI 21.34 kg/m? Physical Exam Vitals and nursing note reviewed. Constitutional: Appearance: Normal appearance. HENT: Head: Normocephalic and atraumatic. Mouth/Throat: Lips: [place]. Mouth: Mucous membranes are moist. Pharynx: Oropharynx is clear. Tonsils: No tonsillar exudate. Comments: No current scalloping, tongue is clear Eyes: Conjunctiva/sclera: Conjunctivae normal. Cardiovascular: Rate and Rhythm: Normal rate. Pulmonary: Effort: Pulmonary effort is normal. Skin: General: Skin is warm and dry. Neurological: General: No focal deficit present. Mental Status: She is alert and oriented to person, place, and time. 1. 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 - Order TSH, free T3, and free T4 labs. - Discussed importance of regular thyroid monitoring and management options if levels are abnormal. 2. Allergic rhinitis, unspecified seasonality, unspecified trigger (J30.9) - Symptoms currently mild and attributed to recent gardening. 3. Glossitis (K14.0) - Acute onset of tongue pain and swelling began Sunday; improved with ice application. - No current pain or swelling on exam. 4. Adverse effect of other nonsteroidal anti-inflammatory drugs (NSAID), initial encounter (T39.395A) - History of significant GI sensitivity to NSAIDs and other medications. - Advised continuation of Gas-X as needed for gas relief. 5. Vitamin D deficiency (E55.9) - History of adverse reaction to vitamin D supplementation. She reports prior difficulty with levothyroxine, sounds like her dose of medication may have been too high. Reports concern about taking medication if needed. She reports sensitivity to medications and vitamins. Reports vitamin D caused insomnia. Notes GI upset and left-sided abdominal pain with bloating with medications, no prior EGD. Has been taking Gas-X and Maalox for GI upset with relief. Makenna Roberts APRN.ISSUING OPERATOR Medical Decision Making: Problems: Low: Acute, uncomplicated illness or injury Data: Unique test(s) ordered: 3+ Risk: Moderate: Drug management Medical Decision Making Level: 4 - Moderate [facility] 01-01-2025 History of Present illness Narrative Subjective Patient ID: Jamari is a 69 year old female who presents for Thyroid Problem (thyroid problem getting worse and unable to take pills due to gastric upset) and tongue (scalloped but getting better. Related to Hasimoto thyroiditis). HPI The patient is a 69-year-old female with Jan s thyroiditis, presenting for evaluation of tongue pain and swelling and for thyroid function testing. Tongue Swelling and Pain: - Onset: Sunday. - Initial presentation: Pain and redness at the tip of the tongue, no open sores noted. - Aggravated by contact with teeth. - Associated symptoms: Sore throat and tingling sensation in the tongue. - Noticed swelling and a "wavy" appearance of the tongue. - Applied ice to the tongue, which alleviated the pain. - Jamari denies current pain; swelling has decreased. Present for 5 days, improving. Jan's Thyroiditis: - Jamari was diagnosed with 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. - Concerns about potential thyroid-related causes for tongue swelling. - Previous adverse reaction to levothyroxine, including headaches, palpitations, insomnia, and irritability. - Jamari reports consistently high TSH levels; most recent T3 and T4 levels were below normal. - Jamari has not had thyroid levels checked recently due to insurance billing issues. Review of chart shows no recent prescription levothyroxine Medication Sensitivity: - Jamari reports hypersensitivity to medications, including NSAIDs and vitamins. - Experiences abdominal pain radiating to the neck and back with any oral medication or vitamin intake. - Pain described as "tightness" across the abdomen, leading to severe discomfort. - Jamari has not undergone endoscopy. - Uses Maalox every 4-5 days and Gas-X at bedtime, which provides some relief. - Previous use of vitamin D resulted in insomnia and disrupted sleep patterns; discontinued use after several weeks of poor sleep. Objective BP 122/82 Pulse 71 Resp 16 Wt 56.4 kg (124 lb 5.4 oz) LMP (LMP Unknown) SpO2 99% BMI 21.34 kg/m Physical Exam Vitals and nursing note reviewed. Constitutional: Appearance: Normal appearance. HENT: Head: Normocephalic and atraumatic. Mouth/Throat: Lips: [place]. Mouth: Mucous membranes are moist. Pharynx: Oropharynx is clear. Tonsils: No tonsillar exudate. Comments: No current scalloping, tongue is clear Eyes: Conjunctiva/sclera: Conjunctivae normal. Cardiovascular: Rate and Rhythm: Normal rate. Pulmonary: Effort: Pulmonary effort is normal. Skin: General: Skin is warm and dry. Neurological: General: No focal deficit present. Mental Status: She is alert and oriented to person, place, and time. 1. 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 - Order TSH, free T3, and free T4 labs. - Discussed importance of regular thyroid monitoring and management options if levels are abnormal. 2. Allergic rhinitis, unspecified seasonality, unspecified trigger (J30.9) - Symptoms currently mild and attributed to recent gardening. 3. Glossitis (K14.0) - Acute onset of tongue pain and swelling began Sunday; improved with ice application. - No current pain or swelling on exam. 4. Adverse effect of other nonsteroidal anti-inflammatory drugs (NSAID), initial encounter (T39.395A) - History of significant GI sensitivity to NSAIDs and other medications. - Advised continuation of Gas-X as needed for gas relief. 5. Vitamin D deficiency (E55.9) - History of adverse reaction to vitamin D supplementation. She reports prior difficulty with levothyroxine, sounds like her dose of medication may have been too high. Reports concern about taking medication if needed. She reports sensitivity to medications and vitamins. Reports vitamin D caused insomnia. Notes GI upset and left-sided abdominal pain with bloating with medications, no prior EGD. Has been taking Gas-X and Maalox for GI upset with relief. Makenna Roberts APRN.ISSUING OPERATOR Medical Decision Making: Problems: Low: Acute, uncomplicated illness or injury Data: Unique test(s) ordered: 3+ Risk: Moderate: Drug management Medical Decision Making Level: 4 - Moderate documented in this encounter [facility] 03-12-2024 Note Patient Outreach (IN TMMN) JAMARI THOMPSON ([id number]) 1955 F Date Time Provider Department 03/12/24 NITZA TREVIÑO During your visit today, we recorded the following information about you: Allergies As of Date: 03/12/2024 Noted Allergy Reaction erythromyocin [Other] 10/21/1999 8 - GI Upset Comments: Vomiting, led to hospitalization anti-inflammatory [Other] 10/21/1999 claririn [Other] 10/21/1999 decongestants [Other] 10/21/1999 dog [Other] 10/21/1999 dust [Other] 10/21/1999 Grasses [Other] 10/21/1999 Milk [Other] 10/21/1999 mold [Other] 10/21/1999 P[facility] 08/28/2023 2 - Rash 9 - Itching Date Reviewed: 08/28/2023 Reviewed by: Corina Kent APRN.COMPUTER SYSTEMS SOFTWARE ENGINEER - Fully Assessed Visit Diagnosis:Encounter for screening mammogram for breast cancer [Z12.31] Order(s):[facility] SCREENING W MICHELLE [[id number]] Order #: [id number] FUTURE Prescriptions as of 03/17/2024 - cholecalciferol (VITAMIN D-3) 50 mcg (2,000 unit) tablet Take 2,000 Units by mouth once daily. - L.rhamnosus/B.animalis,lactis, ([employer] ORAL) Take 1 tablet by mouth once daily. 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 Author Type: Swage Tender Type: Progress Notes Filed: 02/25/2024 13:09 Note Text: POPULATION HEALTH NAVIGATION OUTREACH Action/FYI Sent teams message to PAF to verify account balance . Spoke to Jamari She will schedule her own visit. Reason for Outreach Returned Call/MyChart Patient Contacted: Spoke to patient/parent/or legal guardian Patient identified by name and date of : Yes Returned call/MyChart actions taken: Patient declined: Patient will contact office directly to schedule PFA referral placed Navigation Signature: Michelle Nath MA February 25, 2024 12:41 PM POPULATION HEALTH NAVIGATION OUTREACH Action/FYI Patient wants to wait insurance pays other claims ANNUAL MEDICARE WELLNESS MAMMOGRAM FLU VAC Reason for Outreach Care Gap/HCC or Scheduling Wellness Visits Care Gaps due: Medicare Annual Wellness Visit Breast Cancer Screening Flu Vaccine Patient Contacted: Spoke to patient/parent/or legal guardian Patient identified by name and : No Navigation Signature: Michelle Nath MA February 21, 2024 1:24 PM [facility] 02-21-2024 History of Present illness Narrative POPULATION HEALTH NAVIGATION OUTREACH Action/FYI Sent teams message to PAF to verify account balance . Spoke to Jamari She will schedule her own visit. Reason for Outreach Returned Call/MyChart Patient Contacted: Spoke to patient/parent/or legal guardian Patient identified by name and date of : Yes Returned call/MyChart actions taken: Patient declined: Patient will contact office directly to schedule PFA referral placed Navigation Signature: Michelle Nath MA February 25, 2024 12:41 PM POPULATION [place] NAVIGATION OUTREACH Action/FYI Patient wants to wait insurance pays other claims ANNUAL MEDICARE WELLNESS MAMMOGRAM FLU VAC Reason for Outreach Care Gap/HCC or Scheduling Wellness Visits Care Gaps due: Medicare Annual Wellness Visit Breast Cancer Screening Flu Vaccine Patient Contacted: Spoke to patient/parent/or legal guardian Patient identified by name and : No Navigation Signature: Michelle Nath MA February 21, 2024 1:24 PM documented in this encounter [facility] 02-21-2024 Note Patient Outreach (NE TNAV) JAMARI THOMPSON ([id number]) 1955 F Date Time Provider Department 02/21/24 MICHELLE NATH NETNAV During your visit today, we recorded the following information about you: Michelle Nath MA 02/25/2024 1:09 PM Signed POPULATION HEALTH NAVIGATION OUTREACH Action/FYI Sent teams message to [facility] to verify account balance . Spoke to Jamari She will schedule her own visit. Reason for Outreach Returned Call/MyChart Patient Contacted: Spoke to patient/parent/or legal guardian Patient identified by name and date of : Yes Returned call/MyChart actions taken: Patient declined: Patient will contact office directly to schedule PFA referral placed Navigation Signature: Michelle Nath MA February 25, 2024 12:41 PM POPULATION HEALTH NAVIGATION OUTREACH Action/FYI Patient wants to wait insurance pays other claims ANNUAL MEDICARE WELLNESS MAMMOGRAM FLU VAC Reason for Outreach Care Gap/HCC or Scheduling Wellness Visits Care Gaps due: Medicare Annual Wellness Visit Breast Cancer Screening Flu Vaccine Patient Contacted: Spoke to patient/parent/or legal guardian Patient identified by name and : No Navigation Signature: Michelle Nath MA February 21, 2024 1:24 PM Allergies As of Date: 02/21/2024 Noted Allergy Reaction erythromyocin [Other] 10/21/1999 8 - GI Upset Comments: Vomiting, led to hospitalization anti-inflammatory [Other] 10/21/1999 claririn [Other] 10/21/1999 decongestants [Other] 10/21/1999 dog [Other] 10/21/1999 dust [Other] 10/21/1999 Grasses [Other] 10/21/1999 Milk [Other] 10/21/1999 mold [Other] 10/21/1999 [place] 08/28/2023 2 - Rash 9 - Itching Date Reviewed: 08/28/2023 Reviewed by: Corina Kent APRN.COMPUTER SYSTEMS SOFTWARE ENGINEER - Fully Assessed Reason for Visit: Population Health Navigation Outreach [3910] Cmt: [facility] PCSA Prescriptions as of 02/25/2024 - cholecalciferol (VITAMIN D-3) 50 mcg (2,000 unit) tablet Take 2,000 Units by mouth once daily. - L.rhamnosus/B.animalis,lactis, ([employer] ORAL) Take 1 tablet by mouth once daily. 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 Chief Complaint Patient presents with: ER F/U: 08/20/2023 due to swollen lymphnodes on neck HPI Jamari Thompson is a 67 year old female. She is an established patient of Nitza Treviño MD. She presents today for an ER follow up. She was seen in the ER at [facility] on 08/19. She was seen for concerns of swollen lymph nodes to her neck. Records are available in care everywhere and were reviewed with the visit. She had sudden onset of swollen neck lymph nodes that was to the point where she felt it was hard to turn her head. No symptoms of illness/sickness. She was treated with an antibiotic. She does recall having had this happen in the past. Improving but not resolved. Mammogram is up to date, normal. History of jan's. She wasn't sleeping as well. Thinks the vitamin D supplement was contributing. Her medications were reviewed today and her list is now up to date. Medications Current Outpatient Medications Medication Sig L.rhamnosus/B.animalis,lactis, ([employer] ORAL) Take 1 tablet by mouth once daily. cholecalciferol (VITAMIN D-3) 50 mcg (2,000 unit) tablet Take 2,000 Units by mouth once daily. Valtrex 500 mg Oral 1.0 tablet Oral PRN (Patient not taking: Reported on 11/03/2022) No current facility-administered medications for this visit. ALLERGIES Allergen Reactions Erythromyocin [Othe* GI Upset Vomiting, led to hospitalization Anti-Inflammatory [* Claririn [Other] Decongestants [Othe* Dog [Other] Dust [Other] Grasses [Other] Milk [Other] Mold [Other] Penicillins Rash, Itching ACTIVE PROBLEM LIST Post-Covid Chronic Cough - 09/15/2022 Osteopenia - 05/17/2022 Hypothyroidism Due to Jan's Thyroiditis - 05/17/2022 Thyroid Nodule - 05/17/2022 Raynaud's Disease - 09/20/2021 Social History Tobacco Use Smoking status: Never Smokeless tobacco: Never Vaping Use Vaping Use: Never used Substance Use Topics Alcohol use: No Drug use: No Review of Systems Respiratory: Negative. Cardiovascular: Negative. Hematological: Positive for adenopathy. OBJECTIVE BP 106/78 Pulse 77 Wt 125 lb (56.7kg) SpO2 97% Physical Exam Vitals and nursing [...] equal, round, and reactive to light. Neck: Thyroid: No thyroid mass, thyromegaly or thyroid tenderness. Vascular: No JVD. Trachea: Trachea normal. Pulmonary: Effort: Pulmonary effort is normal. No accessory muscle usage, prolonged expiration or respiratory distress. Breath sounds: Normal breath sounds. Musculoskeletal: Cervical back: Normal range of motion and neck supple. Lymphadenopathy: Cervical: Cervical adenopathy present. Right cervical: Superficial cervical adenopathy and posterior cervical adenopathy present. No deep cervical adenopathy. Left cervical: Superficial cervical adenopathy and posterior cervical adenopathy present. No deep cervical adenopathy. Skin: General: Skin is warm and dry. [...] memory normal. Judgment: Judgment normal. ASSESSMENT/PLAN: 1. Lymphadenitis, acute - ICD9: 683, ICD10: L04.9 (primary diagnosis) Improving, check labs and consider ultrasound to ensure she is not getting hyperthyroid/thyroiditis. 2. 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 - US THYROID/PARATHYROID - THYROID STIMULATING HORMONE - T3, FREE - T4 FREE/FREE THYROXINE - THYROID PEROXIDASE ANTIBODY 3. Thyroid nodule - ICD9: 241.0, ICD10: E04.1 - US THYROID/PARATHYROID - THYROID STIMULATING HORMONE - T3, FREE - T4 FREE/FREE THYROXINE - THYROID PEROXIDASE ANTIBODY 4. Vitamin D deficiency - ICD9: 268.9, ICD10: E55.9 - VITAMIN D 25 HYDROXY 5. Encounter for therapeutic drug monitoring - ICD9: V58.83, ICD10: Z51.81 - THYROID STIMULATING HORMONE - COMPLETE BLOOD COUNT AND DIFFERENTIAL - COMPREHENSIVE METABOLIC PANEL - T3, FREE - T4 FREE/FREE THYROXINE Portions of this note have been entered [...] Age-appropriate health preventative measures were discussed. Return if symptoms worsen or fail to improve, for Keep next scheduled appointment.. Corina Kent APRN-ROBERT documented in this encounter [facility] 05-03-2023 Discharge summary Note Date/Time May 03, 2023 5:00pm [facility] Medical Records Department [address] [place] [address] Emergency Department Summary 05/03/23 MR#: [id number] Acct: [id number] Name: JAMARI THOMPSON Rep #:[id number] : 1955 67 From: Rebel Grider DO PCP: Dr. Nitza Treviño MD Status:RE G ER Location: ED HPI HPI - Female History of Present Illness Chief Complaint: Complaint Narrative Narrative: 67-year-old female presenting with dysuria, urinary frequency, hematuria. Patient states she has not had a UTI in many years. She states he started having symptoms a few days ago. No fevers. No chills. She was sick around [place] and thought she had something viral which resolved and she did not fevers at that time. Currently she denies chest pain, palpitations, shortness of breath, cough, fever, chills, myalgias. No abdominal pain or flank pain. Nodiarrhea or constipation. Patient states he simply has a urinary tract infection symptoms and generally feels unwell. She states she has been able to eat and drink and she is not vomiting. She went to urgent care to have her selfassessed and they told her to come to the emergency room for IVs. She is unsurewhy as she states has been drinking plenty of fluids at home. 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 Had mets. had done radiation. Doing chemo now. No surgery. Surgical History Cataract extraction status of right eye H/O inguinal hernia repair History of rhinoplasty Social History Smoking Status: Never smoker alcohol intake: never substance use type: does not use what type of physical activity do you participate in: walking frequency: 5-6 times per week seatbelt use: always do you feel safe at home: Yes additional social history: Single ROS ROS ED Constitutional Constitutional ED: Denies chills, fever(s) or sweats Eyes Eyes: Denies blurry vision or change in vision ENT ENT ED: Denies ear pain, rhinorrhea or sore throat Cardiovascular Cardiovascular: Denies chest pain, palpitations or racing heartbeat Respiratory/Chest Respiratory/Chest: Denies cough, dyspnea or sputum Gastrointestinal Gastrointestinal: Denies abdominal pain, constipation, diarrhea or vomiting Genitourinary Genitourinary ED: Reports dysuria, hematuria and urinary frequency Musculoskeletal Musculoskeletal: Denies arthralgias, myalgias or neck pain Integumentary Denies abscess, Abrasions or rash Neurologic Neurologic: Denies headache(s), paresthesias or weakness Psychiatric Psychiatric: Denies anxiety, depression, suicidal ideation or suicidal thoughts Endocrine Endocrinology: Denies polydipsia or polyuria EXAM Physical Exam Const Vital Signs: 05/03/23 15:19 Temperature 96 F L Temperature Source Temporal Pulse Rate 72 Respiratory Rate 18 Blood Pressure 130/85 H Blood Pressure Mean 100 Pulse Ox 100 Oxygen Delivery Method Room Air Positive well nourished General Appearance ED: NAD HEENT Reports moist mucous membranes Eyes PERRL and EOMs intact bilaterally Neck no lymphadenopathy Chest Wall inspection of chest normal Resp normal respiratory effort and clear to auscultation bilaterally Auscultation: Negative for rales, rhonchi or wheezes Cardio regular rate and regular rhythm GI normal to inspection, nondistended, normoactive bowel sounds Neuro oriented x3 and CN's II-XII intact bilaterally Sensorium / Orientation: alert Psych mental status grossly normal Skin no rashes or lesions noted MDM MDM MDM Narrative Medical decision making narrative: Well-appearing 67-year-old female with urinary symptoms. Vital signs are stableshe is afebrile. She is pleasant and smiling and appears to be in no acute distress. She states she simply has UTI symptoms and she does not feel she is dehydrated. The labs were put in while the patient was in the waiting room. CBC was obtained to assess for blood cell count, hemoglobin, platelets. CMP to assess liver function and electrolytes. Urinalysis to assess for UTI. On examination she has no CVA tenderness. Is likely she has UTI. CBC shows no leukocytosis. Hemoglobin hematocrit are stable. Platelets are normal. Function within normal limits. Slightly elevated 1.10 and GFR slightly decreased at 53. BUN/creatinine ratio 24.5. Patient was given a liter normal saline. Patient will be given Zofran and Keflex for home. Return precautions were discussed. Impression: 1. Cystitis 2. Dehydration Lab Data Attestation: I reviewed the patient's lab results. Labs: Laboratory Results - last 24 hr 05/03/23 05/03/23 15:30 15:55 WBC 6.4 RBC 4.93 Hgb 14.4 Hct 45.6 MCV 92.5 MCH 29.2 MCHC 31.6 L RDW Std Deviation 46.2 H RDW Coeff of Edgard 13.5 Plt Count 299 MPV 10.8 Immature Gran % (Auto) 0.300 Neut % (Auto) 47.7 Lymph % (Auto) 41.1 H Christian % (Auto) 8.4 Eos % (Auto) 1.9 Baso % (Auto) 0.6 Absolute Neuts (auto) 3.1 Absolute Lymphs (auto) 2.63 Nucleated RBC % 0 Sodium 140 Potassium 3.6 Chloride 110 H Carbon Dioxide 25.0 Anion Gap 5 BUN 27 H Creatinine 1.10 H Estim Creat Clear Calc 42.86 Est GFR (MDRD) Af Amer 64 Est GFR (MDRD) Non-Af 53 L BUN/Creatinine Ratio 24.5 H Glucose 93 Calcium 8.7 Total Bilirubin 0.60 AST 19 ALT 23 Alkaline Phosphatase 94 Total Protein 7.3 Albumin 3.5 Globulin 3.8 Albumin/Globulin Ratio 0.9 Urine Color Yellow Urine Clarity Sl. Cloudy Urine pH 5.0 Ur Specific [place] 1.030 Urine Protein 30 H Urine Glucose (UA) Normal Urine Ketones 15 H Urine Occult Blood 50 H Urine Nitrite Negative Urine Bilirubin Negative Urine Urobilinogen Normal Ur Leukocyte Esterase 500 H Urine RBC 10-25 SEEN Urine WBC >100 SEEN Ur Squamous Epith Cells 0 SEEN Ur Transition Epith Cell 5-10 SEEN Urine Bacteria 1+ Urine Mucus 0 SEEN Discharge Plan Triage Chief Complaint: Complaint Other Complaint: Weakness ED Provider: Rebel Grider Dx/Rx/DC Orders Instructions: ED Cystitis Female Adult Prescriptions: New cephalexin 500 mg capsule 500 mg PO Q12 Qty: 14 0RF No Action cholecalciferol (vitamin D3) [Vitamin D3] 50 mcg (2,000 unit) capsule 50 mcg PO DAILY Primary Care Provider: Nitza Treviño Referrals: Nitza Treviño MD [Primary Care Provider] - Disposition Disposition: Home, Self Care What to do if you have Problems For any increased pain, shortness of breath, bleeding, nausea or vomiting, chestpain, or any unexpected problems, contact your Primary Care Provider. Call [facility] ([phone]) or report to the closest Emergency Room. Call 911 if necessary. 05/03/23 1700 <Electronically signed by Rebel Grider DO> Cosigner Signature (if applicable): CC: Dr. Nitza Treviño MD ~ Signed [facility] Work Phone: 1(418) 931-462112-06-2023 Discharge summary Author Manjeet Moncada [facility] April 04, 2023 10:36pm Note Date/Time April 04, 2023 9 :55pm [facility] Medical Records Department [address] [place] [address] [place] [address] Emergency Department Summary 04/04/23 MR#: [id number] Acct: [id number] Name: JAMARI THOMPSON Rep #:[id number] : 1955 67 From: Manjeet Moncada MD PCP: Dr. Nitza Treviño MD Status:RE G ER Location: ED HPI History of Present Illness Chief Complaint: Laceration Narrative Narrative: 67-year-old female who denies significant past medical history presents with hersister for a laceration on her left hand that she sustained when she cut it on abroken pipe plate that was ceramic. The pipeline had already been broken and then was in the garbage. When she went to throw away something else, she pushedthe item down, and sustained a laceration to her left hand from the broken pipe plate. She states that she sustained a laceration approximately 2 hours ago. She is unsure of her last tetanus immunization, may have been 10 years ago. Shetried to get the laceration on her left hand at the base of her pinky finger to stop and it finally did, but she is not sure how deep it is. She denies any foreign body sensation but states she has a throbbing pain in her left hand. She is right-hand dominant. She denies other injury. 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 Had mets. had done radiation. Doing chemo now. No surgery. Surgical History Cataract extraction status of right eye H/O inguinal hernia repair History of rhinoplasty Social History Smoking Status: Never smoker alcohol intake: never substance use type: does not use what type of physical activity do you participate in: walking frequency: 5-6 times per week seatbelt use: always do you feel safe at home: Yes additional social history: Single ROS ROS ED ROS Narrative Constitutional: No fever, no chills. HEENT: No sore throat. No neck pain. No loss of vision. No rhinorrhea. Cardiovascular: No chest pain. No palpitations. No pedal edema. Respiratory: No cough, no shortness of breath. Abdominal: No abdominal pain. No nausea. No vomiting. Genitourinary: No dysuria. No hematuria. Musculoskeletal: No myalgias. No arthralgias. Neurologic: No headaches. No dizziness. No lightheadedness. Skin: No rash. No change in color. Positive laceration to left palm Psychiatric: No depression. No anxiety. EXAM Physical Exam Narrative Exam Narrative: Afebrile. Vital signs noted. HEENT: Normocephalic. Atraumatic. PERRL, EOMI. Neck soft and supple. No pointtenderness or step off. Cardiovascular: Regular rate and rhythm. No murmurs, rubs, or gallops appreciated. Respiratory: No tachypnea. Lungs clear to auscultation bilaterally. Gastrointestinal: Abdomen soft, nontender, with normoactive bowel sounds. No rebound or guarding. Neurological: Awake. Alert. Nonfocal, nonlateralizing. Skin: No rash. Normal color. No pallor. 1.5 cm laceration running obliquely on palm of left hand below fifth digit. Minimal oozing from midportion of the laceration. Full range of motion of left digits. Good capillary refill. Palpable radial pulse. Musculoskeletal: No pedal edema. Full range of motion extremities. Const Vital Signs: 04/04/23 21:39 Temperature 97.2 F L Temperature Source Temporal Pulse Rate 75 Respiratory Rate 16 Blood Pressure 140/85 H Blood Pressure Mean 103 Pulse Ox 96 Oxygen Delivery Method Room Air MDM MDM MDM Narrative Medical decision making narrative: I do not feel x-rays are indicated. Her tetanus immunization will be updated. I do feel that in order to achieve hemostasis, that the wound should be cleansedand sutures applied. She denies foreign body sensation. She was informed of the risk of infection and scarring and acknowledges an understanding. See procedure note for full details. 3 simple interrupted sutures using five-point 0 Ethilon were used for the skin closure and hemostasis. She was placed in a dry sterile dressing. She will have the sutures removed by her primary care provider in the next 7 to 10 days or return to the emergency department. She will take [id number]-pts-[id number] analgesics as needed. I feel she can be discharged safely home with follow-up. Return instructions to the emergency department reviewed. Disposition is discharged home in improved and stable condition. History & Record Review Discussion w/independent historian: Patient Additional record(s) reviewed:: Prior ED visit (Noncontributory to current chiefcomplaint.) Differential Diagnosis Differential Diagnosis: Not applicable. Procedures Lacerations Left hand: Length: 0.59 in Depth: Skin Shape: Linear Prep: Sterile Conditions and Shure-Clens Laceration repair: Irrigated, Lidocaine and Local Number of Sutures/[place]: 3 Suture Information: Ethilon, Simple and 5-0 Comment: Patient tolerated procedure well. Discharge Plan Triage Chief Complaint: Laceration ED Provider: Manjeet Moncada Dx/Rx/DC Orders Clinical Impression: Need for Tdap vaccination, Laceration of hand, left Instructions: ED Laceration, Hand: All Closures Prescriptions: No Action cholecalciferol (vitamin D3) [Vitamin D3] 50 mcg (2,000 unit) capsule 50 mcg PO DAILY Primary Care Provider: Nitza Treviño Referrals: Nitza Treviño MD [Primary Care Provider] - 10 Day for suture removal Activity Restrictions/Additional Instructions: Return with fever, drainage of pus from the wound, increased redness of wound, new or worsening symptoms. Disposition Disposition: Home, Self Care What to do if you have Problems For any increased pain, shortness of breath, bleeding, nausea or vomiting, chestpain, or any unexpected problems, contact your Primary Care Provider. Call [facility] ([phone]) or report to the closest Emergency Room. Call 911 if necessary. 04/04/232235 <Electronically signed by Manjeet Moncada MD> Cosigner Signature (if applicable): CC: Dr. Nitza Treviño MD ~ Signed [facility] Work Phone: 1(591) 161-667109-22-2023 History of Present illness Narrative* Corina Kent, JOSE.COMPUTER SYSTEMS SOFTWARE ENGINEER - 01/19/2023 1:42 PM EDT SUBJECTIVE Jamari Thompson is a 67 year old female here today for a check up on her medical problems. Chief Complaint Patient presents with: 4 month follow up: would like to cut back on appointments. Is interested in confirming dx of jan. HPI Jamari Thompson is a 67 year old female established patient. Here for a 4 month follow up. Would like labs for her thyroid. Would like antibodies for jan's checked. Overall doing well.Continues to take vitamin d as tolerated. Her [...] Judgment normal. ASSESSMENT/PLAN: 1. 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 Questions answered. Agrees to call the office [...] as well as compliance with taking medications. Age- appropriate health preventative measures were discussed. Return in about 1 year (around 01/20/2024) for Wellness physical.. Corina Kent APRN-ROBERT documented [facility]23 Miscellaneous Notes* Telephone Encounter - Kimberlee Baker RN - 12/20/2022 8:25 AM EDT Patient calls for bullseye rash to right [...] up. 3. LOCATION: Right arm. 4. REDNESS: "Is the area red or pink?" If Yes, ask: "What size is area of redness?" (inches or cm)."When did the redness start?" White center surrounded by dark red [place] that is inflamed. Patient reports yesterday the area wasabout 2 inches in size. Today the area [...] rash to right arm. Protocols used: Insect [id number]-[id number]-UV, Tick Clxi-XIGRL-VO documented in this encounterBarberton [facility]07-17-2023 Instructions* Patient Instructions* Dottie Benton LPN - 11/13/2022 9:07 AM EDT The following instructions are important for you related to your office visit today with the [facility]. Instructions After THYROID FINE NEEDLE [...] you have any questions or concerns @ [phone]. Please make an appointment to follow up in one week with your physician and [facility] If you note any additional difficulties, questions, or concerns, you should contact our office immediately @ [phone] and ask to be transferred to the General Surgery department. documented in this encounterBarberton [facility]07-17-2023 History of Present illness Narrative* Dottie Benton LPN - 11/13/2022 8:41 AM EDT UNIVERSAL PROTOCOL / SAFETY CHECKLIST Procedure to [...] retained foreign bodies applicable. Dottie Benton LPN * Kasey Go MD - 11/13/2022 8:36 AM EDT Jamari presents for US guided FNA of right thyroid nodule. PROCEDURE NOTE: After informed consent was given and patient gives permission for the procedure, the patient was inthe supine position with neck in slight extension. [...] staff. Patient acknowledges above. documented in this encounterBarber[facility]06-20-2023 Miscellaneous Notes* Telephone Encounter - Mari Enrique LPN - 10/17/2022 4:42 PM EDT PATIENT NOTIFIED OF SAME. Call transferred to [facility] to scheduled consult. * Telephone Encounter - Corina Kent APRN.CNP - 10/17/2022 4:29 PM EDT Please let patient know that recent ultrasound of the thyroid showed a nodule that had slightly increased in size, radiology does recommend a fine needle aspiration of this. I placed a referral for general surgery to see them to discuss this further. documented in this encounterBarber[facility]01-18-2023 Miscellaneous Notes* Telephone Encounter - Mari Enrique LPN - 05/17/2022 2:58 PM EST Found correct order. Please review and advise. * Telephone Encounter - Corina Kent APRN.CNP - 05/17/2022 2:03 PM EST Can we please call [facility] and let them know [facility] does not have that option but I put comments with the order that they can substitute. Thanks! * Telephone Encounter - Suze Ferreira RN - 05/17/2022 1:26 PM EST Ed Grider reports the cholecalciferol 400 unit/ 5 ml- is not available. Reports it should read 400 unit / 1 ml. documented in this encounterBarberton [facility] Hospital01-18-2023 History of Present illness Narrative* Corina Kent APRN.CNP - 05/17/2022 9:19 AM EST SUBJECTIVE Jamari Thompson is a 66 year old female here today for a check up on her medical problems. Chief Complaint Patient presents with: Results: discuss lab results Gas: bloating and distention in bowels treats with mk and lactaid. Questions lactose intolerance.denies constipation or diarrhea. denies any GERD or heartburn. Throat Problem: has a constant achy throat and Dr. Treviño states that she has odynophagia Covid Positive: on 05/03/22 symptoms started on 04/29/22 HPI Jamari Thompson is a 66 year old female established [...] bothering her when she takes oral medications. Triedlactaid and mk this am, feeling okay with [...] from today's visit and in agreement with treatmentplan. Questions answered. Agrees to call the office [...] as well as compliance with taking medications. Age- appropriate health preventative measures were discussed. Return in about 4 months (around 09/14/2022) for Follow up on chronic conditions and medications.. Corina Kent APRN-ROBERT documented in this encounterBarber[facility]08-17-2022 Miscellaneous Notes* Telephone Encounter - Halle De Leon LPN - 12/14/2021 11:10 AM EDT My chart message to pt also. * Telephone Encounter - Halle De Leon LPN - 12/14/2021 11:08 AM EDT ----- Message from Nitza Treviño MD sent at 12/13/2021 11:03 PM EDT ----- Noted that TSH was still elevated and up to 7 but Free T4 and Free T4 within normal limits. Noted that had not tolerated levothyroxine even at lowest dose before. Can recheck labs every 4 to 6 monthsto see if TSH goes higher and Free [...] 3 are the criteria--her risks are 19% and2.2%). Would repeat bone density in 2 years. Also noted thyroid ultrasound--recommendations to recheck ultrasound with next one in 1 year. Follow up appointment if wants to discuss results after gets labs in 4 to 6 months. . documented in this encounterBarberton [facility]06-13-2022 History of Present illness Narrative* RT Puma(R) - 10/10/2021 9:00 AM EDT Radiology Service Progress Note PATIENT NAME: Jamari Thompson DATE OF SERVICE: October 10, 2021 TIME: 8:13 AM PATIENT IDENTITY VERIFICATION COMPLETED USING TWO (2) IDENTIFIERS: Name and Date of confirmedby patient verbally. FALL SCREENING: Has the patient [...] 10, 2021 8:13 AM documented in this encounterWilcox ClinicDischarge summary Author Zhen Kemp [facility] August 20, 2023 9:06am Note Date/Time August 20, 2023 8:5 8am [facility] Medical Records Department [address] [place] [address] Emergency Department Summary 08/20/23 MR#: [id number] Acct: [id number] Name: JAMARI THOMPSON Rep #:[id number] : 1955 67 From: Zhen Kemp MD PCP: Dr. Nitza Treviño MD Status:VT E ER Location: ED HPI History of Present Illness Chief Complaint: Other, Pain/Inj Detail of Chief Complaint: Pain and swelling neck Informant: patient Onset/Context/Timing Onset: Yesterday Context: Sudden Onset Timing: Continuous Quality: Pain Location: Anterior left and right neck Current Severity: Mild Maximum Severity: Moderate Worsened by: Palpation Relieved by: Nothing Associated Symptoms Associated Symptoms: None Narrative Narrative: Patient is a 67-year-old woman. She is on no medical duration. She has allergyto penicillin. She has taken azithromycin in the past. Of note erythromycin base she is intolerant of i.e. GI GI upset. She denies fever, chills night sweats. She denies change in voice. She denies inability to swallow liquids orsolids. She states she does have odynophagia. She has some increased pain withdrinking cold liquids. She denies weight loss or weight gain. She has no othercomplaints. Patient in April was diagnosed with strep pharyngitis. Patient's been seen for minor symptoms. ER records. In 2021 she had a [employer] visit. She also had a visit for dysuria. Patient has history of Raynaud's reviewing old records. Patient is only on vitamin D. 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 animalis 3 billion cell capsule (Hlidacky.cz) cap PO 05/29/23 [History Last Taken Unknown] azithromycin 250 mg tablet See Rx Instructions PO .COMPLEX #6 tabs 06/21/23 [Rx Last Taken Unknown] azithromycin 250 mg tablet See Rx Instructions PO .COMPLEX #6 tabs 08/20/23 [Rx Last Taken Unknown] Allergy/AdvReac Type Severity Reaction Status Date / Time erythromycin base AdvReac gi upset Verified 08/20/23 08:45 Family History Mother Dementia Hypertension Sister Breast cancer, Onset Age: 68 No genetic testing. Had mets. had done radiation. Doing chemo now. No surgery. Surgical History Cataract extraction status of right eye H/O inguinal hernia repair History of rhinoplasty Social History Smoking Status: Never smoker alcohol intake: never substance use type: does not use what type of physical activity do you participate in: walking frequency: 5-6 times per week seatbelt use: always do you feel safe at home: Yes additional social history: Single ROS ROS ED Constitutional Constitutional ED: Denies chills, fever(s), subjective or sweats Eyes Eyes: Denies blurry vision, change in vision or diplopia ENT ENT ED: Reports other Details: Concern for mastitis. She denies ear pain. Denies ear drainage. She denies pain postauricular area. ; Denies ear pain, rhinorrhea or sore throat Cardiovascular Cardiovascular: Denies chest pain or palpitations Respiratory/Chest Respiratory/Chest: Denies cough, dyspnea or dyspnea on exertion Gastrointestinal Gastrointestinal: Denies nausea or vomiting Hematologic/Lymphatic Hematologic/Lymphatic: Reports systems reviewed and no addt'l complaints, exceptas documented Allergic/Immunologic Allergic/Immunologic ED: Denies mouth swelling or tongue swelling EXAM Physical Exam Const Vital Signs: 08/20/23 08:45 Temperature 97.8 F Temperature Source Temporal Pulse Rate 77 Respiratory Rate 16 Blood Pressure 122/86 H Blood Pressure Mean 98 Pulse Ox 98 Oxygen Delivery Method Room Air Positive well nourished and well developed General Appearance ED: well developed and NAD HEENT Reports moist mucous membranes HEENT Narrative: Head is atraumatic normocephalic. Ears normal. External auditory canals normal. TMs normal. There is no pain palpation over the mastoid region right or left. There is no swelling or erythema noted. Uvula is midline. There is no erythema of the posterior pharynx. Patient has no dysphonia. Patient does have bilateral anterior superior cervical lymphadenopathy. Nodes are tender, mobile and firm not hard. They are not irregularly shaped. Eyes PERRL and EOMs intact bilaterally General Eye ED: Negative for pale conjunctiva or scleral icterus Neck No no lymphadenopathy, supple and no JVD Resp normal respiratory effort and clear to auscultation bilaterally Cardio regular rate, regular rhythm, S1 normal heart sound, S2 normal heart sound and no murmurs Extremity normal to inspection Neuro oriented x3 and CN's II-XII intact bilaterally Sensorium / Orientation: alert Skin no rashes or lesions noted, no wounds and skin turgor normal MDM MDM MDM Narrative Medical decision making narrative: With no erythema exudate of posterior pharynx no history of fever this is not consistent with strep. Patient has in all likelihood cervical adenitis. Because of her allergy to penicillin she was treated with azithromycin. Patientwas informed that if there is no improvement in 5 to 7 days she should follow-upwith her doctor for further testing which may include imaging. History & Record Review Additional record(s) reviewed:: Prior outpatient record (Urgent care for strep pharyngitis), Prior ED visit (Noted in the HPI narrative) and Prior labs Discharge Plan Triage Chief Complaint: Other, Pain/Inj ED Provider: Zhen Kemp Dx/Rx/DC Orders Clinical Impression: Acute cervical adenitis, Odynophagia, Penicillin adverse reaction, Raynauds syndrome Instructions: ED ADENITIS Cervical Abx Tx Prescriptions: New azithromycin 250 mg tablet See Rx Instructions .ROUTE .COMPLEX Qty: 6 0RF Rx Instructions: For 250 mg dose pack: take 500 mg today (day 1), then 250 mg for 4 days (days2- 5) No Action cholecalciferol (vitamin D3) [Vitamin D3] 50 mcg (2,000 unit) capsule 50 mcg PO DAILY Hlidacky.cz 3 billion cell capsule PO azithromycin 250 mg tablet See Rx Instructions PO .COMPLEX Qty: 6 0RF Rx Instructions: take 500 mg today (day 1), then 250 mg for 4 days (days 2-5) PO Primary Care Provider: Nitza Treviño Referrals: Nitza Treviño MD [Primary Care Provider] - 1 Week if not improving Disposition Disposition: Home, Self Care What to do if you have Problems For any increased pain, shortness of breath, bleeding, nausea or vomiting, chestpain, or any unexpected problems, contact your Primary Care Provider. Call [facility] ([phone]) or report to the closest Emergency Room. Call 911 if necessary. 08/20/23905 <Electronically signed by Zhen Kemp MD> Cosigner Signature (if applicable): CC: Dr. Nitza Treviño MD ~ Signed [facility] Work Phone: Evaluation note* Diagnosis Encounter for screening mammogram for breast cancer documented in this encounter [facility] note* Diagnosis Enlarged thyroid Goiter, unspecified Odynophagia Dysphagia, unspecified documented in this encounter [facility] note* Diagnosis Asymptomatic postmenopausal status documented in this encounter [facility] noteNo assessment information availableWCleveland Clinic [facility] Work Phone: Evaluation note* Diagnosis Osteopenia, unspecified location- Primary Vitamin D deficiency Unspecified vitamin D deficiency Thyroid nodule Nontoxic uninodular goiter 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 Dyspepsia Dyspepsia and other specified disorders of function of stomach Encounter for therapeutic drug monitoring [facility]* Diagnosis Vitamin D deficiency Unspecified vitamin D deficiency [facility]* Diagnosis Thyroid nodule- Primary Nontoxic uninodular goiter [facility]* Diagnosis Abnormal ultrasound of thyroid gland- Primary Nonspecific abnormal results of thyroid function study documented in this encounter [facility] note* Diagnosis 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 Thyroid nodule Nontoxic uninodular goiter Vitamin D deficiency Unspecified vitamin D deficiency Encounter for therapeutic drug monitoring documented in this encounter [facility] note* Diagnosis Onset Date Resolution Status Encounter for routine gynecological examination noneactive Strep pharyngitis acute Penicillin adverse reaction acute Strep pharyngitis acute [facility] Work Phone: Evaluation note* Diagnosis Lymphadenitis, acute- Primary Acute lymphadenitis 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 Thyroid nodule Nontoxic uninodular goiter Vitamin D deficiency Unspecified vitamin D deficiency Encounter for therapeutic drug monitoring documented in this encounter [facility] note* Diagnosis 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 Discharge instructions Additional Instructions Return with fever, drainage of pus from the wound, increased redness of wound, new or worsening symptoms.[facility] Work Phone: Reason for referral (narrative)* Diagnostic Procedure Only (Routine) - Pending Review Specialty Diagnoses / Procedures Referred By Vitor zaman Referred To Contact [facility] Diagnoses Encounter for screening mammogram for breast cancer Procedures ALESSANDRA SCREENING SCREENING MAMMOGRAPHY BI 2-VIEW BREAST INC CAD Nitza Treviño MD [address] [place] [id number] [facility] [address] [place] [address] Referral ID Status Reason Start Date Expiration Date Visits Requested Visits Authorized [id number] Pending Review Auto-Generat ed Referral 09/21/2021 10/21/2022 1 1 [facility] for referral (narrative)* Diagnostic Procedure Only (Routine) - Closed Specialty Diagnoses / Procedures Referred By Vitor zaman Referred To Contact [facility] Diagnoses Enlarged thyroid Odynophagia Procedures [facility] THYROID/PARATHYROID US SOFT TISSUE HEAD & NECK REAL TIME IMGE Nitza Yu MD [address] [place] [address] Us [facility] Referral ID Status Reason Start Date Expiration Date V isits Requested Visits Authorized [id number] Closed Auto-Generate d Referral 09/20/2021 10/20/2022 1 1 [facility] for referral (narrative)* Diagnostic Procedure Only (Routine) - Pending Review Specialty Diagnoses / Procedures Referred By Vitor zaman Referred To Contact US IMAGING Diagnoses 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 Thyroid nodule Procedures US THYROID/PARATHYROID US SOFT TISSUE HEAD & NECK REAL TIME IMGE Corina Ortiz APRN.CNP [address] [place] [address] [place] [address] Referral ID Status Reason Start Date Expiration Date Visits Requested Visits Authorized [id number] Pending Review Auto-Generat ed Referral 08/28/2023 09/26/2024 1 1 [facility] for referral (narrative)* Diagnostic Procedure Only (Routine) - New Request Specialty Diagnoses / Procedures Referred By Vitor zaman Referred To Contact [facility] Diagnoses Encounter for screening mammogram for breast cancer Procedures ALESSANDRA SCREENING W MICHELLE SCREENING DIGITAL BREAST TOMOSYNTHESIS BI SCREENING MAMMOGRAPHY BI 2-VIEW BREAST INC CAD Nitza Treviño MD [address] [place] [id number] [facility] [address] [place] [address] Referral ID Status Reason Start Date Expiration Date Visits Requested Visits Authorized [id number] New Request Auto-Generat ed Referral 04/11/2025 1 1 [facility] for visit Narrative* Diagnostic Procedure Only (Routine) - Closed Specialty Diagnoses / Procedures Referred By Vitor zaman Referred To Contact US IMAGING Diagnoses Enlarged thyroid Odynophagia Procedures US THYROID/PARATHYROID US SOFT TISSUE HEAD & NECK REAL TIME IMGE Nitza Yu MD [facility] [place] [address] Us Imaging Referral ID Status Reason Start Date Expiration Date V isits Requested Visits Authorized [id number] Closed Auto-Generate d Referral 09/20/2021 10/20/2022 1 1 [facility] Chief Complaint and Reason for Visit Chief Complaint SCREENING Chief Complaint ABNORMAL ULTRASOUND Chief Complaint SCREENING LACERATION Chief Complaint SCREENING LACERATION weakness, nausea, painful urination Chief Complaint weakness, nausea, pa inful urination 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) SORE THROAT ITCHY SKIN RASH SWELLING GLAND Reason for Visit Encounter for routin e gynecological examination Strep pharyngitis Penicillin adverse reaction Strep pharyngitis Family History No Family History Records Found Relationship Condition Age at Onset Recorded Date/T corina mother Dementia Unknown Hypertension Unknown sister Malignant neoplasm of breast 68 Advance Directives No Advanced Directives Records Found Advance Directive Response Recorded Date/ Time Advance Directives Yes May 14, 2016 11:02am Living Will Yes January 12, 2017 2:23pm Power of Combustion Analyst Yes December 2:23pm Documents on File Type Date Recorded Patient Paper Rewinder Expl anation Advance Directive(s) 11/06/2022 3:01 PM Advance Directive Response Recorded Date/ Time Advance Directives Yes May 14, 2016 10:02am Living Will No April 04 9:51pm Power of Combustion Analyst No April 04, 2023 9:51pm Advance Directive Response Recorded Date/ Time Advance Directives Yes May 03, 2023 2:42pm Living Will No May 03 5:14pm Power of Combustion Analyst No May 03 5:14pm Advance Directive Response Recorded Date/ Time Advance Directives Yes May 7:11am Living Will No August 20, 2023 9:15am Power of Combustion Analyst No August 19 9:15am Documents on File Type Date Recorded Patient Paper Rewinder Expl anation Advance Directive(s) 11/06/2022 3:01 PM Reason for Referral Specialty Diagnoses / Procedures Referred By Vitor zaman Referred To Contact General Surgery Diagnoses Thyroid nodule Procedures CONSULT TO GENERAL SURGERY OFFICE/OUTPATIENT [facility] 60-74 MINUTES Corina Kent APRN.COMPUTER SYSTEMS SOFTWARE ENGINEER [address] [place] [address] Referral ID Status Reason Start Date Expiration Date Visits Requested Visits Authorized [id number] Authorized PCP Requested Referral 10/17/2022 10/17/2023 1 1 Summary Purpose Additional Source Comments Source Comments (unrecognize d section and content) In the event this informatio n is protected by the Federal Confidentiality of Alcohol and Drug Abuse Patient Records regulations: The Federal rules restrict any use of the information to criminally investigate or prosecute any alcohol or drug abuse patient.[facility] the event this information is protected by the Federal Confidentiality of Alcohol and Drug Abuse Patient Records regulations: The Federal rules restrict any use of the information to criminally investigate or prosecute any alcohol or drug abuse patient.[facility] the event this information is protected by the Federal Confidentiality of Alcohol and Drug Abuse Patient Records regulations: The Federal rules restrict any use of the information to criminally investigate or prosecute any alcohol or drug abuse patient.[facility] the event this information is protected by the Federal Confidentiality of Alcohol and Drug Abuse Patient Records regulations: The Federal rules restrict any use of the information to criminally investigate or prosecute any alcohol or drug abuse patient.[facility] the event this information is protected by the Federal Confidentiality of Alcohol and Drug Abuse Patient Records regulations: The Federal rules restrict any use of the information to criminally investigate or prosecute any alcohol or drug abuse patient.[facility] the event this information is protected by the Federal Confidentiality of Alcohol and Drug Abuse Patient Records regulations: The Federal rules restrict any use of the information to criminally investigate or prosecute any alcohol or drug abuse patient.[facility] the event this information is protected by the Federal Confidentiality of Alcohol and Drug Abuse Patient Records regulations: The Federal rules restrict any use of the information to criminally investigate or prosecute any alcohol or drug abuse patient.[facility] the event this information is protected by the Federal Confidentiality of Alcohol and Drug Abuse Patient Records regulations: The Federal rules restrict any use of the information to criminally investigate or prosecute any alcohol or drug abuse patient.[facility] the event this information is protected by the Federal Confidentiality of Alcohol and Drug Abuse Patient Records regulations: The Federal rules restrict any use of the information to criminally investigate or prosecute any alcohol or drug abuse patient.[facility] the event this information is protected by the Federal Confidentiality of Alcohol and Drug Abuse Patient Records regulations: The Federal rules restrict any use of the information to criminally investigate or prosecute any alcohol or drug abuse patient.[facility] the event this information is protected by the Federal Confidentiality of Alcohol and Drug Abuse Patient Records regulations: The Federal rules restrict any use of the information to criminally investigate or prosecute any alcohol or drug abuse patient.[facility] the event this information is protected by the Federal Confidentiality of Alcohol and Drug Abuse Patient Records regulations: The Federal rules restrict any use of the information to criminally investigate or prosecute any alcohol or drug abuse patient.[facility] the event this information is protected by the Federal Confidentiality of Alcohol and Drug Abuse Patient Records regulations: The Federal rules restrict any use of the information to criminally investigate or prosecute any alcohol or drug abuse patient.[facility] the event this information is protected by the Federal Confidentiality of Alcohol and Drug Abuse Patient Records regulations: The Federal rules restrict any use of the information to criminally investigate or prosecute any alcohol or drug abuse patient.[facility] the event this information is protected by the Federal Confidentiality of Alcohol and Drug Abuse Patient Records regulations: The Federal rules restrict any use of the information to criminally investigate or prosecute any alcohol or drug abuse patient.[facility] the event this information is protected by the Federal Confidentiality of Alcohol and Drug Abuse Patient Records regulations: The Federal rules restrict any use of the information to criminally investigate or prosecute any alcohol or drug abuse patient.[facility] the event this information is protected by the Federal Confidentiality of Alcohol and Drug Abuse Patient Records regulations: The Federal rules restrict any use of the information to criminally investigate or prosecute any alcohol or drug abuse patient.[facility] Care Teams (unrecognized sec tion and content) Psychological Operations Specialist Relationship Specialty Start Date End Date Nitza Treviño MD [address] [place] [address] PCP - General Internal Medicine 09/20/21 Psychological Operations Specialist Relationship Specialty Start Date End Date Nitza Treviño MD [address] [place] [address] PCP - General Internal Medicine 09/20/21 Psychological Operations Specialist Relationship Specialty Start Date End Date Nitza Treviño MD [address] [place] [address] PCP - General Internal Medicine 09/20/21 Psychological Operations Specialist Relationship Specialty Start Date End Date Nitza Treviño MD [facility] [place] [address] PCP - General Internal Medicine 09/20/21 Psychological Operations Specialist Relationship Specialty Start Date End Date Nitza Treviño MD [facility] [place] [address] PCP - General Internal Medicine 09/20/21 Psychological Operations Specialist Relationship Specialty Start Date End Date Nitza Treviño MD [address] [place] [address] PCP - General Internal Medicine 09/20/21 Psychological Operations Specialist Relationship Specialty Start Date End Date Nitza Treviño MD [address] [place] [address] PCP - General Internal Medicine 09/20/21 Psychological Operations Specialist Relationship Specialty Start Date End Date Nitza Treviño MD [address] [place] [address] PCP - General Internal Medicine 09/20/21 Team Status: Active Member Role Status Dates NKECHI GIMENEZ Family Provider Active Dr. Nitza Treviño MD Primary Care Provider Active Team Status: Inactive Member Role Status Dates Dr. Nitza Treviño MD Primary Care Provider Active Dr. Kasey Go MD Attending Provider, Referring Prov ider Active Psychological Operations Specialist Relationship Specialty Start Date End Date Nitza Treviño MD [address] [place] [address] PCP - General Internal Medicine 09/20/21 Psychological Operations Specialist Relationship Specialty Start Date End Date Nitza Treviño MD [address] [place] [address] PCP - General Internal Medicine 09/20/21 Psychological Operations Specialist Relationship Specialty Start Date End Date Nitza Treviño MD [address] [place] [address] PCP - General Internal Medicine 09/20/21 Team Status: Inactive Member Role Status Dates Dr. Nitza Treviño MD Primary Care Provider Active Manjeet Moncada MD Emergency Provider Active Team Status: Inactive Member Role Status Dates Dr. Nitza Treviño MD Primary Care Provider Active Tiffany Parnell MACHINIST LINOTYPE, MACHINIST LINOTYPE-C Attending Provider, Referring Provider Active Team Status: Inactive Member Role Status Dates Dr. Nitza Treviño MD Primary Care Provider Active Manjeet Moncada MD Attending Provider, Emergency Provid er Active Team Status: Inactive Member Role Status Dates Dr. Nitza Treviño MD Primary Care Provider Active Dr. Rebel Grider DO Emergency Provider Active Team Status: Inactive Member Role Status Dates Dr. Nitza Treviño MD Primary Care Provider, Referr ing Provider Active Tiffany Parnell MACHINIST LINOTYPE, MACHINIST LINOTYPE-C Attending Provider Active Team Status: Inactive Member Role Status Dates Dr. Nitza Treviño MD Primary Care Provider, Referr ing Provider Active Janett Thomas NP-C Attending Provider Active Team Status: Inactive Member Role Status Dates Dr. Nitza Treviño MD Primary Care Provider, Referr ing Provider Active Vivek LAGUNAS, PA Attending Provider Active Team Status: Inactive Member Role Status Dates Dr. Nitza Treviño MD Primary Care Provider Active Dr. Rebel Grider DO Attending Provider, Emergency Provider Active Team Status: Inactive Member Role Status Dates Dr. Nitza Treviño MD Primary Care Provider Active Dr. Zhen Kemp MD Emergency Provider Active Psychological Operations Specialist Relationship Specialty Start Date End Date Nitza Treviño MD [address] [place] [address] PCP - General Internal Medicine 09/20/21 Psychological Operations Specialist Relationship Specialty Start Date End Date Nitza Treviño MD [address] [place] [address] PCP - General Internal Medicine 09/20/21 Psychological Operations Specialist Relationship Specialty Start Date End Date Nitza Treviño MD [address] [place] [address] PCP - General Internal Medicine 09/20/21 Psychological Operations Specialist Relationship Specialty Start Date End Date Nitza Treviño MD [address] [place], [place] [address] PCP - General Internal Medicine 09/20/21 Psychological Operations Specialist Relationship Specialty Start Date End Date Nitza Treviño MD [address] [place], [place] [id number] PCP - General Internal Medicine 09/20/21 Corina Kent SNATH HANDLE ASSEMBLER.COMPUTER SYSTEMS SOFTWARE ENGINEER [address] [place], [place] [id number] Train Master Internal Medicine 07/22/24 Maknena Roberts, SNATH HANDLE ASSEMBLER.ISSUING OPERATOR [address] [place], [place] [id number] Train Master Internal Medicine 09/17/24 Reason for Visit (unrecogniz ed section and content) Reason Comments Results Reason Comments Results discuss lab results Gas [...] Is interested in confirming dx of jan. Reason Comments ER F/U 08/20/2023 due to sw ollen lymphnodes on neck Reason Onset Date Comments Population Health Navigation Outreach 02/21/2024 [facility] Reason Comments Thyroid Problem thyroid problem gett ing worse and unable to take pills due to gastric upset tongue scalloped but gettin g better. Related to Hasimoto thyroiditis Goals (unrecognized section and content) Goals may be documented in a n alternate sectionGoals may be documented in an alternate sectionGoals may be documented in an alternate sectionGoals may be documented in an alternate sectionGoals may be documented in an alternate section INFORMATION SOURCE (unrecogn ized section and content) DATE CREATED AUTHOR 01/03/2025 [facility] DATE CREATED AUTHOR LYNDA MURRAY 02/02/2025 [facility] FOR RECORDS PERTAINING TO PATIENTS WHO ARE [...] BE BASED ON THE PRIMARY CLINICAL RECORDS. [facility] [employer] provides no warranty or guarantee of the accuracy or completeness of information in this document.
== END | disposition home or self-care (01) ==
LOC: OPBI 07:44
PROVIDERS: PCP Internal Medicine; Referring Provider Nurse Practitioner Women's Health; Visit Provider Nurse Practitioner Women's Health
DX: Z12.31 Encounter for screening mammogram for malignant neoplasm of breast (principal)
CPT/HCPCS: 77063; 77067

== ENCOUNTER → 2025-02-18 | Outpatient (CLI) | payer MEDICARE, SELFPAY ==
--- NOTE | 2025-02-18 12:57 | BI_ITS ---
EXAM: DIAG MAMM W/CAD, UNILAT 02/18/2025 CLINICAL HISTORY: F, Age 69 y/o , ABN MAMM TECHNIQUE: Procedure Code: [id number] Modality: MG Procedure: DIAG MAMM W/CAD, UNILAT. Architectural distortion in the central slightly upper aspect of the left breast. COMPARISON: Prior exam(s) dated February 13, 2025 and February 18, 2025.. FINDINGS: TISSUE DENSITY: The breasts are extremely dense, which lowers the sensitivity of mammography. Bilateral Breast Mammographic Findings: Residual architectural distortion with nodular density on the additional views. Sonographic correlation recommended. BI/DIAG MAMM W/CAD, UNILAT IMPRESSION: Suspicious retroareolar nodular density with architectural distortion. Sonogra phic correlation recommended. OVERALL FINAL ASSESSMENT BI-RADS 0: INCOMPLETE - NEED ADDITIONAL IMAGING EVALUATION. RECOMMENDATION: Ultrasound Recommended Additional Recommendation none A letter with findings and recommendations will be mailed to the patient. Reading Location: [place] [address]
--- NOTE | 2025-02-18 12:57 | US_ITS ---
PROCEDURE: BREAST LIMITED UNILATERAL 02/18/2025 REASON FOR EXAM: F, Age 69 y/o , ABN MAMM Abnormal screening left mammogram. COMPARISON: Prior mammogram dated February 18, 2025 as well as February 13, 2025.. TECHNIQUE: Procedure Code: [id number] Modality: US Procedure: BREAST LIMITED UNILATERAL. FINDINGS: Persistent area of architectural distortion in the retroareolar region of the left breast. There is a 1.6 cm 1.2 cm x 0.8 cm stellate nodular density at the 12 o'clock position of the breast behind the nipple. There is also evidence of a left axillary lymph node measuring 1.5 cm 0.9 cm x 0.8 cm. Sonographic correlation recommended. US/Breast Limited Unilateral IMPRESSION: Persistent architectural distortion in the retroareolar region of the left [address]. There is a nodular density measuring 1.6 cm 1.2 cm 0.8 cm. 1.5 cm x 0.9 cm x 0.8 cm. Biopsy recommended. Lymph node in t he left axilla. BI-RADS 4: SUSPICIOUS RECOMMENDATION: Biopsy Recommended Reading Location: [place] [address]
== END | disposition home or self-care (01) ==
PROVIDERS: PCP Internal Medicine; Referring Provider Nurse Practitioner Women's Health; Visit Provider Nurse Practitioner Women's Health
DX: N64.89 Other specified disorders of breast (principal)
CPT/HCPCS: 76642; 77061; 77065; G0279